=== PATIENT | male | born 1960 | race Caucasian/White ===

== ENCOUNTER 2017-03-26 13:43 | Inpatient (IN) ==
[2017-03-26] MEDS ORDERED: DILTIAZEM 50 MG/10 ML VIAL IV STA (14:12)
[2017-03-26] MEDS ORDERED: ENOXAPARIN 100 MG/ML SYRINGE SUBCUT STA (14:12)
[2017-03-26] MEDS ORDERED: ASPIRIN 325 MG TABLET PO STA (14:12)
--- NOTE | 2017-03-26 14:16 | EKG Report ---
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
--- NOTE | 2017-03-26 14:30 | XRay Report ---
Referring Physician: Ramin Bowen Exam: XR chest 1V portable Date: March 26, 2017 at 2:15 PM Reason: Chest pain Comparison: Chest one view portable February 03, 2017 Findings: The cardiac silhouette is again enlarged. The interstitial markings are slightly prominent bilaterally, which could reflect minimal pulmonary edema. No pneumothorax or definite pleural fluid is identified. No acute osseous process is seen. Impression: 1. Cardiomegaly. 2. Possible minimal pulmonary edema. PROCEDURE INTERPRETED AT [facility] DEPARTMENT OF RADIOLOGY Final Report Signed by: Dr. Alie Pearson
[2017-03-26] MEDS ORDERED: ENOXAPARIN 120 MG/0.8 ML SYRINGE SUBCUT ONE (14:51)
[2017-03-26] MEDS ORDERED: ASPIRIN 325 MG TABLET ONE (14:51)
[2017-03-26] MEDS ORDERED: DILTIAZEM 50 MG/10 ML VIAL IV ONE (14:51)
[2017-03-26 15:00] LABS: INR 1.1; PT Patient Result 11.9 SECS
[2017-03-26 15:17] LABS: Albumin 3.6 G/DL (3.4-5.0); Bilirubin,Total 1.5 MG/DL (0.2-1.0); Calcium 8.8 MG/DL (8.5-10.1); Osmolality,Calculated 279.4 MOS/KG (273-304); Total Protein 6.4 G/DL (6.4-8.3)
--- NOTE | 2017-03-26 16:20 | Emergency Department Note ---
Timothy Amado Gwan, am scribing for, and in the presence of, Ramin Bowen MD 14:21. Jessi Amado Phillip K, MD, personally performed the services described in this documentation, ascribed by Edgardo Aguirre in my presence, and it is both accurate and complete . Arrival - Arrival Chief Complaint: Chest Pain Stated Complaint: chest pain Mode of Arrival: Stretcher Limitations: No Limitations Source: Patient, Old Records Reviewed, RN Notes Reviewed Time Seen by Provider: 03/26/17 14:12 - History of Present Illness HPI Narrative: Patient is a 56 y/o obese white male who presents to the ED with a c/o sharp chest pain and SOB with an onset this morning. Patient has poor hygiene. He stated that he was laying in bed when onset occurred and that his pain stayed in his chest. He denies any cough, fever, diaphoresis or any N/V. He continued to note that he was last hospitalized 6 months ago due to CHF. He is followed by Dr. Josue and Dr. Car. During exam, pt stated that he fell yesterday and he is unsure how it happened. Onset (ago): hour(s) Consistency: constant Severity: moderate Allergies/Adverse Reactions: Allergies Allergy/AdvReac Type Severity Reaction Status Date / Time No Known Allergies Allergy Verified 03/04/17 03:46 Home Medications: Home Medications Medication Instructions Recorded Confirmed Type Carvedilol 6.25 mg PO BID 12/10/15 11/25/16 History Furosemide 20 mg PO BID 12/10/15 11/25/16 History Lisinopril 5 mg PO BEDTIME 12/10/15 11/25/16 History Potassium Chloride 10 meq PO BID 12/10/15 11/25/16 History Apixaban [Eliquis] 5 mg PO BID #60 tablet 06/20/16 11/25/16 Rx Spironolactone [Aldactone] 25 mg PO DAILY #30 tablet 06/20/16 11/25/16 Rx Folic Acid Tab 1 mg PO DAILY 10/24/16 11/25/16 History Magnesium Chloride [Slow Mag] 64 mg PO BID 10/24/16 11/25/16 History Metoprolol Tartrate 25 mg PO Q12HR #60 tablet 10/24/16 11/25/16 Rx Zolpidem Tartrate 10 mg PO BEDTIME 10/24/16 11/25/16 History dilTIAZem HCl [Diltiazem ER] 240 mg PO BID 10/24/16 11/25/16 History metFORMIN [Glucophage] 500 mg PO BID W/MEALS 10/24/16 11/25/16 History HYDROcodone/ACETAMIN 7.5-325 1 tablet PO Q6H #14 tablet 11/19/16 11/25/16 Rx [Como 7.5-325] Indomethacin Cap [Indocin Cap] 25 mg PO Q6H PRN #30 capsule 11/25/16 Rx Furosemide Tab [Lasix Tab] 40 mg PO DAILY #14 tablet 02/03/17 Rx Furosemide Tab [Lasix Tab] 20 mg PO BID DIURETIC #20 tablet 03/04/17 Rx HYDROcodone/ACETAMIN 7.5-325 1 tablet PO Q6H #14 tablet 03/04/17 Rx [Como 7.5-325] Review of System - Review of System 12 point system: reviewed and no additional remarkable complaints except as stated - Review of System Constitutional: Absent: chills, fever Eyes: Absent: discharge Head/Ears/Nose/Throat: Absent: earache Respiratory: Absent: cough Cardiovascular: Present: as per HPI, chest pain Gastrointestinal: Absent: abdominal pain, nausea, vomiting, diarrhea Genitourinary male: Absent: urgency, frequency Musculoskeletal: Absent: arm pain, back pain, leg pain, neck pain Skin: Absent: rash, lesions Neurological: Absent: headache, weakness Medical,Surgical,& Family Hx - Medical History Cardio: History of: Cardiac Dysrhythmia (A-FIB), CHF, Hypertension, [place] Neurology: No history of: Seizures Endocrine: History of: Diabetes Mellitus (NIDDM) - Surgical History Cardiac Surgeries: Patient Denies: Cardiac Catheterization Abdominal Surgeries: Surgical HX of: Appendectomy - Social History Smoking Status: Never smoker Exam Vital Signs: Vital Signs Temperature 98.2 F 03/26/17 13:45 Pulse Rate 142 H 03/26/17 13:58 Respiratory Rate 20 03/26/17 13:58 Blood Pressure 115/88 03/26/17 13:45 O2 Sat by Pulse Oximetry 98 03/26/17 13:45 - General General appearance: alert, in no apparent distress, obese - Head Head exam: Present: atraumatic, normocephalic - Eye Eye exam: Present: normal appearance, PERRL, EOMI - ENT ENT exam: Present: normal oropharynx, mucous membranes moist, TM's normal bilaterally, normal external ear exam - Neck Neck exam: Present: full ROM, trachea midline. Absent: tenderness - Chest Chest inspection: Present: symmetric chest wall rise. Absent: tenderness - Respiratory Respiratory exam: Present: normal lung sounds bilaterally. Absent: respiratory distress - Cardiovascular Cardiovascular exam: Present: tachycardia, irregular rhythm - Abdominal Exam Abdominal exam: Present: soft, normal bowel sounds. Absent: tenderness - Extremities Exam Extremities exam: Present: other (+1 pitting edema bilaterally) - Back Exam Back exam: Present: full ROM. Absent: tenderness - Neurological Exam Neurological exam: Present: alert, oriented X3, CN II-XII intact. Absent: motor sensory deficit - Psychiatric Psychiatric exam: Present: normal affect, normal mood - Skin Skin exam: Present: warm, dry, intact, normal color Course Course Narrative: Patient discussed with the hospitalist will admit for monitoring and control of his atrial fib. Results - Labs CBC & BMP: 03/26/17 14:45 Lab Results: I have reviewed the patients labs (Troponin is negative) Labs: Laboratory Tests 03/26/17 14:45 INR 1.1 PT Patient/Control Mix 11.9 D Laboratory Tests 03/26/17 03/26/17 03/26/17 14:45 14:45 14:45 INR 1.1 PT Patient/Control Mix 11.9 D Sodium 140 Potassium 4.0 Chloride 107 Carbon Dioxide 23 BUN 10 Creatinine 0.90 Glucose 129 H Total Bilirubin 1.50 H B-Natriuretic Peptide 310 H - EKG EKG results: interpreted by MAGDA (Atrial fibrillation with RVR) - Diagnostic Findings Procedure: Chest x-ray: report reviewed by me (1. Cardiomegaly. 2. Possible minimal pulmonary edema. ) Disposition Clinical Impression: Atrial fibrillation with rapid ventricular response, Chest pain, Possible angina Case discussed with: patient Disposition: Still a Patient Condition: Guarded Additional Instructions: Admit to the hospitalist
[2017-03-26] MEDS ORDERED: FUROSEMIDE 40 MG/4 ML VIAL IV STA (16:21)
[2017-03-26] MEDS ORDERED: FUROSEMIDE 40 MG/4 ML VIAL ONE (16:23)
[2017-03-26 16:35] LABS: Basophils # 0.1 10*3/uL (0.0-0.2); Basophils % 1.2 % (0.0-0.8); Eosinophils # 0.2 10*3/uL (0.0-0.87); Eosinophils % 2.6 % (0.00-10.9); Hematocrit 47.6 VOL% (42.0-52.0); Hemoglobin 16.2 GM/DL (14.0-18.0); Immature Granulocytes % 0.5 %; Immature Granulocytes Absolute 0.03 #; Lymphocytes # 1.2 10*3/uL (1.4-4.0); Lymphocytes % 21.2 % (21.2-54.2); Mean Corpuscular Hemoglobin 33 PG (27-34); Mean Corpuscular Volume 97.5 FL (87-102); Mean Platelet Volume 11.5 FL (9.6-12.0); Monocytes # 0.5 10*3/uL (0.11-0.8); Monocytes % 8.3 % (1.7-12.7); Neutrophils # 3.8 10*3/uL (1.4-7.4); Neutrophils % 66.2 % (38.7-73.9); Platelet Count 125 T/CUMM (130-400); Red Blood Count 4.88 MC/CUMM (3.8-5.5); Red Cell Distribution Width 14.6 % (9.3-17.3); White Blood Count 5.8 T/CUMM (4-12)
--- NOTE | 2017-03-26 16:41 | Hospitalist History & Physical ---
Assessment and Plan - Time spent with patient Time spent with patient: Greater than 30 minutes (1) Atrial fibrillation with rapid ventricular response Status: Acute Assessment and plan: Patient is currently in atrial fibrillation with rapid ventricular response. He is received IV Cardizem in the emergency room which we will continue in an attempt to obtain rate control. He states he has been compliant with his medications however he has multiple bottles in his back which he does admit to not taking which are primarily antibiotics and he also has multiple bottles of duplicate medications including Coreg and metoprolol. We will begin Lovenox at this time. He may benefit from outpatient sleep study in the future as well. Will reinitiate his home medications, obtain serial cardiac isoenzymes and EKG, d-dimer plus or minus evaluation for possible pulmonary emboli/lower extremity DVT, and consult cardiology for their assistance. Current Visit: Yes (2) Congestive heart failure Status: Acute Assessment and plan: The patient is decompensated which may be rate related. We will attempt to obtain rate control and diuresed gently and will also initiate meds for his acute on chronic systolic heart failure to include denise inhibitors if he can tolerate. Current Visit: Yes Qualifiers: Congestive heart failure type: systolic (3) Diabetes mellitus Status: Acute Assessment and plan: We will continue his metformin unless he receives contrast at which time we will withhold. Will place him on Accu-Cheks with sliding scale insulin. Current Visit: Yes Qualifiers: Diabetes mellitus type: type 2 History of Present Illness Chief complaint: Chest pain, shortness of breath History of present illness: Mr. Pearson is a 56 year old white male patient states he fell twice last evening because he has neuropathy in his legs. This morning approximately 8 AM he states he woke up with sharp mid chest pain with associated shortness of breath but no nausea, vomiting, diaphoresis. He denies any headache, visual or auditory disturbances, fever, chills, diarrhea, constipation, melena, hematochezia, hematemesis, dysuria, hematuria, frequency urgency or incontinence , focal motor weakness or paresthesias. He was seen in our emergency department and found to be in atrial fibrillation with rapid ventricular response. He states that he has dyspnea on exertion and ambulates at home with the use of a walker. He states he only sleeps with one pillow at night. He states that he has had a "light heart attack" in the past. He states he had been on blood thinners in the past but they took him off of everything including his aspirin. His primary care provider is Dr. Darryl Car and his contracting manager Dr. Dixon Josue. He was hospitalized last year for similar symptoms at which time he had echocardiogram which noted the following: Echo from Jun 2016: Severely limited study Mild increased left ventricular cavity size with moderately decreased left ventricular systolic function, left ventricular ejection fraction is estimated at 30-35%. Mild concentric left ventricular hypertrophy with diastolic dysfunction. Bilateral atrial enlargement. Mildly thickened mitral valve with mild mitral regurgitation. Home Medications Medication Instructions Recorded Confirmed Type Carvedilol 6.25 mg PO BID 12/10/15 03/26/17 History Potassium Chloride 10 meq PO BID 12/10/15 03/26/17 History Folic Acid Tab 1 mg PO DAILY 10/24/16 03/26/17 History Magnesium Chloride [Slow Mag] 64 mg PO BID 10/24/16 03/26/17 History Metoprolol Tartrate 25 mg PO Q12HR #60 tablet 10/24/16 03/26/17 Rx Zolpidem Tartrate 10 mg PO BEDTIME 10/24/16 03/26/17 History dilTIAZem HCl [Diltiazem ER] 240 mg PO BID 10/24/16 03/26/17 History metFORMIN [Glucophage] 500 mg PO BID 10/24/16 03/26/17 History Furosemide Tab [Lasix Tab] 40 mg PO DAILY #14 tablet 02/03/17 03/26/17 Rx Ciprofloxacin HCl [Ciprofloxacin 500 mg PO Q12H 03/26/17 03/26/17 History Tab] Furosemide Tab [Lasix Tab] 20 mg PO BID 03/26/17 03/26/17 History HYDROcodone/ACETAMIN 10-325 [[place] 1 tablet PO QID 03/26/17 03/26/17 History 10-325] Sulfameth/Trimeth 800-160 Tab 1 tablet PO BID 03/26/17 03/26/17 History [Bactrim DS Tab] Allergies Allergy/AdvReac Type Severity Reaction Status Date / Time No Known Allergies Allergy Verified 03/04/17 03:46 Medical,Surgical,& Family Hx - Medical History Cardio: History of: Cardiac Dysrhythmia (A-FIB), CHF, Hypertension, [place] Neurology: No history of: Seizures Endocrine: History of: Diabetes Mellitus (NIDDM) - Surgical History Cardiac Surgeries: Patient Denies: Cardiac Catheterization Abdominal Surgeries: Surgical HX of: Appendectomy - Family History Family History: Reports;: Family Cancer (Father had colon cancer) - Social History Smoking Status: Never smoker Frequency of Alcohol Use: None Type of Drug Use: None Marital Status: Lives With:: Spouse Functional capacity: uses cane/walker 12 point system: reviewed and no additional remarkable complaints except as stated Exam - Constitutional Vitals: Period Temp Pulse Resp BP Sys/Lopez Pulse Ox Last 24 Hr 98.2 F-98.2 F 140-142 18-20 115-115/88-88 98 General appearance: no acute distress, disheveled - Head Head exam: Present: normocephalic, atraumatic - Eye Eye exam: Present: EOMI Pupils: Present: WALTER - ENT ENT exam: Present: normal oropharynx - Neck Neck exam: Present: normal inspection. Absent: lymphadenopathy, meningismus, tenderness, thyromegaly - Respiratory Respiratory exam: Present: clear to auscultation bilaterally. Absent: rales, rhonchi, wheezes - Cardiovascular Cardiovascular exam: Present: irregular rhythm, tachycardia. Absent: systolic murmur - GI/Abdominal GI/Abdominal exam: Present: normal bowel sounds, soft. Absent: distended, mass , tenderness, rebound - Extremities Exam Extremities exam: Present: edema (1+ bilateral lower extreme). Absent: calf tenderness - Back Exam Back exam: Present: normal inspection - Neurological Exam Neurological exam: Present: alert, oriented X3, CN II-XII intact, other ( Decreased sensation of lower extremities to touch) - Psychiatric Psychiatric exam: Present: normal affect, normal mood. Absent: agitated, anxious - Skin Skin exam: Present: warm, dry. Absent: rash Results - Labs CBC & BMP: 03/26/17 16:32 03/26/17 14:45 Lab Results: I have reviewed the past 24 hour labs - EKG EKG shows: tachycardia, atrial fibrillation - Diagnostic Findings Procedure: Chest x-ray: report reviewed by me
[2017-03-26] MEDS ORDERED: DILTIAZEM INJ 100 MG in SODIUM CHLORIDE 0.9% 100 ML IV SCH (17:30)
[2017-03-26] MEDS ORDERED: DEXTROSE 50% 25 GM/50 ML VIAL IV PRN (18:12)
[2017-03-26] MEDS ORDERED: GLUCAGON 1 MG VIAL IM PRN (18:12)
[2017-03-26] MEDS ORDERED: ACETAMINOPHEN 325 MG TABLET PO PRN (18:12)
[2017-03-26] MEDS ORDERED: ONDANSETRON 4 MG/2 ML VIAL IV PRN (18:12)
[2017-03-26] MEDS: NITROGLYCERIN 2% OINT 1 INCH/GM PACK TOP SCH ×2 (19:19→23:35)
[2017-03-26] MEDS: metFORMIN 500 MG TABLET PO SCH (22:15)
[2017-03-26] MEDS: MAGNESIUM CHLORIDE 64 MG TABLET PO SCH (22:15)
[2017-03-26] MEDS: CARVEDILOL 6.25 MG TABLET PO SCH (22:15)
[2017-03-26] MEDS: POTASSIUM CHLORIDE 10 MEQ TABLET PO SCH (22:16)
[2017-03-26] MEDS: INSULIN REGULAR 100 UNIT/ML SUBCUT SCH (22:18)
[2017-03-26] MEDS: ZALEPLON 5 MG CAPSULE PO SCH (23:36)
[2017-03-27] MEDS: ENOXAPARIN 120 MG/0.8 ML SYRINGE SUBCUT SCH ×2 (05:00→17:24)
[2017-03-27] MEDS: FUROSEMIDE 40 MG/4 ML VIAL IV SCH ×3 (05:01→17:20)
[2017-03-27 05:25] LABS: Calcium 8.3 MG/DL (8.5-10.1); Osmolality,Calculated 282.1 MOS/KG (273-304); Potassium 4.4 MMOL/L (3.5-5.1); Risk Ratio 4.04; VLDL CHOLESTEROL 19.2 MG/DL
[2017-03-27] MEDS: NITROGLYCERIN 2% OINT 1 INCH/GM PACK TOP SCH ×4 (06:06→23:28)
[2017-03-27 07:18] LABS: Basophils % 0.9 % (0.0-0.8); Eosinophils # 0.2 10*3/uL (0.0-0.87); Eosinophils % 3.9 % (0.00-10.9); Hematocrit 42.8 VOL% (42.0-52.0); Hemoglobin 14.5 GM/DL (14.0-18.0); Immature Granulocytes % 0.4 %; Immature Granulocytes Absolute 0.02 #; Lymphocytes # 1.4 10*3/uL (1.4-4.0); Lymphocytes % 30.1 % (21.2-54.2); Mean Corpuscular HGB Conc 33.9 GM/DL (32-36); Mean Corpuscular Hemoglobin 34 PG (27-34); Mean Corpuscular Volume 101.4 FL (87-102); Mean Platelet Volume 11.2 FL (9.6-12.0); Monocytes # 0.5 10*3/uL (0.11-0.8); Monocytes % 10.1 % (1.7-12.7); Neutrophils # 2.5 10*3/uL (1.4-7.4); Neutrophils % 54.6 % (38.7-73.9); Platelet Count 109 T/CUMM (130-400); Red Blood Count 4.22 MC/CUMM (3.8-5.5); Red Cell Distribution Width 14.8 % (9.3-17.3); White Blood Count 4.7 T/CUMM (4-12)
[2017-03-27] MEDS: INSULIN REGULAR 100 UNIT/ML SUBCUT SCH ×4 (08:05→21:08)
[2017-03-27] MEDS: metFORMIN 500 MG TABLET PO SCH ×2 (08:40→21:07)
[2017-03-27] MEDS: FOLIC ACID 1 MG TABLET PO SCH (08:40)
[2017-03-27] MEDS: LISINOPRIL 5 MG TABLET PO SCH (08:40)
[2017-03-27] MEDS: MAGNESIUM CHLORIDE 64 MG TABLET PO SCH ×2 (08:40→21:07)
[2017-03-27] MEDS: CARVEDILOL 6.25 MG TABLET PO SCH (08:40)
[2017-03-27] MEDS: ASPIRIN 325 MG TABLET PO SCH (08:40)
[2017-03-27] MEDS: POTASSIUM CHLORIDE 10 MEQ TABLET PO SCH ×2 (08:40→21:07)
--- NOTE | 2017-03-27 09:59 | Cardiology Consult Note ---
<Erika Magaña - Last Filed: 03/27/17 09:03> Assessment and Plan - Time spent with patient Time spent with patient: Greater than 30 minutes (1) Atypical chest pain Status: Acute Assessment and plan: SEE PLAN OF CARE LISTED BELOW. Current Visit: Yes (2) Hypertension Status: Chronic Assessment and plan: SEE PLAN OF CARE LISTED BELOW. Current Visit: Yes (3) Obesity Status: Chronic Assessment and plan: SEE PLAN OF CARE LISTED BELOW. Current Visit: Yes (4) Congestive heart failure Status: Acute Assessment and plan: SEE PLAN OF CARE LISTED BELOW. Current Visit: Yes Qualifiers: Congestive heart failure type: systolic Congestive heart failure chronicity : acute on chronic Qualified Code(s): I50.23 - Acute on chronic systolic ( congestive) heart failure (5) Atrial fibrillation with rapid ventricular response Status: Acute Assessment and plan: SEE PLAN OF CARE LISTED BELOW. Current Visit: Yes (6) Diabetes mellitus Status: Chronic Assessment and plan: SEE PLAN OF CARE LISTED BELOW. Current Visit: Yes Qualifiers: Diabetes mellitus type: type 2 (7) Alcoholic cardiomyopathy Status: Chronic Assessment and plan: SEE PLAN OF CARE LISTED BELOW. Current Visit: Yes (8) Noncompliance with medication regimen Status: Chronic Assessment and plan: SEE PLAN OF CARE LISTED BELOW. Current Visit: Yes (9) Tobacco abuse Status: Chronic Assessment and plan: SEE PLAN OF CARE LISTED BELOW. Current Visit: Yes History of Present Illness - Data of Consult Patient: known to practice within the last 3 years Consult date: 03/27/17 Requesting Physician: Eh Mclaughlin Primary care physician: Darryl Car - Consult Narrative Reason for consult: afib RVR, CHF History of present illness: [employer] Designer: Dr. Josue PCP: Dr. Car Mr. Pearson is a 56 year old male who is not a very good historian, routinely followed by Dr. Josue. Patient presented to the emergency room yesterday evening with complaints of chest pain and shortness of breath. Patient has cardiac risk factors significant for tobacco abuse (chewing tobacco), obesity, hypertension, diabetes and sedentary lifestyle. Patient has past medical history of alcoholic cardiomyopathy, congestive heart failure (systolic dysfunction), chronic atrial fibrillation, alcoholism and noncompliance with medications. Patient reports that he has never undergone heart catheterization or cardiac stress testing. He was last seen in the cardiology clinic November 2016. At that time, Dr. Josue felt that he was noncompliant with medications. Per Dr. Josue his clinic note Eliquis was added previously. However, patient reports that he has not taken Eliquis in approximately 3-4 months as he ran out of his prescription. He reports that he had been given samples and when these ran out he could not afford this medication. Reports that he did not attempt to call the [facility] in order to try to get more samples. He just simply quit taking the medication. Patient was in his usual state of health until yesterday when he began experiencing shortness of breath and sharp left-sided chest pain while lying down in bed. Reports that this lasted approximately 3-4 hours. Patient is unable to identify any specific alleviating or aggravating factors. He reports that this does not have any type of exertional component. Patient is unable to rate his pain on a scale from 1-10. This was nonradiating. Not associated with nausea, vomiting, diaphoresis or heart palpitations/racing. He confirms orthopnea and worsening lower extremity swelling. Patient reports that his chest pain was continuous for 3-4 hours. At that point, he felt that he needed to be further evaluated in the emergency department. Upon arrival to the ER, he was noted to be in atrial fibrillation with rapid ventricular response, heart rates as high as 130. He was also given nitroglycerin which he reports did not have any effect on his chest pain. Later that day, he tells me that his chest pain went away continuously. He is not sure exactly what relieved his pain. Patient was started on IV Cardizem and admitted under hospitalist's service. He has been housed on the telemetry unit. Cardiology has been consulted to further assist in patient's atrial fibrillation and congestive heart failure treatment. Patient was seen and examined on the telemetry unit. He remains in atrial fibrillation with a controlled ventricular response, heart rates in the 80s. Patient's chest x-ray was suggestive for cardiomegaly and mild pulmonary edema. BNP only mildly elevated at 310. TSH and T4 within normal limits. Cardiac biomarkers have been negative 3. EKG reveals atrial fibrillation with rapid ventricular response with nonspecific T-wave abnormality. Patient's acute on chronic congestive heart failure most likely related to medication noncompliance and atrial fibrillation with rapid ventricular response. At this point, I will order echocardiogram in order to reevaluate patient's systolic function and continue to diurese gently. Monitor I's and O's and daily weights. Continue SAGRARIO inhibitor and beta-henny. I will transition patient to p.o. Cardizem today and continue to anticoagulate with therapeutic dose of Lovenox. Monitor patient overnight on telemetry. I will further discuss with Dr. Irby and await his further recommendations. ASSESSMENT/PLAN : 1. ATYPICAL CHEST PAIN - Patient's chest pain is atypical in nature. Most likely related to patient's atrial fibrillation with RVR. Troponin has been negative 3. EKG reveals atrial fibrillation with rapid ventricular response with nonspecific T-wave abnormality. I do not feel that this is ACS. Patient is not demonstrating compliance and for that reason I do not feel that patient is a candidate for further workup. He is not having any anginal type symptoms and cardiac biomarkers have been negative thus far. At this point I would recommend patient to continue daily aspirin, beta-henny and follow-up with Dr. Josue post discharge. Lipid panel has been reviewed. Cholesterol is stable. 2. ACUTE ON CHRONIC CONGESTIVE HEART FAILURE SECONDARY TO SYSTOLIC DYSFUNCTION - Suspect that this is secondary to atrial fibrillation with RVR as well as medication noncompliance. Patient's chest x-ray was suggestive for mild pulmonary edema and cardiomegaly. BNP only mildly elevated at 310. Most recent ejection fraction was noted to be 30-35% from June and . We will repeat echocardiogram in order to reevaluate patient's systolic function. Continue to diurese with IV Lasix. Continue beta-henny and SAGRARIO inhibitor. Will increase these medications as patient's blood pressure will allow. Daily weights and strict I's and O's. Will consider adding Aldactone. 4. ALCOHOLIC CARDIOMYOPATHY - Most recent ejection fraction 30-35%, June 2016. We will repeat echocardiogram in order to reevaluate patient's systolic function. Continue to diurese with IV Lasix. Continue beta-henny and SAGRARIO inhibitor. Will increase these medications as patient's blood pressure will allow. 5. ATRIAL FIBRILLATION WITH RVR - Suspect that patient is noncompliant with his medication regimen. Patient is now rate controlled. This appears to be chronic. Will transition patient to p.o. Cardizem today. Continue beta- blockade. In the past, patient was anticoagulated with Eliquis. However, he reports that he has not been on this medication for 3-4 months as he ran out of his prescription. He reports that he has been given samples and when these ran out he could not afford this particular medication. At this point, he is being anticoagulated with therapeutic dose of Lovenox. For now, this will be continued. I will further discuss with Dr. Irby about other anticoagulation options. It is questionable whether patient is a candidate for Coumadin as he will most likely not follow up appropriately for INR checks. NOAC will most likely be the best choice. Will attempt to choose one that will be covered by patient's insurance at discharge. Also, patient may benefit from sleep study. 6. DIABETES - Recently diagnosed. Defer management to attending. 7. HYPERTENSION - Well controlled. Continue current plan of care. Will adjust medications as needed throughout his hospitalization. 8. MEDICATION NONCOMPLIANCE DUE TO INADEQUATE FUNDS -counseled patient on the importance of medication compliance. Will also attempt to prescribe medications that are affordable and covered by patient's insurance company. 9. TOBACCO ABUSE (CHEWING TOBACCO) - Educated patient on the importance of cessation of tobacco abuse. 10. OBESITY - Counseled patient on the importance of weight loss. Further plan and addendum to follow per Dr. Irby. CC: Darrian De La Rosa MD - Home Medications and Allergies Home Medications: Home Medications Medication Instructions Recorded Confirmed Type Carvedilol 6.25 mg PO BID 12/10/15 03/26/17 History Potassium Chloride 10 meq PO BID 12/10/15 03/26/17 History Folic Acid Tab 1 mg PO DAILY 10/24/16 03/26/17 History Magnesium Chloride [Slow Mag] 64 mg PO BID 10/24/16 03/26/17 History Metoprolol Tartrate 25 mg PO Q12HR #60 tablet 10/24/16 03/26/17 Rx Zolpidem Tartrate 10 mg PO BEDTIME 10/24/16 03/26/17 History dilTIAZem HCl [Diltiazem ER] 240 mg PO BID 10/24/16 03/26/17 History metFORMIN [Glucophage] 500 mg PO BID 10/24/16 03/26/17 History Furosemide Tab [Lasix Tab] 40 mg PO DAILY #14 tablet 02/03/17 03/26/17 Rx Ciprofloxacin HCl [Ciprofloxacin 500 mg PO Q12H 03/26/17 03/26/17 History Tab] HYDROcodone/ACETAMIN 10-325 [[place] 1 tablet PO QID 03/26/17 03/26/17 History 10-325] Sulfameth/Trimeth 800-160 Tab 1 tablet PO BID 03/26/17 03/26/17 History [Bactrim DS Tab] Allergies/Adverse Reactions: Allergies Allergy/AdvReac Type Severity Reaction Status Date / Time No Known Allergies Allergy Verified 03/04/17 03:46 - Constitutional Constitutional: Present: fatigue, weight gain. Absent: chills, fever(s), frequent falls, weakness - Cardiovascular Cardiovascular: Present: chest pain at rest, dyspnea, edema, orthopnea, PND. Absent: chest pain with activity, claudication, diaphoresis, dyspnea on exertion , radiating jaw, neck or arm pain, lightheadedness, palpitations - Respiratory Respiratory: Present: cough, dyspnea, snoring. Absent: hemoptysis, dyspnea on exertion, wheezing, pain on inspiration, change in phlegm color - Gastrointestinal Gastrointestinal: Absent: abdominal pain, change in bowel habits, coffee ground emesis, hematemesis, hematochezia, loose stools, melena, nausea, vomiting - Neurological Neurological: Absent: abnormal gait, abnormal speech, behavioral changes, dizziness, frequent falls, syncope - Hematologic/Lymphatic Hematologic/Lymphatic: Absent: easy bleeding, easy bruising, lymphadenopathy Medical,Surgical,& Family Hx - Medical History Cardio: History of: Cardiac Dysrhythmia (A-FIB), CHF, Hypertension, Cardiovascular Problems (Alcoholic cardiomyopathy) Neurology: No history of: Seizures Endocrine: History of: Diabetes Mellitus (NIDDM) Musculoskeletal: History of: Back/Neck Problems, Herniated Disk - Surgical History Abdominal Surgeries: Surgical HX of: Appendectomy, EGD - Family History Family History: Reports;: Family Cancer (Father had colon cancer), Family Hypertension - Social History Smoking Status: Never smoker Frequency of Alcohol Use: Frequently Type of Drug Use: None Marital Status: Single Lives With:: Alone Functional capacity: independent ambulation Physical Examination Vital Signs Temp Pulse Resp BP Pulse Ox 98.2 F 140 H 18 115/88 98 03/26/17 13:45 03/26/17 13:45 03/26/17 13:45 03/26/17 13:45 03/26/17 13:45 Other: General: Appears well with no apparent distress. Obese. Appears comfortable. HEENT: PERRL, normocephalic, atraumatic. Mucous membranes moist. No jaundice noted. Conjunctiva moist and clear, sclerae anicteric Neck: No JVD/HJR, no thyromegaly or lymphadenopathy noted. No carotid bruit appreciated Cardiac: Irregular rhythm. Grade 1 systolic murmur. Lungs: Clear to auscultation with decreased breath sounds and bases. Requiring oxygen via nasal cannula Abdomen: Soft, bowel sounds normoactive. Nontender and nondistended. No abdominal bruit or thrill noted. No masses noted. Extremities: No clubbing, cyanosis noted. 2+ bilateral lower extremity edema. Capillary refill less than 3 seconds. Skin: No unusual lesions or rashes. No skin breakdown appreciated. Neuro: Awake, alert and oriented 3. Moves all extremities well without hemiparesis or paralysis. No essential tremor is appreciated. Result/EKG - Labs CBC & BMP: 03/27/17 04:31 03/27/17 04:26 Lab Results: I have reviewed the past 24 hour labs Labs: Laboratory Results - last 24 hr 03/26/17 03/26/17 03/26/17 14:45 14:45 14:45 WBC RBC Hgb Hct MCV MCH MCHC RDW Plt Count MPV Neut % (Auto) Lymph % (Auto) [place] % (Auto) Eos % (Auto) Baso % (Auto) Neut # (Auto) Lymph # (Auto) [place] # (Auto) Eos # (Auto) Baso # (Auto) Immature Gran % Nucleated RBC % Immature Gran # Nucleated RBCs # INR 1.1 PT Patient/Control Mix 11.9 D D-Dimer, Quantitative Sodium 140 Potassium 4.0 Chloride 107 Carbon Dioxide 23 Anion Gap 14.0 BUN 10 Creatinine 0.90 GFR Calculation 130 BUN/Creatinine Ratio 11.00 Glucose 129 H POC Glucose Hemoglobin A1c Calculated Osmolality 279.4 Calcium 8.8 Total Bilirubin 1.50 H AST 26 ALT 25 Alkaline Phosphatase 74 Troponin I < 0.015 B-Natriuretic Peptide Total Protein 6.4 Albumin 3.6 Globulin 2.8 Albumin/Globulin Ratio 1.2 Triglycerides Cholesterol LDL Cholesterol VLDL Cholesterol HDL Cholesterol Heart Disease Risk Ratio Free T4 TSH 3rd Generation 03/26/17 03/26/17 03/26/17 14:45 14:45 14:45 WBC RBC Hgb Hct MCV MCH MCHC RDW Plt Count MPV Neut % (Auto) Lymph % (Auto) [place] % (Auto) Eos % (Auto) Baso % (Auto) Neut # (Auto) Lymph # (Auto) [place] # (Auto) Eos # (Auto) Baso # (Auto) Immature Gran % Nucleated RBC % Immature Gran # Nucleated RBCs # INR PT Patient/Control Mix D-Dimer, Quantitative <= 0.5 Sodium Potassium Chloride Carbon Dioxide Anion Gap BUN Creatinine GFR Calculation BUN/Creatinine Ratio Glucose POC Glucose Hemoglobin A1c Calculated Osmolality Calcium Total Bilirubin AST ALT Alkaline Phosphatase Troponin I B-Natriuretic Peptide 310 H Total Protein Albumin Globulin Albumin/Globulin Ratio Triglycerides Cholesterol LDL Cholesterol VLDL Cholesterol HDL Cholesterol Heart Disease Risk Ratio Free T4 TSH 3rd Generation 2.030 03/26/17 03/26/17 03/26/17 14:45 14:45 16:32 WBC 5.8 RBC 4.88 Hgb 16.2 Hct 47.6 MCV 97.5 MCH 33 MCHC 34.0 RDW 14.6 Plt Count 125 L MPV 11.5 Neut % (Auto) 66.2 Lymph % (Auto) 21.2 [place] % (Auto) 8.3 Eos % (Auto) 2.6 Baso % (Auto) 1.2 H Neut # (Auto) 3.8 Lymph # (Auto) 1.2 L [place] # (Auto) 0.5 Eos # (Auto) 0.2 Baso # (Auto) 0.1 Immature Gran % 0.5 Nucleated RBC % 0.0 Immature Gran # 0.03 Nucleated RBCs # 0.00 INR PT Patient/Control Mix D-Dimer, Quantitative Sodium Potassium Chloride Carbon Dioxide Anion Gap BUN Creatinine GFR Calculation BUN/Creatinine Ratio Glucose POC Glucose Hemoglobin A1c 5.4 Calculated Osmolality Calcium Total Bilirubin AST ALT Alkaline Phosphatase Troponin I B-Natriuretic Peptide Total Protein Albumin Globulin Albumin/Globulin Ratio Triglycerides Cholesterol LDL Cholesterol VLDL Cholesterol HDL Cholesterol Heart Disease Risk Ratio Free T4 1.11 TSH 3rd Generation 03/26/17 03/26/17 03/26/17 18:58 20:08 21:29 WBC RBC Hgb Hct MCV MCH MCHC RDW Plt Count MPV Neut % (Auto) Lymph % (Auto) [place] % (Auto) Eos % (Auto) Baso % (Auto) Neut # (Auto) Lymph # (Auto) [place] # (Auto) Eos # (Auto) Baso # (Auto) Immature Gran % Nucleated RBC % Immature Gran # Nucleated RBCs # INR PT Patient/Control Mix D-Dimer, Quantitative Sodium Potassium Chloride Carbon Dioxide Anion Gap BUN Creatinine GFR Calculation BUN/Creatinine Ratio Glucose POC Glucose 145 H Hemoglobin A1c Calculated Osmolality Calcium Total Bilirubin AST ALT Alkaline Phosphatase Troponin I < 0.015 < 0.015 B-Natriuretic Peptide Total Protein Albumin Globulin Albumin/Globulin Ratio Triglycerides Cholesterol LDL Cholesterol VLDL Cholesterol HDL Cholesterol Heart Disease Risk Ratio Free T4 TSH 3rd Generation 03/27/17 03/27/17 03/27/17 04:26 04:31 07:21 WBC 4.7 RBC 4.22 Hgb 14.5 Hct 42.8 MCV 101.4 MCH 34 MCHC 33.9 RDW 14.8 Plt Count 109 L MPV 11.2 Neut % (Auto) 54.6 Lymph % (Auto) 30.1 [place] % (Auto) 10.1 Eos % (Auto) 3.9 Baso % (Auto) 0.9 H Neut # (Auto) 2.5 Lymph # (Auto) 1.4 [place] # (Auto) 0.5 Eos # (Auto) 0.2 Baso # (Auto) 0.0 Immature Gran % 0.4 Nucleated RBC % 0.0 Immature Gran # 0.02 Nucleated RBCs # 0.00 INR PT Patient/Control Mix D-Dimer, Quantitative Sodium 142 Potassium 4.4 Chloride 109 H Carbon Dioxide 23 Anion Gap 14.4 BUN 13 Creatinine 1.00 GFR Calculation 116 BUN/Creatinine Ratio 13.00 Glucose 99 POC Glucose 100 Hemoglobin A1c Calculated Osmolality 282.1 Calcium 8.3 L Total Bilirubin AST ALT Alkaline Phosphatase Troponin I B-Natriuretic Peptide Total Protein Albumin Globulin Albumin/Globulin Ratio Triglycerides 96 Cholesterol 101 LDL Cholesterol 81.0 VLDL Cholesterol 19.2 HDL Cholesterol 25 L Heart Disease Risk Ratio 4.04 Free T4 TSH 3rd Generation - EKG EKG results: interpreted by me EKG shows: atrial fibrillation <James Irby - Last Filed: 03/27/17 16:37> History of Present Illness - Consult Narrative History of present illness: Mr. Pearson is a 56 year old male CC: Darrian De La Rosa MD Physical Examination Vital Signs Temp Pulse Resp BP Pulse Ox 98.2 F 140 H 18 115/88 98 03/26/17 13:45 03/26/17 13:45 03/26/17 13:45 03/26/17 13:45 03/26/17 13:45 Result/EKG - Labs CBC & BMP: 03/27/17 04:31 03/27/17 04:26 Labs: Laboratory Results - last 24 hr 03/26/17 03/26/17 03/26/17 14:45 14:45 14:45 WBC RBC Hgb Hct MCV MCH MCHC RDW Plt Count MPV Neut % (Auto) Lymph % (Auto) [place] % (Auto) Eos % (Auto) Baso % (Auto) Neut # (Auto) Lymph # (Auto) [place] # (Auto) Eos # (Auto) Baso # (Auto) Immature Gran % Nucleated RBC % Immature Gran # Nucleated RBCs # D-Dimer, Quantitative <= 0.5 Sodium Potassium Chloride Carbon Dioxide Anion Gap BUN Creatinine GFR Calculation BUN/Creatinine Ratio Glucose POC Glucose Hemoglobin A1c Calculated Osmolality Calcium Troponin I Triglycerides Cholesterol LDL Cholesterol VLDL Cholesterol HDL Cholesterol Heart Disease Risk Ratio Free T4 1.11 TSH 3rd Generation 2.030 03/26/17 03/26/17 03/26/17 14:45 18:58 20:08 WBC RBC Hgb Hct MCV MCH MCHC RDW Plt Count MPV Neut % (Auto) Lymph % (Auto) [place] % (Auto) Eos % (Auto) Baso % (Auto) Neut # (Auto) Lymph # (Auto) [place] # (Auto) Eos # (Auto) Baso # (Auto) Immature Gran % Nucleated RBC % Immature Gran # Nucleated RBCs # D-Dimer, Quantitative Sodium Potassium Chloride Carbon Dioxide Anion Gap BUN Creatinine GFR Calculation BUN/Creatinine Ratio Glucose POC Glucose 145 H Hemoglobin A1c 5.4 Calculated Osmolality Calcium Troponin I < 0.015 Triglycerides Cholesterol LDL Cholesterol VLDL Cholesterol HDL Cholesterol Heart Disease Risk Ratio Free T4 TSH 3rd Generation 03/26/17 03/27/17 03/27/17 21:29 04:26 04:31 WBC 4.7 RBC 4.22 Hgb 14.5 Hct 42.8 MCV 101.4 MCH 34 MCHC 33.9 RDW 14.8 Plt Count 109 L MPV 11.2 Neut % (Auto) 54.6 Lymph % (Auto) 30.1 [place] % (Auto) 10.1 Eos % (Auto) 3.9 Baso % (Auto) 0.9 H Neut # (Auto) 2.5 Lymph # (Auto) 1.4 [place] # (Auto) 0.5 Eos # (Auto) 0.2 Baso # (Auto) 0.0 Immature Gran % 0.4 Nucleated RBC % 0.0 Immature Gran # 0.02 Nucleated RBCs # 0.00 D-Dimer, Quantitative Sodium 142 Potassium 4.4 Chloride 109 H Carbon Dioxide 23 Anion Gap 14.4 BUN 13 Creatinine 1.00 GFR Calculation 116 BUN/Creatinine Ratio 13.00 Glucose 99 POC Glucose Hemoglobin A1c Calculated Osmolality 282.1 Calcium 8.3 L Troponin I < 0.015 Triglycerides 96 Cholesterol 101 LDL Cholesterol 81.0 VLDL Cholesterol 19.2 HDL Cholesterol 25 L Heart Disease Risk Ratio 4.04 Free T4 TSH 3rd Generation 03/27/17 03/27/17 03/27/17 07:21 11:51 15:25 WBC RBC Hgb Hct MCV MCH MCHC RDW Plt Count MPV Neut % (Auto) Lymph % (Auto) [place] % (Auto) Eos % (Auto) Baso % (Auto) Neut # (Auto) Lymph # (Auto) [place] # (Auto) Eos # (Auto) Baso # (Auto) Immature Gran % Nucleated RBC % Immature Gran # Nucleated RBCs # D-Dimer, Quantitative Sodium Potassium Chloride Carbon Dioxide Anion Gap BUN Creatinine GFR Calculation BUN/Creatinine Ratio Glucose POC Glucose 100 130 H 112 H Hemoglobin A1c Calculated Osmolality Calcium Troponin I Triglycerides Cholesterol LDL Cholesterol VLDL Cholesterol HDL Cholesterol Heart Disease Risk Ratio Free T4 TSH 3rd Generation
--- NOTE | 2017-03-27 11:18 | Hospitalist Progress Note ---
Assessment and Plan - Time spent with patient Time spent with patient: Less than 30 minutes (1) Atrial fibrillation with rapid ventricular response Status: Acute Current Visit: Yes (2) Diabetes mellitus Status: Chronic Assessment and plan: 56-year-old white male with history of CHF, alcoholic cardiomyopathy, A. fib, diabetes, hypertension, tobacco abuse, morbid obesity, and medical noncompliance admitted by the hospitalist service on 03/26/2017 with atypical chest pain and acute on chronic CHF. Patient was also been found to be in A. fib with RVR with rates in the 130s. Dr. De La Rosa will see and examined patient and further recommendations to follow. A. fib with RVR/chest pain--patient was started on Cardizem drip and put on the telemetry unit. Cardiology has seen the patient already this morning. His chest pain is resolved along with his shortness of breath. Cardiology felt this did not require any further workup. Pain was most likely from his A. fib with RVR due to noncompliance with medications. He is being transitioned to p.o. Cardizem and echo has been ordered. Patient was supposed to be on Eliquis but he has not taken this in 3-[address] Josue is his vocational rehabilitation teacher. Medical noncompliance has been an issue. Diabetes--patient's blood sugars are under good control. Most recent blood glucose was 100. Patient is on metformin and sliding scale insulin. Hypertension--patient takes aspirin, and Coreg. His blood pressures are running 105/72. Chronic pain--patient takes [place] 10 p.o. 4 times daily along with a sleeping pill at night. Patient has had some issues with some falls in the middle the night. I did discuss with him the problem with taking his sleeping pills along with narcotics and encouraged him to decrease his narcotics and stop taking the sleeping pills. Recommended melatonin or Benadryl to help with sleep. Acute on chronic CHF--cardiology is following. Patient's x-ray did show some mild pulmonary edema and cardiomegaly without only a mildly elevated BNP of 310. His most recent EF was noted to be 30-35% from June. New echo has been ordered. He is being diuresed gently with IV Lasix. Beta-henny and SAGRARIO inhibitor were continued. Current Visit: Yes Qualifiers: Diabetes mellitus type: type 2 (3) Atypical chest pain Status: Acute Current Visit: Yes (4) Hypertension Status: Chronic Current Visit: Yes (5) Obesity Status: Chronic Current Visit: Yes (6) Alcoholic cardiomyopathy Status: Chronic Current Visit: Yes (7) Tobacco abuse Status: Chronic Current Visit: Yes Hospitalist: Subjective Interval history: Patient is very sleepy in the room. He states his chest pain and shortness of breath resolved. He is asking if he can go home. Exam - Constitutional Vitals: Period Temp Pulse Resp BP Sys/Lopez Pulse Ox Last 24 Hr 97.0 F-98.3 F 64-142 16-20 94-134/50-99 97-100 Exam: 56-year-old morbidly obese white male, no acute distress, sleepy but arousable Chest clear CV irregularly irregular Abdomen obese nontender Extremities with mild edema bilaterally Results - Labs CBC & BMP: 03/27/17 04:31 03/27/17 04:26 Lab Results: I have reviewed the past 24 hour labs - EKG EKG shows: atrial fibrillation
--- NOTE | 2017-03-27 15:53 | ECHO Report ---
Andry Pearson Exam Date: 03/27/2017 11:20 Referring Physician: Technologist: sharon Barrett ARDMS, RVT Age: 56 Ht (in): 71 Wt (lb): 274 Gender: M Exam Location: [facility] Echo Indications: Chest pain, unspecified, Atrial fibrillation, Essential (primary) hypertension, Heart failure, unspecified, Alcoholic cardiomyopathy, Nicotine dependence, cigarettes, uncomplicated, Morbid (severe) obesity due to excess calories, Diabetes BP: 105 / 72 HR: 78 Rhythm: Atrial fibrillation Technical Quality: IMPRESSIONS Technically difficult study 3+ left atrial, and 1+ left ventricular enlargement; probably 2+ right ventricular enlargement. Severely reduced LV systolic function with ejection fraction estimated be 25% with global hypokinesis 1-2+ mitral and tricuspid regurgitation with RVSP 29 mmHg plus RAP Irregular rhythm noted MEASUREMENTS (Male / Female) Normal Values 2D ECHO LV Diastolic Diameter PLAX 5.4 cm 4.2 - 5.9 / 3.9 - 5.3 cm LV Systolic Diameter PLAX 4.9 cm LV Fractional Shortening PLAX 8.2 % IVS Diastolic Thickness 1.0 cm 0.6 - 1.0 / 0.6 - 0.9 cm LVPW Diastolic Thickness 1.0 cm 0.6 - 1.0 / 0.6 - 0.9 cm RV Internal Dim ED PLAX 4.6 cm Aortic Root Diameter 3.5 cm LA Systolic Diameter LX 5.6 cm 3.0 - 4.0 / 2.7 - 3.8 cm DOPPLER TR Peak Velocity 269.0 cm/s TR Peak Gradient 28.9 mmHg FINDINGS Left Ventricle Mildly increased left ventricular cavity size. Normal left ventricular wall thickness. Left ventricular ejection fraction is estimated at Right Ventricle Mildly increased right ventricular size. Right Atrium The right atrium is mildly enlarged. Left Atrium Moderately increased left atrial size. Mitral Valve Morphologically normal mitral valve. Trace mitral valve regurgitation. Aortic Valve Morphologically normal aortic valve without significant sclerosis or stenosis. There is no aortic regurgitation. Tricuspid Valve Morphologically normal tricuspid valve. Trace tricuspid valve regurgitation. Pulmonic Valve Morphologically normal pulmonic valve without significant stenosis. There is no pulmonic regurgitation. Pericardium Normal pericardium without effusion. Aorta Normal ascending aorta dimension. James Irby (Electronically Signed) Final Date: 27 March 2017 15:52
[2017-03-27] MEDS ORDERED: DILTIAZEM CD 240 MG CAPSULE PO SCH (21:00)
[2017-03-27] MEDS ORDERED: DILTIAZEM CD 180 MG CAPSULE PO SCH (21:00)
[2017-03-27] MEDS: METOPROLOL SUCCINATE XL 50 MG TABLET PO SCH (21:07)
[2017-03-27] MEDS: ZALEPLON 5 MG CAPSULE PO SCH (21:08)
[2017-03-28 04:34] LABS: Basophils # 0.1 10*3/uL (0.0-0.2); Basophils % 0.8 % (0.0-0.8); Eosinophils # 0.2 10*3/uL (0.0-0.87); Eosinophils % 2.7 % (0.00-10.9); Hematocrit 46.3 VOL% (42.0-52.0); Hemoglobin 15.3 GM/DL (14.0-18.0); Immature Granulocytes % 0.5 %; Immature Granulocytes Absolute 0.03 #; Lymphocytes # 1.5 10*3/uL (1.4-4.0); Lymphocytes % 22.7 % (21.2-54.2); Mean Corpuscular Hemoglobin 34 PG (27-34); Mean Platelet Volume 11.2 FL (9.6-12.0); Monocytes # 0.5 10*3/uL (0.11-0.8); Monocytes % 7.4 % (1.7-12.7); Neutrophils # 4.2 10*3/uL (1.4-7.4); Neutrophils % 65.9 % (38.7-73.9); Platelet Count 123 T/CUMM (130-400); Red Blood Count 4.54 MC/CUMM (3.8-5.5); Red Cell Distribution Width 14.6 % (9.3-17.3); White Blood Count 6.4 T/CUMM (4-12)
[2017-03-28 05:01] LABS: Calcium 8.6 MG/DL (8.5-10.1); Osmolality,Calculated 280.4 MOS/KG (273-304)
[2017-03-28] MEDS: NITROGLYCERIN 2% OINT 1 INCH/GM PACK TOP SCH ×2 (05:59→12:42)
[2017-03-28] MEDS: ENOXAPARIN 120 MG/0.8 ML SYRINGE SUBCUT SCH (05:59)
[2017-03-28] MEDS: INSULIN REGULAR 100 UNIT/ML SUBCUT SCH ×2 (08:08→12:42)
[2017-03-28] MEDS: LISINOPRIL 5 MG TABLET PO SCH (08:33)
[2017-03-28] MEDS: FOLIC ACID 1 MG TABLET PO SCH (08:33)
[2017-03-28] MEDS: METOPROLOL SUCCINATE XL 50 MG TABLET PO SCH (08:33)
[2017-03-28] MEDS: ASPIRIN 325 MG TABLET PO SCH (08:33)
[2017-03-28] MEDS: POTASSIUM CHLORIDE 10 MEQ TABLET PO SCH (08:33)
[2017-03-28] MEDS: metFORMIN 500 MG TABLET PO SCH (08:33)
[2017-03-28] MEDS: MAGNESIUM CHLORIDE 64 MG TABLET PO SCH (08:33)
[2017-03-28] MEDS: FUROSEMIDE 40 MG/4 ML VIAL IV SCH (08:33)
--- NOTE | 2017-03-28 08:39 | Discharge Summary ---
Hospital Course - Hospital Course Hospital Course: Mr. Pearson is a 56-year-old white male admitted by the hospitalist service on with A. fib with RVR and acute congestive heart failure. Patient was started on IV Cardizem and he was converted to p.o. the next day. His serial enzymes and EKGs were all normal. Cardiology was consulted and they changed his diltiazem to Toprol for rate control as well as his cardiomyopathy and stopped his Coreg.. He did have an echo that showed his EF was worse at 25% down from 30-35% 9 months ago. patient was gently diuresed and he is feeling much better. His labs are good and he is breathing good and he is ready for discharge. Patient has a history of noncompliance is recommended he stay on his prescribed anticoagulation of Eliquis because they do not believe he will be reliable with Coumadin. Patient will need to follow-up with Dr. Josue in his office in 1-2 weeks. Patient's case was coordinated with Dr. Bauer the hospitalist, cardiology, case management, nursing and patient. Case coordination, chart review, and discharge paperwork all took approximately 35 minutes. - Time spent with patient Time with patient DS: Greater than 30 minutes Diagnosis - Discharge Diagnosis (1) Atrial fibrillation with rapid ventricular response Status: Resolved (2) Diabetes mellitus Status: Chronic (3) Atypical chest pain Status: Resolved (4) Hypertension Status: Chronic (5) Obesity Status: Chronic (6) Alcoholic cardiomyopathy Status: Chronic (7) Tobacco abuse Status: Chronic Specialty Discharge - Follow Up or Referrals Follow up with: Oscar Josue MD [Physician] - 1 Week Discharge Plan - Discharge Data Disposition: Disch To Home/Self Care Condition at Discharge: Stable Discharge Diet: heart healthy Activity: resume usual activities as tolerated Contact your physician if you experience:: Shortness of breath - Discharge Medications New Metoprolol Succinate Xl [Toprol Xl] 50 mg PO BID #60 tablet Lisinopril [Prinivil] 5 mg PO DAILY tablet Apixaban [Eliquis] 5 mg PO BID #60 tablet Continue Potassium Chloride 10 meq PO BID Magnesium Chloride [Slow Mag] 64 mg PO BID Zolpidem Tartrate 10 mg PO BEDTIME metFORMIN [Glucophage] 500 mg PO BID Furosemide Tab [Lasix Tab] 40 mg PO DAILY #14 tablet HYDROcodone/ACETAMIN 10-325 [[place] 10-325] 1 tablet PO QID Sulfameth/Trimeth 800-160 Tab [Bactrim DS Tab] 1 tablet PO BID Folic Acid Tab 1 mg PO DAILY Ciprofloxacin HCl [Ciprofloxacin Tab] 500 mg PO Q12H Discontinued Carvedilol 6.25 mg PO BID dilTIAZem HCl [Diltiazem ER] 240 mg PO BID Metoprolol Tartrate 25 mg PO Q12HR #60 tablet - Follow Up or Referral Follow Up: Oscar Josue MD [Physician] - 1 Week your, PCP [Other] - 1 Week - Forms/Instructions Exam - Constitutional Vitals: Period Temp Pulse Resp BP Sys/Lopez Pulse Ox Last 24 Hr 97 F-97.4 F 66-97 15-20 84-127/52-73 96-100 Exam: 56-year-old white male, no acute distress, alert and oriented Chest clear CV regular rate and rhythm Abdomen obese, nontender Extremities with trace edema Discharge Results Procedures and tests throughout hospitalization: Pending Orders 03/29/17 04:00 BMP w/ Mg [Basic Metabolic Panel w/Mg] IN AM CBC [Comp Blood Count Auto Diff] IN AM Labs on day of discharge: Labs from last 24 hours 03/28/17 03/28/17 03/28/17 07:34 03:40 03:40 WBC 6.4 D RBC 4.54 Hgb 15.3 Hct 46.3 MCV 102.0 MCH 34 MCHC 33.0 RDW 14.6 Plt Count 123 L MPV 11.2 Neut % (Auto) 65.9 Lymph % (Auto) 22.7 [place] % (Auto) 7.4 Eos % (Auto) 2.7 Baso % (Auto) 0.8 Neut # (Auto) 4.2 Lymph # (Auto) 1.5 [place] # (Auto) 0.5 Eos # (Auto) 0.2 Baso # (Auto) 0.1 Immature Gran % 0.5 Nucleated RBC % 0.0 Immature Gran # 0.03 Nucleated RBCs # 0.00 Sodium 140 Potassium 4.0 Chloride 103 Carbon Dioxide 26 Anion Gap 15.0 BUN 17 Creatinine 1.00 GFR Calculation 115 BUN/Creatinine Ratio 17.00 Glucose 91 POC Glucose 93 Calculated Osmolality 280.4 Calcium 8.6 Magnesium 2.0 03/27/17 03/27/17 03/27/17 21:08 15:25 11:51 WBC RBC Hgb Hct MCV MCH MCHC RDW Plt Count MPV Neut % (Auto) Lymph % (Auto) [place] % (Auto) Eos % (Auto) Baso % (Auto) Neut # (Auto) Lymph # (Auto) [place] # (Auto) Eos # (Auto) Baso # (Auto) Immature Gran % Nucleated RBC % Immature Gran # Nucleated RBCs # Sodium Potassium Chloride Carbon Dioxide Anion Gap BUN Creatinine GFR Calculation BUN/Creatinine Ratio Glucose POC Glucose 120 H 112 H 130 H Calculated Osmolality Calcium Magnesium DS: Provider Date of admission: 03/26/17 16:37 Primary care physician: Darryl Car MD Attending physician on admission: Ariel Burrows MD Consults: 03/26/17 18:12 Consult to Physician [CONS] Routine Comment: afib rvr, chf Consulting Provider: Cardiology - [facility] Person Notified: Grazyna Date Notified: 03/27/17 Time Notified: 07:50 03/26/17 18:34 Consult to Dietitian [CONS] Routine Reason for Dietitian: Other 03/27/17 10:41 Consult to Case Mgmt/Social Srvs [CONS] Routine Reason for Case Mgmt/Social Srvs: Discharge Planning Consult Comment: MED NON COMPLIANCE. PT STATES IT IS BECAUSE OF COST??? Discharging clinician: BAMBI Devlin Expected date of discharge: 03/28/17
--- NOTE | 2017-03-28 11:30 | Cardiology Progress Note ---
Assessment and Plan (1) Atrial fibrillation with rapid ventricular response Status: Resolved Assessment and plan: March 27, 2017: 1. Probably permanent atrial fibrillation with RVR now with controlled rate 2. Ejection fraction is slightly worse today at 25% down from 30-35% 9 months ago; I suspect this is rate related (tachycardia induced) 3. Agree with diuresis, given he has some orthostasis and dyspnea on exertion from this 4. History of noncompliance; previously prescribed anticoagulation with Eliquis but did not continue it. I do not believe he could take Coumadin reliably. I would defer decision regarding long-term anticoagulation to Dr. Josue who is his primary project account manager. 5. Would change diltiazem to Toprol for rate control as well as treating his cardiomyopathy. 6. Correct electrolytes as needed. March 28, 2017: 1. Mr. Pearson is hemodynamically stable and is atrial fibrillation rate is controlled 2. He is on appropriate cardiac medications; no new recommendations. 3. Follow-up with Dr. Dixon Josue in the next 2 weeks for follow-up. 4. Be discharged from cardiac standpoint Current Visit: Yes (2) Alcoholic cardiomyopathy Status: Chronic Current Visit: Yes (3) Noncompliance with medication regimen Status: Chronic Current Visit: Yes Cardiology - PN: Subj Interval history: Mr. Pearson was sleeping soundly on my entry. He really has no complaints at this point. He appears comfortable. He does not appear to have bathed in some time. He is not having chest discomfort. He is still a bit sleepy. Exam (Progress Note) - Constitutional Vitals: Period Temp Pulse Resp BP Sys/Lopez Pulse Ox Last 24 Hr 97 F-97.4 F 66-97 15-20 84-127/52-73 96-100 General appearance: no acute distress, over weight - Head Head exam: Present: normal inspection, normocephalic, atraumatic - Neck Neck exam: Present: normal inspection - Respiratory Respiratory exam: Present: rhonchi. Absent: stridor, wheezes - Cardiovascular Cardiovascular exam: Absent: diastolic murmur, rubs - GI/Abdominal GI/Abdominal exam: Present: soft. Absent: tenderness - Extremities Exam Extremities exam: Present: edema Result/EKG - Labs CBC & BMP: 03/28/17 03:40 03/28/17 03:40 Labs: Laboratory Results - last 24 hr 03/27/17 03/27/17 03/27/17 11:51 15:25 21:08 WBC RBC Hgb Hct MCV MCH MCHC RDW Plt Count MPV Neut % (Auto) Lymph % (Auto) [place] % (Auto) Eos % (Auto) Baso % (Auto) Neut # (Auto) Lymph # (Auto) [place] # (Auto) Eos # (Auto) Baso # (Auto) Immature Gran % Nucleated RBC % Immature Gran # Nucleated RBCs # Sodium Potassium Chloride Carbon Dioxide Anion Gap BUN Creatinine GFR Calculation BUN/Creatinine Ratio Glucose POC Glucose 130 H 112 H 120 H Calculated Osmolality Calcium Magnesium 03/28/17 03/28/17 03/28/17 03:40 03:40 07:34 WBC 6.4 D RBC 4.54 Hgb 15.3 Hct 46.3 MCV 102.0 MCH 34 MCHC 33.0 RDW 14.6 Plt Count 123 L MPV 11.2 Neut % (Auto) 65.9 Lymph % (Auto) 22.7 [place] % (Auto) 7.4 Eos % (Auto) 2.7 Baso % (Auto) 0.8 Neut # (Auto) 4.2 Lymph # (Auto) 1.5 [place] # (Auto) 0.5 Eos # (Auto) 0.2 Baso # (Auto) 0.1 Immature Gran % 0.5 Nucleated RBC % 0.0 Immature Gran # 0.03 Nucleated RBCs # 0.00 Sodium 140 Potassium 4.0 Chloride 103 Carbon Dioxide 26 Anion Gap 15.0 BUN 17 Creatinine 1.00 GFR Calculation 115 BUN/Creatinine Ratio 17.00 Glucose 91 POC Glucose 93 Calculated Osmolality 280.4 Calcium 8.6 Magnesium 2.0 Specialty Discharge - Follow Up or Referrals Follow up with: your, PCP [Other] - 1 Week Oscar Josue MD [Physician] - 04/11/17 3:00 pm
[2017-03-28 12:36] VITALS: BP 132/58
== END 2017-03-28 13:55 | disposition home or self-care (01) | DRG 308 ==
LOC: EDBD → EDUNIT# → N.ED 13:43 → N.EDINP 16:37 → SUATTDRO 16:37 → N.EDINP 18:05 → N.TELES 18:22
PROVIDERS: ADMIT Internal Medicine Infectious Disease; ATTEND Internal Medicine Nephrology

== ENCOUNTER 2017-08-21 12:17 | Inpatient (IN) ==
[2017-08-21] MEDS ORDERED: FUROSEMIDE 40 MG/4 ML VIAL ONE (12:35)
[2017-08-21] MEDS ORDERED: FUROSEMIDE 20 MG/2 ML VIAL ONE (12:35)
[2017-08-21] MEDS ORDERED: DILTIAZEM 50 MG/10 ML VIAL IV ONE (12:35)
[2017-08-21] MEDS ORDERED: DILTIAZEM 100 MG VIAL.ADD IV ONE (12:36)
[2017-08-21] MEDS ORDERED: SODIUM CHLORIDE 0.9% 100 ML IV ONE (12:36)
[2017-08-21] MEDS ORDERED: FUROSEMIDE 100 MG/10 ML VIAL IV STA (12:40)
[2017-08-21] MEDS ORDERED: MORPHINE 2 MG/1 ML SYRINGE IV STA (12:40)
[2017-08-21] MEDS ORDERED: DILTIAZEM 50 MG/10 ML VIAL IV STA (12:40)
[2017-08-21] MEDS ORDERED: NITROGLYCERIN 2% OINT 1 INCH/GM PACK TOP STA (12:40)
[2017-08-21] MEDS ORDERED: ONDANSETRON 4 MG/2 ML VIAL IV STA (12:40)
[2017-08-21] MEDS ORDERED: ALBUTEROL/IPRATROPIUM 3 ML NEB RESP TX STA (12:40)
[2017-08-21] MEDS ORDERED: MORPHINE 2 MG/1 ML SYRINGE ONE (12:53)
[2017-08-21] MEDS ORDERED: NITROGLYCERIN 2% OINT 1 INCH/GM PACK TOP ONE (12:53)
[2017-08-21] MEDS ORDERED: ONDANSETRON 4 MG/2 ML VIAL ONE (12:53)
[2017-08-21] MEDS ORDERED: DILTIAZEM INJ 100 MG in SODIUM CHLORIDE 0.9% 100 ML IV SCH (13:00)
[2017-08-21 13:59] LABS: Basophils # 0.1 10*3/uL (0.0-0.2); Eosinophils # 0.1 10*3/uL (0.0-0.87); Eosinophils % 1.1 % (0.00-10.9); Hematocrit 47.7 VOL% (42.0-52.0); Hemoglobin 16.7 GM/DL (14.0-18.0); Immature Granulocytes % 0.4 %; Immature Granulocytes Absolute 0.03 #; Lymphocytes # 1.6 10*3/uL (1.4-4.0); Lymphocytes % 21.5 % (21.2-54.2); Mean Corpuscular Hemoglobin 35 PG (27-34); Mean Corpuscular Volume 98.8 FL (87-102); Mean Platelet Volume 10.8 FL (9.6-12.0); Monocytes # 0.6 10*3/uL (0.11-0.8); Monocytes % 8.3 % (1.7-12.7); Neutrophils # 4.9 10*3/uL (1.4-7.4); Neutrophils % 67.7 % (38.7-73.9); Platelet Count 123 T/CUMM (130-400); Red Blood Count 4.83 MC/CUMM (3.8-5.5); Red Cell Distribution Width 14.7 % (9.3-17.3); White Blood Count 7.2 T/CUMM (4-12)
[2017-08-21 14:03] LABS: INR 1.2; PT Patient Result 12.3 SECS
[2017-08-21] MEDS ORDERED: METOPROLOL TARTRATE 5 MG/5 ML VIAL IV ONE (14:04)
[2017-08-21 14:05] LABS: Apearance,Urine CLEAR (Clear); Bilirubin,Urine Negative (Negative); Blood, Urine Negative (Negative); Glucose,Urine (UA) Negative (Negative); Hyaline Casts,Urine 2 /LPF (0-3); Ketones,Urine Negative (Negative); Mucus,Urine Occasional /LPF (Occasional); Nitrite,Urine Negative (Negative); Protein,Urine Negative; Urine Color Straw (Yellow); Urine Specific Gravity 1.004 (1.001-1.035); Urine Urobilinogen < 2.0 EU/DL (0.2-1.0); WBC,Urine 2 /HPF (0-6)
[2017-08-21 14:11] LABS: Albumin 3.7 G/DL (3.4-5.0); Calcium 8.6 MG/DL (8.5-10.1); Osmolality,Calculated 275.8 MOS/KG (273-304); Potassium 4.3 MMOL/L (3.5-5.1); Total Protein 7.3 G/DL (6.4-8.3)
[2017-08-21] MEDS ORDERED: METOPROLOL TARTRATE 5 MG/5 ML VIAL IV STA (14:13)
[2017-08-21 15:00] LABS: Magnesium 1.8 MG/DL (1.8-2.4); Troponin I Only < 0.015 NG/ML (0.00-0.045)
[2017-08-21] MEDS ORDERED: ENOXAPARIN 100 MG/ML SYRINGE SUBCUT STA (15:03)
[2017-08-21] MEDS ORDERED: ENOXAPARIN 120 MG/0.8 ML SYRINGE SUBCUT ONE (15:22)
[2017-08-21] MEDS ORDERED: ACETAMINOPHEN 325 MG TABLET PO PRN (17:45)
[2017-08-21] MEDS ORDERED: DEXTROSE 50% 25 GM/50 ML VIAL IV PRN (17:45)
[2017-08-21] MEDS ORDERED: ONDANSETRON 4 MG/2 ML VIAL IV PRN (17:45)
[2017-08-21] MEDS ORDERED: GLUCAGON 1 MG VIAL IM PRN (17:45)
[2017-08-21] MEDS: METOPROLOL TARTRATE 50 MG TABLET PO SCH ×2 (18:16→22:29)
[2017-08-21] MEDS: PANTOPRAZOLE 40 MG TABLET PO SCH (18:16)
[2017-08-21 19:22] LABS: Magnesium 1.9 MG/DL (1.8-2.4)
[2017-08-21] MEDS: INSULIN LISPRO 100 UNIT/ML SUBCUT SCH (22:28)
[2017-08-22] MEDS: APIXABAN 5 MG TABLET PO SCH ×3 (03:53→21:56)
[2017-08-22] MEDS: FUROSEMIDE 40 MG/4 ML VIAL IV SCH ×2 (03:53→10:14)
[2017-08-22 04:40] LABS: Basophils # 0.1 10*3/uL (0.0-0.2); Eosinophils # 0.1 10*3/uL (0.0-0.87); Eosinophils % 1.5 % (0.00-10.9); Hematocrit 43.6 VOL% (42.0-52.0); Hemoglobin 14.8 GM/DL (14.0-18.0); Immature Granulocytes % 0.3 %; Immature Granulocytes Absolute 0.02 #; Lymphocytes # 1.6 10*3/uL (1.4-4.0); Lymphocytes % 26.4 % (21.2-54.2); Mean Corpuscular HGB Conc 33.9 GM/DL (32-36); Mean Corpuscular Hemoglobin 34 PG (27-34); Mean Corpuscular Volume 101.4 FL (87-102); Mean Platelet Volume 10.3 FL (9.6-12.0); Monocytes # 0.5 10*3/uL (0.11-0.8); Monocytes % 9.1 % (1.7-12.7); Neutrophils # 3.6 10*3/uL (1.4-7.4); Neutrophils % 61.7 % (38.7-73.9); Platelet Count 107 T/CUMM (130-400); Red Cell Distribution Width 14.8 % (9.3-17.3); White Blood Count 5.9 T/CUMM (4-12)
[2017-08-22 05:14] LABS: Calcium 8.5 MG/DL (8.5-10.1)
[2017-08-22 05:15] LABS: Osmolality,Calculated 280.4 MOS/KG (273-304); Potassium 4.2 MMOL/L (3.5-5.1); Risk Ratio 5.95; VLDL CHOLESTEROL 19.2 MG/DL
[2017-08-22] MEDS: PANTOPRAZOLE 40 MG TABLET PO SCH (10:12)
[2017-08-22] MEDS: FOLIC ACID 1 MG TABLET PO SCH (10:12)
[2017-08-22] MEDS: METOPROLOL TARTRATE 50 MG TABLET PO SCH (10:12)
[2017-08-22] MEDS: INSULIN LISPRO 100 UNIT/ML SUBCUT SCH ×4 (10:18→21:57)
[2017-08-22] MEDS ORDERED: METOPROLOL TARTRATE 25 MG TABLET PO SCH (10:30)
[2017-08-22] MEDS ORDERED: DILTIAZEM 60 MG TABLET PO SCH (13:00)
[2017-08-22] MEDS ORDERED: GLUCAGON 1 MG VIAL IM PRN (16:42)
[2017-08-22] MEDS ORDERED: DEXTROSE 50% 25 GM/50 ML VIAL IV PRN (16:42)
[2017-08-22] MEDS ORDERED: APIXABAN 5 MG TABLET PO SCH (21:00)
[2017-08-22] MEDS: DILTIAZEM CD 240 MG CAPSULE PO SCH (21:56)
[2017-08-22] MEDS: metFORMIN 500 MG TABLET PO SCH (21:56)
[2017-08-22] MEDS: MAGNESIUM CHLORIDE 64 MG TABLET PO SCH (21:56)
[2017-08-22] MEDS: METOPROLOL SUCCINATE XL 50 MG TABLET PO SCH (21:56)
[2017-08-22] MEDS: POTASSIUM CHLORIDE 10 MEQ TABLET PO SCH (21:57)
[2017-08-23 05:38] LABS: Basophils # 0.1 10*3/uL (0.0-0.2); Basophils % 0.9 % (0.0-0.8); Eosinophils # 0.2 10*3/uL (0.0-0.87); Eosinophils % 2.3 % (0.00-10.9); Hemoglobin 15.8 GM/DL (14.0-18.0); Immature Granulocytes % 0.3 %; Immature Granulocytes Absolute 0.02 #; Lymphocytes # 1.8 10*3/uL (1.4-4.0); Mean Corpuscular HGB Conc 33.6 GM/DL (32-36); Mean Corpuscular Hemoglobin 34 PG (27-34); Mean Corpuscular Volume 102.4 FL (87-102); Mean Platelet Volume 10.3 FL (9.6-12.0); Monocytes # 0.5 10*3/uL (0.11-0.8); Monocytes % 7.2 % (1.7-12.7); Neutrophils # 4.9 10*3/uL (1.4-7.4); Neutrophils % 65.3 % (38.7-73.9); Platelet Count 132 T/CUMM (130-400); Red Blood Count 4.59 MC/CUMM (3.8-5.5); Red Cell Distribution Width 14.9 % (9.3-17.3); White Blood Count 7.6 T/CUMM (4-12)
[2017-08-23 06:17] LABS: Calcium 8.9 MG/DL (8.5-10.1); Magnesium 2.3 MG/DL (1.8-2.4); Osmolality,Calculated 277.8 MOS/KG (273-304); Potassium 4.1 MMOL/L (3.5-5.1)
[2017-08-23] MEDS: INSULIN LISPRO 100 UNIT/ML SUBCUT SCH ×4 (08:42→21:08)
[2017-08-23] MEDS: FUROSEMIDE 40 MG TABLET PO SCH (08:48)
[2017-08-23] MEDS: METOPROLOL SUCCINATE XL 50 MG TABLET PO SCH ×2 (08:48→21:09)
[2017-08-23] MEDS: LISINOPRIL 5 MG TABLET PO SCH (08:48)
[2017-08-23] MEDS: MAGNESIUM CHLORIDE 64 MG TABLET PO SCH ×2 (08:48→21:07)
[2017-08-23] MEDS: DILTIAZEM CD 240 MG CAPSULE PO SCH ×2 (08:48→21:08)
[2017-08-23] MEDS: metFORMIN 500 MG TABLET PO SCH ×2 (08:49→21:07)
[2017-08-23] MEDS: APIXABAN 5 MG TABLET PO SCH (08:49)
[2017-08-23] MEDS: FOLIC ACID 1 MG TABLET PO SCH (08:49)
[2017-08-23] MEDS: POTASSIUM CHLORIDE 10 MEQ TABLET PO SCH ×2 (08:49→21:08)
[2017-08-23] MEDS: PANTOPRAZOLE 40 MG TABLET PO SCH (08:49)
[2017-08-23] MEDS ORDERED: DIGOXIN 0.25 MG TABLET PO SCH (09:00)
[2017-08-24 02:57] LABS: Basophils # 0.1 10*3/uL (0.0-0.2); Basophils % 0.7 % (0.0-0.8); Eosinophils # 0.1 10*3/uL (0.0-0.87); Eosinophils % 0.9 % (0.00-10.9); Hematocrit 44.9 VOL% (42.0-52.0); Hemoglobin 15.1 GM/DL (14.0-18.0); Immature Granulocytes % 0.3 %; Immature Granulocytes Absolute 0.03 #; Lymphocytes # 1.6 10*3/uL (1.4-4.0); Lymphocytes % 17.6 % (21.2-54.2); Mean Corpuscular HGB Conc 33.6 GM/DL (32-36); Mean Corpuscular Hemoglobin 34 PG (27-34); Mean Corpuscular Volume 101.1 FL (87-102); Mean Platelet Volume 10.8 FL (9.6-12.0); Monocytes # 0.8 10*3/uL (0.11-0.8); Monocytes % 8.6 % (1.7-12.7); Neutrophils # 6.4 10*3/uL (1.4-7.4); Neutrophils % 71.9 % (38.7-73.9); Platelet Count 124 T/CUMM (130-400); Red Blood Count 4.44 MC/CUMM (3.8-5.5); Red Cell Distribution Width 15.2 % (9.3-17.3); White Blood Count 8.9 T/CUMM (4-12)
[2017-08-24 02:58] LABS: Calcium 8.7 MG/DL (8.5-10.1); Magnesium 2.1 MG/DL (1.8-2.4); Osmolality,Calculated 279.8 MOS/KG (273-304); Potassium 4.2 MMOL/L (3.5-5.1)
[2017-08-24 02:59] LABS: Calcium 8.6 MG/DL (8.5-10.1); Osmolality,Calculated 281.7 MOS/KG (273-304); Potassium 4.5 MMOL/L (3.5-5.1)
[2017-08-24] MEDS: INSULIN LISPRO 100 UNIT/ML SUBCUT SCH ×4 (08:17→20:45)
[2017-08-24] MEDS: LISINOPRIL 5 MG TABLET PO SCH (09:13)
[2017-08-24] MEDS: MAGNESIUM CHLORIDE 64 MG TABLET PO SCH ×2 (09:13→20:26)
[2017-08-24] MEDS: POTASSIUM CHLORIDE 10 MEQ TABLET PO SCH ×2 (09:13→20:26)
[2017-08-24] MEDS: FOLIC ACID 1 MG TABLET PO SCH (09:13)
[2017-08-24] MEDS: PANTOPRAZOLE 40 MG TABLET PO SCH (09:13)
[2017-08-24] MEDS: metFORMIN 500 MG TABLET PO SCH ×2 (09:21→20:45)
[2017-08-24] MEDS: FUROSEMIDE 40 MG TABLET PO SCH (09:21)
[2017-08-24] MEDS: DILTIAZEM CD 240 MG CAPSULE PO SCH (09:21)
[2017-08-25 05:41] LABS: Basophils # 0.1 10*3/uL (0.0-0.2); Basophils % 0.8 % (0.0-0.8); Eosinophils # 0.1 10*3/uL (0.0-0.87); Eosinophils % 1.9 % (0.00-10.9); Hematocrit 42.2 VOL% (42.0-52.0); Hemoglobin 14.7 GM/DL (14.0-18.0); Immature Granulocytes Absolute 0.06 #; Lymphocytes # 1.1 10*3/uL (1.4-4.0); Lymphocytes % 19.3 % (21.2-54.2); Mean Corpuscular HGB Conc 34.8 GM/DL (32-36); Mean Corpuscular Hemoglobin 35 PG (27-34); Mean Corpuscular Volume 99.3 FL (87-102); Mean Platelet Volume 10.4 FL (9.6-12.0); Monocytes # 0.6 10*3/uL (0.11-0.8); Monocytes % 9.8 % (1.7-12.7); NRBC # 0.02 10*3/uL; Neutrophils % 67.2 % (38.7-73.9); Platelet Count 108 T/CUMM (130-400); Red Blood Count 4.25 MC/CUMM (3.8-5.5); Red Cell Distribution Width 15.1 % (9.3-17.3); White Blood Count 5.9 T/CUMM (4-12)
[2017-08-25 05:53] LABS: Calcium 8.6 MG/DL (8.5-10.1); Magnesium 2.1 MG/DL (1.8-2.4); Osmolality,Calculated 278.7 MOS/KG (273-304); Potassium 4.1 MMOL/L (3.5-5.1)
[2017-08-25 07:38] VITALS: BP 130/60
[2017-08-25] MEDS: FOLIC ACID 1 MG TABLET PO SCH (09:06)
[2017-08-25] MEDS: DILTIAZEM CD 240 MG CAPSULE PO SCH (09:06)
[2017-08-25] MEDS: PANTOPRAZOLE 40 MG TABLET PO SCH (09:06)
[2017-08-25] MEDS: metFORMIN 500 MG TABLET PO SCH (09:06)
[2017-08-25] MEDS: MAGNESIUM CHLORIDE 64 MG TABLET PO SCH (09:07)
[2017-08-25] MEDS: FUROSEMIDE 40 MG TABLET PO SCH (09:07)
[2017-08-25] MEDS: LISINOPRIL 5 MG TABLET PO SCH (09:07)
[2017-08-25] MEDS: POTASSIUM CHLORIDE 10 MEQ TABLET PO SCH (09:07)
[2017-08-25] MEDS: INSULIN LISPRO 100 UNIT/ML SUBCUT SCH ×2 (09:07→11:58)
== END 2017-08-25 13:51 | disposition home or self-care (01) | DRG 308 ==
LOC: EDUNIT# → EDBD → N.ED 12:17 → SUATTDRO 15:07 → N.EDINP 15:07 → N.TELEN 17:39
PROVIDERS: ADMIT Internal Medicine; ATTEND Internal Medicine

== ENCOUNTER 2018-01-11 10:17 | Inpatient (IN) ==
[2018-01-11] MEDS ORDERED: ASPIRIN 325 MG TABLET PO STA (10:45)
[2018-01-11] MEDS ORDERED: DILTIAZEM 50 MG/10 ML VIAL IV STA (10:45)
[2018-01-11] MEDS ORDERED: SODIUM CHLORIDE 0.9% 100 ML IV ONE (10:50)
[2018-01-11] MEDS ORDERED: DILTIAZEM 100 MG VIAL.ADD IV ONE (10:50)
[2018-01-11 11:04] LABS: Basophils # 0.1 10*3/uL (0.0-0.2); Basophils % 0.9 % (0.0-0.8); Eosinophils # 0.1 10*3/uL (0.0-0.87); Eosinophils % 1.6 % (0.00-10.9); Hematocrit 48.8 VOL% (42.0-52.0); Hemoglobin 16.5 GM/DL (14.0-18.0); Immature Granulocytes % 0.4 %; Immature Granulocytes Absolute 0.03 #; Lymphocytes # 1.5 10*3/uL (1.4-4.0); Lymphocytes % 20.4 % (21.2-54.2); Mean Corpuscular HGB Conc 33.8 GM/DL (32-36); Mean Corpuscular Hemoglobin 33 PG (27-34); Mean Corpuscular Volume 98.2 FL (87-102); Mean Platelet Volume 10.6 FL (9.6-12.0); Monocytes # 0.5 10*3/uL (0.11-0.8); Monocytes % 6.9 % (1.7-12.7); Neutrophils # 5.2 10*3/uL (1.4-7.4); Neutrophils % 69.8 % (38.7-73.9); Platelet Count 152 T/CUMM (130-400); Red Blood Count 4.97 MC/CUMM (3.8-5.5); Red Cell Distribution Width 15.2 % (9.3-17.3); White Blood Count 7.4 T/CUMM (4-12)
[2018-01-11] MEDS: DILTIAZEM INJ 100 MG in SODIUM CHLORIDE 0.9% 100 ML IV SCH ×2 (11:05→19:39)
[2018-01-11] MEDS ORDERED: FUROSEMIDE 40 MG/4 ML VIAL IV STA (11:11)
[2018-01-11 11:15] LABS: INR 1.1
[2018-01-11] MEDS ORDERED: ASPIRIN 325 MG TABLET ONE (11:18)
[2018-01-11] MEDS ORDERED: FUROSEMIDE 40 MG/4 ML VIAL ONE (11:18)
[2018-01-11 11:49] LABS: Albumin 3.8 G/DL (3.4-5.0); Bilirubin,Total 1.7 MG/DL (0.2-1.0); Calcium 8.8 MG/DL (8.5-10.1); Potassium 3.8 MMOL/L (3.5-5.1); Thyroid Stimulating Hormone 2.83 uIU/ml (0.358-3.74); Total Protein 7.6 G/DL (6.4-8.3); Troponin I Only 0.367 NG/ML (0.00-0.045)
[2018-01-11 12:00] LABS: Apearance,Urine CLEAR (Clear); Bilirubin,Urine Negative (Negative); Blood, Urine Negative (Negative); Glucose,Urine (UA) Negative (Negative); Hyaline Casts,Urine 1 /LPF (0-3); Ketones,Urine Negative (Negative); Mucus,Urine Many /LPF (Occasional); Nitrite,Urine Negative (Negative); Protein,Urine 30 MG/DL; RBC,Urine <1 /HPF (0-4); Squamous Epithelial Cell,Urine Occasional /HPF (0-10); Urine Color Yellow (Yellow); Urine Specific Gravity 1.013 (1.001-1.035); WBC,Urine 6 /HPF (0-6)
[2018-01-11] MEDS ORDERED: ENOXAPARIN 100 MG/ML SYRINGE SUBCUT STA (12:32)
[2018-01-11 12:46] LABS: Barbiturates Screen,Urine Negative (Negative); Benzodiazepines Screen,Urine Negative (Negative); Cannabinoid Screen,Urine Negative (Negative); Opiate Screen,Urine Negative (Negative); Phencyclidine Screen,Urine Negative (Negative)
[2018-01-11] MEDS ORDERED: MORPHINE 4 MG/1 ML VIAL IV PRN (13:18)
[2018-01-11] MEDS ORDERED: guaiFENesin/DM ER 600-30 MG TABLET PO PRN (13:18)
[2018-01-11] MEDS ORDERED: NICOTINE 21 MG/24 HR PATCH TRANSDERM PRN (13:18)
[2018-01-11] MEDS ORDERED: diphenhydrAMINE CAP 25 MG CAPSULE PO PRN (13:18)
[2018-01-11] MEDS ORDERED: ONDANSETRON 4 MG/2 ML VIAL IV PRN (13:18)
[2018-01-11] MEDS ORDERED: ACETAMINOPHEN 325 MG TABLET PO PRN ×2 (13:18)
[2018-01-11] MEDS ORDERED: DOCUSATE SODIUM 100 MG CAPSULE PO PRN (13:18)
[2018-01-11] MEDS ORDERED: ZALEPLON 5 MG CAPSULE PO PRN (13:24)
[2018-01-11] MEDS ORDERED: GLUCAGON 1 MG VIAL IM PRN (13:26)
[2018-01-11] MEDS ORDERED: DEXTROSE 50% 25 GM/50 ML VIAL IV PRN (13:26)
[2018-01-11] MEDS ORDERED: APIXABAN 5 MG TABLET PO SCH (13:30)
[2018-01-11] MEDS ORDERED: ENOXAPARIN 120 MG/0.8 ML SYRINGE SUBCUT ONE (13:42)
[2018-01-11] MEDS: INSULIN LISPRO 100 UNIT/ML SUBCUT SCH (16:04)
[2018-01-11] MEDS: PANTOPRAZOLE 40 MG VIAL IV SCH (16:22)
[2018-01-11] MEDS: ASPIRIN EC 81 MG TABLET PO SCH (16:23)
[2018-01-11] MEDS: FUROSEMIDE 40 MG TABLET PO SCH (16:23)
[2018-01-11] MEDS: LISINOPRIL 5 MG TABLET PO SCH (16:23)
[2018-01-11] MEDS: DILTIAZEM CD 240 MG CAPSULE PO SCH ×2 (16:23→21:21)
[2018-01-11] MEDS: MAGNESIUM CHLORIDE 64 MG TABLET PO SCH ×2 (16:23→21:21)
[2018-01-11] MEDS: FOLIC ACID 1 MG TABLET PO SCH (16:23)
[2018-01-11] MEDS: APIXABAN 5 MG TABLET PO SCH ×2 (16:25→21:21)
[2018-01-11] MEDS: POTASSIUM CHLORIDE 10 MEQ TABLET PO SCH ×2 (16:26→21:20)
[2018-01-12 06:15] LABS: Basophils # 0.1 10*3/uL (0.0-0.2); Eosinophils # 0.1 10*3/uL (0.0-0.87); Eosinophils % 1.9 % (0.00-10.9); Hematocrit 48.1 VOL% (42.0-52.0); Hemoglobin 16.1 GM/DL (14.0-18.0); Immature Granulocytes % 0.6 %; Immature Granulocytes Absolute 0.04 #; Lymphocytes # 1.5 10*3/uL (1.4-4.0); Lymphocytes % 22.8 % (21.2-54.2); Mean Corpuscular HGB Conc 33.5 GM/DL (32-36); Mean Corpuscular Hemoglobin 33 PG (27-34); Mean Corpuscular Volume 99.2 FL (87-102); Mean Platelet Volume 10.4 FL (9.6-12.0); Monocytes # 0.5 10*3/uL (0.11-0.8); Monocytes % 7.8 % (1.7-12.7); Neutrophils # 4.4 10*3/uL (1.4-7.4); Neutrophils % 65.9 % (38.7-73.9); Platelet Count 151 T/CUMM (130-400); Red Blood Count 4.85 MC/CUMM (3.8-5.5); Red Cell Distribution Width 15.3 % (9.3-17.3); White Blood Count 6.7 T/CUMM (4-12)
[2018-01-12 06:46] LABS: Albumin 3.6 G/DL (3.4-5.0); Bilirubin,Total 2.3 MG/DL (0.2-1.0); Calcium 8.6 MG/DL (8.5-10.1); Osmolality,Calculated 281.3 MOS/KG (273-304); Potassium 3.7 MMOL/L (3.5-5.1); Risk Ratio 6.94; Total Protein 6.5 G/DL (6.4-8.3)
[2018-01-12] MEDS: INSULIN LISPRO 100 UNIT/ML SUBCUT SCH (09:48)
[2018-01-12] MEDS: FUROSEMIDE 40 MG TABLET PO SCH (09:49)
[2018-01-12] MEDS: DILTIAZEM CD 240 MG CAPSULE PO SCH (09:49)
[2018-01-12] MEDS: MAGNESIUM CHLORIDE 64 MG TABLET PO SCH (09:49)
[2018-01-12] MEDS: LISINOPRIL 5 MG TABLET PO SCH (09:50)
[2018-01-12] MEDS: FOLIC ACID 1 MG TABLET PO SCH (09:50)
[2018-01-12] MEDS: ASPIRIN EC 81 MG TABLET PO SCH (09:50)
[2018-01-12] MEDS: POTASSIUM CHLORIDE 10 MEQ TABLET PO SCH (09:50)
[2018-01-12] MEDS: PANTOPRAZOLE 40 MG VIAL IV SCH (09:50)
[2018-01-12] MEDS: APIXABAN 5 MG TABLET PO SCH (09:50)
[2018-01-12] MEDS: DILTIAZEM INJ 100 MG in SODIUM CHLORIDE 0.9% 100 ML IV SCH (12:34)
[2018-01-12 13:24] VITALS: BP 143/88
== END 2018-01-12 15:30 | disposition home or self-care (01) | DRG 308 ==
LOC: EDUNIT# → EDBD → N.ED 10:17 → N.EDINP 12:33 → N.TELEN 14:30

== ENCOUNTER 2018-02-27 01:43 | Inpatient (IN) ==
[2018-02-27] MEDS ORDERED: DILTIAZEM 50 MG/10 ML VIAL IV STA (02:16)
[2018-02-27 02:23] LABS: Basophils # 0.1 10*3/uL (0.0-0.2); Basophils % 1.2 % (0.0-0.8); Eosinophils # 0.1 10*3/uL (0.0-0.87); Hematocrit 45.8 VOL% (42.0-52.0); Hemoglobin 15.8 GM/DL (14.0-18.0); Immature Granulocytes % 0.5 %; Immature Granulocytes Absolute 0.03 #; Lymphocytes # 2.1 10*3/uL (1.4-4.0); Lymphocytes % 34.7 % (21.2-54.2); Mean Corpuscular HGB Conc 34.5 GM/DL (32-36); Mean Corpuscular Hemoglobin 33 PG (27-34); Mean Corpuscular Volume 94.6 FL (87-102); Mean Platelet Volume 9.8 FL (9.6-12.0); Monocytes # 0.6 10*3/uL (0.11-0.8); Monocytes % 9.8 % (1.7-12.7); Neutrophils # 3.1 10*3/uL (1.4-7.4); Neutrophils % 51.8 % (38.7-73.9); Platelet Count 128 T/CUMM (130-400); Red Blood Count 4.84 MC/CUMM (3.8-5.5); Red Cell Distribution Width 14.2 % (9.3-17.3); White Blood Count 5.9 T/CUMM (4-12)
[2018-02-27 02:28] LABS: INR 1.1; PT Patient Result 11.4 SECS
[2018-02-27] MEDS: DILTIAZEM INJ 100 MG in SODIUM CHLORIDE 0.9% 100 ML IV SCH ×2 (02:40→20:40)
[2018-02-27 02:44] LABS: Alanine Aminotransferase 25 U/L (16-61); Albumin 3.7 G/DL (3.4-5.0); Alkaline Phosphatase 90 U/L (45-117); Aspartate Amino Transferase 26 U/L (0-37); Blood Urea Nitrogen 14 MG/DL (7-18); Calcium 8.2 MG/DL (8.5-10.1); Glucose 119 MG/DL (74-106); Osmolality,Calculated 278.5 MOS/KG (273-304); Potassium 3.5 MMOL/L (3.5-5.1); Sodium 139 MMOL/L (136-145); Total Protein 7.3 G/DL (6.4-8.3); Troponin I Only < 0.015 NG/ML (0.00-0.045)
[2018-02-27 03:47] LABS: Apearance,Urine CLEAR (Clear); Barbiturates Screen,Urine Negative (Negative); Benzodiazepines Screen,Urine Negative (Negative); Bilirubin,Urine Negative (Negative); Blood, Urine Negative (Negative); Cannabinoid Screen,Urine Negative (Negative); Glucose,Urine (UA) Negative (Negative); Ketones,Urine Negative (Negative); Mucus,Urine Occasional /LPF (Occasional); Nitrite,Urine Negative (Negative); Opiate Screen,Urine Negative (Negative); Phencyclidine Screen,Urine Negative (Negative); Protein,Urine Negative; Squamous Epithelial Cell,Urine Occasional /HPF (0-10); Urine Color Yellow (Yellow); Urine Specific Gravity 1.011 (1.001-1.035); WBC,Urine 5 /HPF (0-6)
[2018-02-27] MEDS ORDERED: ACETAMINOPHEN 325 MG TABLET PO PRN (05:11)
[2018-02-27] MEDS ORDERED: GLUCAGON 1 MG VIAL IM PRN (05:11)
[2018-02-27] MEDS ORDERED: PROMETHAZINE 25 MG/1 ML VIAL IM PRN (05:11)
[2018-02-27] MEDS ORDERED: ONDANSETRON 4 MG/2 ML VIAL IV PRN (05:11)
[2018-02-27] MEDS ORDERED: DEXTROSE 50% 25 GM/50 ML VIAL IV PRN (05:11)
[2018-02-27 05:43] LABS: Risk Ratio 5.28
[2018-02-27] MEDS: THIAMINE 100 MG TABLET PO SCH ×2 (05:45→08:47)
[2018-02-27] MEDS: DILTIAZEM CD 120 MG CAPSULE PO SCH ×3 (05:45→21:22)
[2018-02-27] MEDS: SODIUM CHLORIDE 0.9% 1,000 ML IV SCH ×2 (05:45→21:25)
[2018-02-27] MEDS: INSULIN REGULAR 100 UNIT/ML SUBCUT SCH ×4 (08:02→21:48)
[2018-02-27] MEDS: DOCUSATE SODIUM 100 MG CAPSULE PO SCH ×2 (08:45→21:23)
[2018-02-27] MEDS: APIXABAN 5 MG TABLET PO SCH ×2 (08:45→21:23)
[2018-02-27] MEDS: POTASSIUM CHLORIDE 10 MEQ TABLET PO SCH ×2 (08:45→21:23)
[2018-02-27] MEDS: MAGNESIUM CHLORIDE 64 MG TABLET PO SCH ×2 (08:46→21:23)
[2018-02-27] MEDS: FUROSEMIDE 40 MG TABLET PO SCH (08:46)
[2018-02-27] MEDS: PANTOPRAZOLE 40 MG TABLET PO SCH (08:46)
[2018-02-27] MEDS ORDERED: MAGNESIUM SULF RIDER 2 GM in PREMIX 1 EACH IV PRN (08:50)
[2018-02-27] MEDS ORDERED: MAGNESIUM SULF RIDER 4 GM in PREMIX 1 EACH IV PRN (08:50)
[2018-02-27] MEDS: FOLIC ACID 1 MG TABLET PO SCH (09:16)
[2018-02-27] MEDS: MULTIVITAMIN (BEROCCA) TABLET PO SCH (09:16)
[2018-02-27] MEDS: metFORMIN 500 MG TABLET PO SCH ×2 (09:16→21:23)
[2018-02-27] MEDS: LISINOPRIL 5 MG TABLET PO SCH (09:19)
[2018-02-27] MEDS ORDERED: LORazepam 0.5 MG TABLET PO PRN (15:16)
[2018-02-27] MEDS ORDERED: FUROSEMIDE 40 MG/4 ML VIAL IV ONE (15:21)
[2018-02-28 05:01] LABS: Basophils # 0.1 10*3/uL (0.0-0.2); Basophils % 0.8 % (0.0-0.8); Eosinophils # 0.2 10*3/uL (0.0-0.87); Eosinophils % 2.4 % (0.00-10.9); Immature Granulocytes % 0.6 %; Immature Granulocytes Absolute 0.04 #; Lymphocytes # 1.4 10*3/uL (1.4-4.0); Lymphocytes % 22.7 % (21.2-54.2); Mean Corpuscular HGB Conc 34.1 GM/DL (32-36); Mean Corpuscular Hemoglobin 33 PG (27-34); Mean Corpuscular Volume 95.9 FL (87-102); Mean Platelet Volume 10.5 FL (9.6-12.0); Monocytes # 0.7 10*3/uL (0.11-0.8); Monocytes % 10.6 % (1.7-12.7); Neutrophils # 3.9 10*3/uL (1.4-7.4); Neutrophils % 62.9 % (38.7-73.9); Platelet Count 119 T/CUMM (130-400); Red Blood Count 4.59 MC/CUMM (3.8-5.5); Red Cell Distribution Width 14.3 % (9.3-17.3); White Blood Count 6.2 T/CUMM (4-12)
[2018-02-28 05:34] LABS: Calcium 8.5 MG/DL (8.5-10.1); Osmolality,Calculated 280.4 MOS/KG (273-304)
[2018-02-28] MEDS ORDERED: POTASSIUM CHLORIDE 20 MEQ TABLET PO ONE (06:08)
[2018-02-28] MEDS: DILTIAZEM INJ 100 MG in SODIUM CHLORIDE 0.9% 100 ML IV SCH (06:49)
[2018-02-28] MEDS: INSULIN REGULAR 100 UNIT/ML SUBCUT SCH ×2 (07:58→11:47)
[2018-02-28] MEDS: metFORMIN 500 MG TABLET PO SCH (09:00)
[2018-02-28] MEDS: THIAMINE 100 MG TABLET PO SCH (09:00)
[2018-02-28] MEDS: DOCUSATE SODIUM 100 MG CAPSULE PO SCH (09:00)
[2018-02-28] MEDS: MAGNESIUM CHLORIDE 64 MG TABLET PO SCH (09:00)
[2018-02-28] MEDS: MULTIVITAMIN (BEROCCA) TABLET PO SCH (09:00)
[2018-02-28] MEDS: FUROSEMIDE 40 MG TABLET PO SCH (09:01)
[2018-02-28] MEDS: POTASSIUM CHLORIDE 10 MEQ TABLET PO SCH (09:01)
[2018-02-28] MEDS: LISINOPRIL 5 MG TABLET PO SCH (09:01)
[2018-02-28] MEDS: PANTOPRAZOLE 40 MG TABLET PO SCH (09:01)
[2018-02-28] MEDS: FOLIC ACID 1 MG TABLET PO SCH (09:01)
[2018-02-28] MEDS: DILTIAZEM CD 120 MG CAPSULE PO SCH (09:01)
[2018-02-28] MEDS: APIXABAN 5 MG TABLET PO SCH (09:01)
[2018-02-28] MEDS ORDERED: MAGNESIUM SULF RIDER 2 GM in PREMIX 1 EACH IV ONE (09:22)
[2018-02-28] MEDS: POTASSIUM CHLORIDE 20 MEQ TABLET PO SCH ×3 (10:19→14:45)
[2018-02-28 12:15] VITALS: BP 96/67
[2018-02-28] MEDS: SODIUM CHLORIDE 0.9% 1,000 ML IV SCH (14:44)
[2018-03-01] MEDS ORDERED: ASPIRIN EC 325 MG TABLET PO SCH (09:00)
== END 2018-02-28 15:10 | disposition home or self-care (01) | DRG 308 ==
LOC: EDBD → EDUNIT# → N.ED 01:43 → N.EDINP 01:43 → N.TELEN 12:50
PROVIDERS: ADMIT Internal Medicine; ATTEND Internal Medicine

== ENCOUNTER 2018-04-20 06:23 | Observation (INO) ==
[2018-04-20] MEDS ORDERED: NITROGLYCERIN 2% OINT 1 INCH/GM PACK TOP STA (06:37)
[2018-04-20] MEDS ORDERED: DILTIAZEM 50 MG/10 ML VIAL IV STA (06:39)
[2018-04-20 06:53] LABS: Basophils # 0.1 10*3/uL (0.0-0.2); Basophils % 0.7 % (0.0-0.8); Eosinophils # 0.1 10*3/uL (0.0-0.87); Eosinophils % 1.6 % (0.00-10.9); Hematocrit 44.7 VOL% (42.0-52.0); Hemoglobin 14.6 GM/DL (14.0-18.0); Immature Granulocytes % 0.3 %; Immature Granulocytes Absolute 0.02 #; Lymphocytes # 1.3 10*3/uL (1.4-4.0); Lymphocytes % 17.1 % (21.2-54.2); Mean Corpuscular HGB Conc 32.7 GM/DL (32-36); Mean Corpuscular Hemoglobin 32 PG (27-34); Mean Corpuscular Volume 98.5 FL (87-102); Mean Platelet Volume 10.2 FL (9.6-12.0); Monocytes # 0.3 10*3/uL (0.11-0.8); Monocytes % 3.4 % (1.7-12.7); Neutrophils # 5.7 10*3/uL (1.4-7.4); Neutrophils % 76.9 % (38.7-73.9); Platelet Count 155 T/CUMM (130-400); Red Blood Count 4.54 MC/CUMM (3.8-5.5); Red Cell Distribution Width 14.4 % (9.3-17.3); White Blood Count 7.4 T/CUMM (4-12)
[2018-04-20] MEDS: DILTIAZEM INJ 100 MG in SODIUM CHLORIDE 0.9% 100 ML IV SCH ×2 (06:57→18:17)
[2018-04-20 07:19] LABS: Albumin 3.3 G/DL (3.4-5.0); Bilirubin,Total 1.4 MG/DL (0.2-1.0); Calcium 8.4 MG/DL (8.5-10.1); Osmolality,Calculated 282.4 MOS/KG (273-304); Potassium 3.3 MMOL/L (3.5-5.1); Total Protein 7.2 G/DL (6.4-8.3)
[2018-04-20] MEDS ORDERED: POTASSIUM CHLORIDE 20 MEQ TABLET PO ONE (08:37)
[2018-04-20] MEDS ORDERED: POTASSIUM CHLORIDE 20 MEQ TABLET PO PRN (08:38)
[2018-04-20] MEDS ORDERED: chlordiazePOXIDE 25 MG CAPSULE PO PRN (08:42)
[2018-04-20] MEDS ORDERED: DEXTROSE 50% 25 GM/50 ML VIAL IV PRN ×2 (08:44→08:47)
[2018-04-20] MEDS ORDERED: DOCUSATE SODIUM 100 MG CAPSULE PO PRN (08:47)
[2018-04-20] MEDS ORDERED: NICOTINE 21 MG/24 HR PATCH TRANSDERM PRN (08:47)
[2018-04-20] MEDS ORDERED: ACETAMINOPHEN 325 MG TABLET PO PRN (08:47)
[2018-04-20] MEDS ORDERED: ONDANSETRON 4 MG/2 ML VIAL IV PRN (08:47)
[2018-04-20] MEDS ORDERED: GLUCAGON 1 MG VIAL IM PRN (08:47)
[2018-04-20] MEDS: PANTOPRAZOLE 40 MG TABLET PO SCH (09:44)
[2018-04-20] MEDS: MAGNESIUM OXIDE 400 MG TABLET PO SCH (09:44)
[2018-04-20] MEDS: MULTIVITAMIN (BEROCCA) TABLET PO SCH (09:44)
[2018-04-20] MEDS: FOLIC ACID 1 MG TABLET PO SCH (09:44)
[2018-04-20] MEDS: LISINOPRIL 5 MG TABLET PO SCH (09:44)
[2018-04-20] MEDS: DILTIAZEM CD 120 MG CAPSULE PO SCH ×2 (09:44→20:10)
[2018-04-20] MEDS: THIAMINE 100 MG TABLET PO SCH (09:45)
[2018-04-20] MEDS: ENOXAPARIN 40 MG/0.4 ML SYRINGE SUBCUT SCH (09:45)
[2018-04-20] MEDS: POTASSIUM CHLORIDE 10 MEQ TABLET PO SCH ×2 (09:46→20:10)
[2018-04-20] MEDS: FUROSEMIDE 40 MG/4 ML VIAL IV SCH (10:00)
[2018-04-20 10:10] LABS: INR 1.1; PT Patient Result 11.7 SECS; Partial Thromboplastin Time 29.3 SECS (0-40)
[2018-04-20] MEDS: INSULIN LISPRO 100 UNIT/ML SUBCUT SCH ×3 (12:17→22:08)
[2018-04-21 06:15] LABS: Basophils # 0.1 10*3/uL (0.0-0.2); Basophils % 0.9 % (0.0-0.8); Eosinophils # 0.2 10*3/uL (0.0-0.87); Eosinophils % 2.1 % (0.00-10.9); Hematocrit 45.8 VOL% (42.0-52.0); Hemoglobin 14.6 GM/DL (14.0-18.0); Immature Granulocytes % 0.4 %; Immature Granulocytes Absolute 0.03 #; Lymphocytes # 1.7 10*3/uL (1.4-4.0); Lymphocytes % 24.2 % (21.2-54.2); Mean Corpuscular HGB Conc 31.9 GM/DL (32-36); Mean Corpuscular Hemoglobin 32 PG (27-34); Mean Corpuscular Volume 100.4 FL (87-102); Mean Platelet Volume 10.6 FL (9.6-12.0); Monocytes # 0.4 10*3/uL (0.11-0.8); Monocytes % 6.3 % (1.7-12.7); Neutrophils # 4.7 10*3/uL (1.4-7.4); Neutrophils % 66.1 % (38.7-73.9); Platelet Count 159 T/CUMM (130-400); Red Blood Count 4.56 MC/CUMM (3.8-5.5); Red Cell Distribution Width 14.6 % (9.3-17.3)
[2018-04-21 06:43] LABS: Calcium 8.3 MG/DL (8.5-10.1); Osmolality,Calculated 283.1 MOS/KG (273-304); Potassium 3.1 MMOL/L (3.5-5.1)
[2018-04-21] MEDS: INSULIN LISPRO 100 UNIT/ML SUBCUT SCH ×4 (10:17→21:32)
[2018-04-21] MEDS: PANTOPRAZOLE 40 MG TABLET PO SCH (11:11)
[2018-04-21] MEDS: FOLIC ACID 1 MG TABLET PO SCH (11:12)
[2018-04-21] MEDS: MAGNESIUM OXIDE 400 MG TABLET PO SCH (11:12)
[2018-04-21] MEDS: DILTIAZEM CD 120 MG CAPSULE PO SCH ×2 (11:12→21:31)
[2018-04-21] MEDS: LISINOPRIL 5 MG TABLET PO SCH (11:13)
[2018-04-21] MEDS: THIAMINE 100 MG TABLET PO SCH (11:13)
[2018-04-21] MEDS: POTASSIUM CHLORIDE 10 MEQ TABLET PO SCH ×2 (11:13→21:31)
[2018-04-21] MEDS: FUROSEMIDE 40 MG/4 ML VIAL IV SCH (11:14)
[2018-04-21] MEDS: ENOXAPARIN 40 MG/0.4 ML SYRINGE SUBCUT SCH (11:16)
[2018-04-21] MEDS: MULTIVITAMIN (BEROCCA) TABLET PO SCH (11:18)
[2018-04-21] MEDS ORDERED: BENZONATATE 100 MG CAPSULE PO PRN (14:27)
[2018-04-22 06:44] LABS: Calcium 8.4 MG/DL (8.5-10.1); Osmolality,Calculated 277.5 MOS/KG (273-304); Potassium 3.4 MMOL/L (3.5-5.1)
[2018-04-22 07:43] VITALS: BP 97/53
[2018-04-22] MEDS: MULTIVITAMIN (BEROCCA) TABLET PO SCH (10:39)
[2018-04-22] MEDS: MAGNESIUM OXIDE 400 MG TABLET PO SCH (10:39)
[2018-04-22] MEDS: PANTOPRAZOLE 40 MG TABLET PO SCH (10:39)
[2018-04-22] MEDS: POTASSIUM CHLORIDE 10 MEQ TABLET PO SCH (10:40)
[2018-04-22] MEDS: LISINOPRIL 5 MG TABLET PO SCH (10:40)
[2018-04-22] MEDS: THIAMINE 100 MG TABLET PO SCH (10:40)
[2018-04-22] MEDS: FOLIC ACID 1 MG TABLET PO SCH (10:40)
[2018-04-22] MEDS: DILTIAZEM CD 120 MG CAPSULE PO SCH (10:41)
[2018-04-22] MEDS: INSULIN LISPRO 100 UNIT/ML SUBCUT SCH (10:41)
[2018-04-22] MEDS: FUROSEMIDE 40 MG/4 ML VIAL IV SCH (10:42)
[2018-04-22] MEDS: ENOXAPARIN 40 MG/0.4 ML SYRINGE SUBCUT SCH (10:45)
== END 2018-04-22 12:04 | disposition home or self-care (01) ==
LOC: EDUNIT# → N.ED 06:23 → N.EDINP 06:23 → SUATTDRO 07:32 → N.EDINP 08:11 → N.TELEN 08:22
PROVIDERS: ATTEND Internal Medicine Infectious Disease

== ENCOUNTER 2018-05-06 19:01 | Inpatient (IN) ==
[2018-05-06] MEDS ORDERED: DILTIAZEM 25 MG/5 ML VIAL IV ONE (19:22)
[2018-05-06] MEDS ORDERED: DILTIAZEM 50 MG/10 ML VIAL IV STA ×2 (19:23→19:46)
[2018-05-06] MEDS ORDERED: SODIUM CHLORIDE 0.9% 500 ML IV STA (19:23)
[2018-05-06 19:34] LABS: Basophils # 0.1 10*3/uL (0.0-0.2); Basophils % 0.5 % (0.0-0.8); Eosinophils # 0.1 10*3/uL (0.0-0.87); Eosinophils % 0.8 % (0.00-10.9); Hematocrit 50.1 VOL% (42.0-52.0); Hemoglobin 16.8 GM/DL (14.0-18.0); Immature Granulocytes % 0.4 %; Immature Granulocytes Absolute 0.05 #; Lymphocytes # 1.4 10*3/uL (1.4-4.0); Lymphocytes % 12.2 % (21.2-54.2); Mean Corpuscular HGB Conc 33.5 GM/DL (32-36); Mean Corpuscular Hemoglobin 33 PG (27-34); Mean Corpuscular Volume 97.1 FL (87-102); Mean Platelet Volume 10.9 FL (9.6-12.0); Monocytes # 0.8 10*3/uL (0.11-0.8); Monocytes % 6.9 % (1.7-12.7); Neutrophils # 8.8 10*3/uL (1.4-7.4); Neutrophils % 79.2 % (38.7-73.9); Platelet Count 158 T/CUMM (130-400); Red Blood Count 5.16 MC/CUMM (3.8-5.5); Red Cell Distribution Width 14.4 % (9.3-17.3); White Blood Count 11.1 T/CUMM (4-12)
[2018-05-06 19:58] LABS: Alanine Aminotransferase 14 U/L (16-61); Albumin 4.1 G/DL (3.4-5.0); Alkaline Phosphatase 108 U/L (45-117); Aspartate Amino Transferase 26 U/L (0-37); Blood Urea Nitrogen 11 MG/DL (7-18); Calcium 8.9 MG/DL (8.5-10.1); Glucose 100 MG/DL (74-106); Osmolality,Calculated 277.4 MOS/KG (273-304); Potassium 3.1 MMOL/L (3.5-5.1); Sodium 140 MMOL/L (136-145); Total Protein 8.7 G/DL (6.4-8.3)
[2018-05-06] MEDS ORDERED: METOPROLOL TARTRATE 5 MG/5 ML VIAL IV ONE ×2 (20:26→22:10)
[2018-05-06] MEDS ORDERED: FUROSEMIDE 40 MG/4 ML VIAL IV STA (21:28)
[2018-05-06] MEDS ORDERED: ENOXAPARIN 80 MG/0.8 ML SYRINGE SUBCUT SCH (23:20)
[2018-05-06] MEDS ORDERED: GLUCAGON 1 MG VIAL IM PRN (23:20)
[2018-05-06] MEDS ORDERED: DILTIAZEM 50 MG/10 ML VIAL IV ONE (23:20)
[2018-05-06] MEDS ORDERED: ONDANSETRON 4 MG/2 ML VIAL IV PRN (23:20)
[2018-05-06] MEDS ORDERED: MORPHINE 4 MG/1 ML VIAL IV PRN (23:20)
[2018-05-06] MEDS ORDERED: DILTIAZEM INJ 100 MG in SODIUM CHLORIDE 0.9% 100 ML IV SCH (23:20)
[2018-05-06] MEDS ORDERED: PROMETHAZINE 25 MG/1 ML VIAL IM PRN (23:20)
[2018-05-06] MEDS ORDERED: DEXTROSE 50% 25 GM/50 ML VIAL IV PRN (23:20)
[2018-05-07] MEDS: POTASSIUM CHLORIDE 20 MEQ TABLET PO PRN ×4 (00:06→23:35)
[2018-05-07] MEDS: INSULIN REGULAR 100 UNIT/ML SUBCUT SCH ×4 (00:06→17:47)
[2018-05-07] MEDS ORDERED: AMIODARONE INJ 150 MG in DEXTROSE 5% 100 ML IV ONE (00:28)
[2018-05-07] MEDS ORDERED: AMIODARONE INJ 450 MG in DEXTROSE 5% 241 ML IV SCH (00:30)
[2018-05-07 00:43] LABS: Risk Ratio 4.72; Thyroid Stimulating Hormone 1.83 uIU/ml (0.358-3.74); VLDL CHOLESTEROL 16.8 MG/DL
[2018-05-07] MEDS ORDERED: guaiFENesin 200 MG/10 ML UDCUP PO PRN (02:55)
[2018-05-07] MEDS ORDERED: ENOXAPARIN 40 MG/0.4 ML SYRINGE SUBCUT ONE (03:00)
[2018-05-07] MEDS: AMIODARONE INJ 450 MG in DEXTROSE 5% 241 ML IV SCH ×2 (07:34→10:19)
[2018-05-07 08:14] LABS: Calcium 8.3 MG/DL (8.5-10.1); Osmolality,Calculated 276.5 MOS/KG (273-304); Potassium 3.4 MMOL/L (3.5-5.1)
[2018-05-07] MEDS: FUROSEMIDE 40 MG/4 ML VIAL IV SCH ×2 (08:27→15:41)
[2018-05-07] MEDS: DOCUSATE SODIUM 100 MG CAPSULE PO SCH ×2 (08:27→21:31)
[2018-05-07] MEDS: PANTOPRAZOLE 40 MG TABLET PO SCH (08:27)
[2018-05-07] MEDS: FOLIC ACID 1 MG TABLET PO SCH (08:27)
[2018-05-07] MEDS: MAGNESIUM OXIDE 400 MG TABLET PO SCH (08:27)
[2018-05-07] MEDS: ASCORBIC ACID 500 MG TABLET PO SCH ×2 (10:19→21:31)
[2018-05-07] MEDS: DILTIAZEM CD 120 MG CAPSULE PO SCH ×2 (10:19→21:31)
[2018-05-07] MEDS ORDERED: ENOXAPARIN 120 MG/0.8 ML SYRINGE SUBCUT SCH (12:00)
[2018-05-07] MEDS: METOPROLOL SUCCINATE XL 25 MG TABLET PO SCH (12:18)
[2018-05-07] MEDS: LISINOPRIL 5 MG TABLET PO SCH (21:30)
[2018-05-07] MEDS: APIXABAN 5 MG TABLET PO SCH (21:31)
[2018-05-07] MEDS: ZALEPLON 5 MG CAPSULE PO PRN ×2 (21:33→23:36)
[2018-05-08] MEDS: INSULIN REGULAR 100 UNIT/ML SUBCUT SCH ×4 (00:12→18:40)
[2018-05-08 06:46] LABS: Calcium 8.8 MG/DL (8.5-10.1); Osmolality,Calculated 273.8 MOS/KG (273-304); Potassium 3.3 MMOL/L (3.5-5.1)
[2018-05-08 06:55] LABS: Basophils # 0.1 10*3/uL (0.0-0.2); Basophils % 0.8 % (0.0-0.8); Eosinophils # 0.1 10*3/uL (0.0-0.87); Eosinophils % 1.2 % (0.00-10.9); Hematocrit 46.7 VOL% (42.0-52.0); Hemoglobin 15.6 GM/DL (14.0-18.0); Immature Granulocytes % 0.9 %; Immature Granulocytes Absolute 0.09 #; Lymphocytes # 2.4 10*3/uL (1.4-4.0); Lymphocytes % 24.2 % (21.2-54.2); Mean Corpuscular HGB Conc 33.4 GM/DL (32-36); Mean Corpuscular Hemoglobin 33 PG (27-34); Mean Corpuscular Volume 97.3 FL (87-102); Mean Platelet Volume 11.9 FL (9.6-12.0); Monocytes # 0.9 10*3/uL (0.11-0.8); Monocytes % 9.1 % (1.7-12.7); Neutrophils # 6.3 10*3/uL (1.4-7.4); Neutrophils % 63.8 % (38.7-73.9); Platelet Count 129 T/CUMM (130-400); Red Cell Distribution Width 14.6 % (9.3-17.3)
[2018-05-08] MEDS: METOPROLOL SUCCINATE XL 25 MG TABLET PO SCH (08:02)
[2018-05-08] MEDS: PANTOPRAZOLE 40 MG TABLET PO SCH (08:02)
[2018-05-08] MEDS: DILTIAZEM CD 120 MG CAPSULE PO SCH ×2 (08:02→22:21)
[2018-05-08] MEDS: ASCORBIC ACID 500 MG TABLET PO SCH ×2 (08:02→22:22)
[2018-05-08] MEDS: FOLIC ACID 1 MG TABLET PO SCH (08:02)
[2018-05-08] MEDS: APIXABAN 5 MG TABLET PO SCH ×2 (08:03→22:21)
[2018-05-08] MEDS: DOCUSATE SODIUM 100 MG CAPSULE PO SCH ×2 (08:03→22:21)
[2018-05-08] MEDS: MAGNESIUM OXIDE 400 MG TABLET PO SCH ×2 (08:03→22:21)
[2018-05-08] MEDS: FUROSEMIDE 40 MG/4 ML VIAL IV SCH ×2 (08:03→15:15)
[2018-05-08] MEDS ORDERED: POTASSIUM CHLORIDE 20 MEQ TABLET PO SCH ×2 (09:00→21:00)
[2018-05-08] MEDS ORDERED: POTASSIUM CHLORIDE RIDER 20 MEQ in PREMIX 1 EACH IV PRN (12:51)
[2018-05-08] MEDS: POTASSIUM CHLORIDE RIDER 10 MEQ in PREMIX 1 EACH IV PRN ×4 (13:40→17:33)
[2018-05-08] MEDS: LISINOPRIL 5 MG TABLET PO SCH (22:21)
[2018-05-08] MEDS: POTASSIUM CHLORIDE 10 MEQ TABLET PO SCH (22:22)
[2018-05-08] MEDS: ZALEPLON 5 MG CAPSULE PO PRN (22:27)
[2018-05-09] MEDS: INSULIN REGULAR 100 UNIT/ML SUBCUT SCH ×4 (01:34→18:45)
[2018-05-09 05:03] LABS: Basophils % 0.5 % (0.0-0.8); Eosinophils # 0.1 10*3/uL (0.0-0.87); Eosinophils % 1.3 % (0.00-10.9); Hematocrit 42.7 VOL% (42.0-52.0); Hemoglobin 14.2 GM/DL (14.0-18.0); Immature Granulocytes % 0.5 %; Immature Granulocytes Absolute 0.04 #; Lymphocytes # 1.4 10*3/uL (1.4-4.0); Lymphocytes % 17.7 % (21.2-54.2); Mean Corpuscular HGB Conc 33.3 GM/DL (32-36); Mean Corpuscular Hemoglobin 33 PG (27-34); Mean Corpuscular Volume 98.2 FL (87-102); Mean Platelet Volume 10.8 FL (9.6-12.0); Monocytes # 0.6 10*3/uL (0.11-0.8); Monocytes % 7.4 % (1.7-12.7); Neutrophils # 5.6 10*3/uL (1.4-7.4); Neutrophils % 72.6 % (38.7-73.9); Platelet Count 136 T/CUMM (130-400); Red Blood Count 4.35 MC/CUMM (3.8-5.5); Red Cell Distribution Width 14.7 % (9.3-17.3); White Blood Count 7.8 T/CUMM (4-12)
[2018-05-09 05:16] LABS: Calcium 8.3 MG/DL (8.5-10.1); Potassium 4.2 MMOL/L (3.5-5.1)
[2018-05-09] MEDS: FOLIC ACID 1 MG TABLET PO SCH (10:29)
[2018-05-09] MEDS: DILTIAZEM CD 120 MG CAPSULE PO SCH (10:29)
[2018-05-09] MEDS: POTASSIUM CHLORIDE 10 MEQ TABLET PO SCH ×2 (10:29→15:11)
[2018-05-09] MEDS: METOPROLOL SUCCINATE XL 25 MG TABLET PO SCH (10:29)
[2018-05-09] MEDS: DOCUSATE SODIUM 100 MG CAPSULE PO SCH (10:29)
[2018-05-09] MEDS: ASCORBIC ACID 500 MG TABLET PO SCH (10:29)
[2018-05-09] MEDS: APIXABAN 5 MG TABLET PO SCH (10:29)
[2018-05-09] MEDS: FUROSEMIDE 40 MG/4 ML VIAL IV SCH (10:30)
[2018-05-09] MEDS: MAGNESIUM OXIDE 400 MG TABLET PO SCH (10:30)
[2018-05-09] MEDS: PANTOPRAZOLE 40 MG TABLET PO SCH (10:30)
[2018-05-09 11:07] VITALS: BP 101/54
[2018-05-09] MEDS ORDERED: FUROSEMIDE 40 MG TABLET PO SCH (16:00)
== END 2018-05-09 17:51 | disposition home or self-care (01) | DRG 308 ==
LOC: EDBD → EDUNIT# → N.ED 19:01 → N.EDINP 21:21 → SUATTDRO 21:21 → N.TELEN 22:08
PROVIDERS: ADMIT Internal Medicine; ATTEND Internal Medicine

== ENCOUNTER 2018-05-22 00:07 | Observation (INO) ==
[2018-05-22] MEDS ORDERED: ONDANSETRON 4 MG/2 ML VIAL IV STA (00:26)
[2018-05-22] MEDS ORDERED: FUROSEMIDE 100 MG/10 ML VIAL IV STA (00:26)
[2018-05-22] MEDS ORDERED: ALBUTEROL 2.5 MG/3 ML NEB RESP TX SCH (00:30)
[2018-05-22 00:59] LABS: Basophils # 0.1 10*3/uL (0.0-0.2); Basophils % 0.6 % (0.0-0.8); Eosinophils # 0.1 10*3/uL (0.0-0.87); Eosinophils % 0.7 % (0.00-10.9); Hematocrit 42.5 VOL% (42.0-52.0); Hemoglobin 14.3 GM/DL (14.0-18.0); Immature Granulocytes % 0.6 %; Immature Granulocytes Absolute 0.05 #; Lymphocytes # 1.3 10*3/uL (1.4-4.0); Lymphocytes % 14.8 % (21.2-54.2); Mean Corpuscular HGB Conc 33.6 GM/DL (32-36); Mean Corpuscular Hemoglobin 33 PG (27-34); Mean Corpuscular Volume 96.6 FL (87-102); Mean Platelet Volume 10.5 FL (9.6-12.0); Monocytes # 0.5 10*3/uL (0.11-0.8); Neutrophils # 6.6 10*3/uL (1.4-7.4); Neutrophils % 77.3 % (38.7-73.9); Platelet Count 184 T/CUMM (130-400); Red Cell Distribution Width 14.4 % (9.3-17.3); White Blood Count 8.6 T/CUMM (4-12)
[2018-05-22 01:08] LABS: PT Patient Result 10.3 SECS; Partial Thromboplastin Time 26.5 SECS (0-40)
[2018-05-22 01:11] LABS: Apearance,Urine Slightly Hazy (Clear); Bacteria,Urine Occasional /HPF (Few); Bilirubin,Urine Negative (Negative); Blood, Urine Negative (Negative); Glucose,Urine (UA) Negative (Negative); Hyaline Casts,Urine 146 /LPF (0-3); Ketones,Urine Negative (Negative); Mucus,Urine Many /LPF (Occasional); Nitrite,Urine Negative (Negative); Protein,Urine 100 MG/DL; RBC,Urine 2 /HPF (0-4); Squamous Epithelial Cell,Urine Occasional /HPF (0-10); Urine Color Amber (Yellow); Urine Specific Gravity 1.013 (1.001-1.035); WBC,Urine 5 /HPF (0-6)
[2018-05-22 01:19] LABS: Alanine Aminotransferase 17 U/L (16-61); Albumin 3.2 G/DL (3.4-5.0); Alkaline Phosphatase 84 U/L (45-117); Aspartate Amino Transferase 25 U/L (0-37); Blood Urea Nitrogen 14 MG/DL (7-18); Glucose 126 MG/DL (74-106); Osmolality,Calculated 277.7 MOS/KG (273-304); Potassium 3.4 MMOL/L (3.5-5.1); Sodium 138 MMOL/L (136-145); Total Protein 7.1 G/DL (6.4-8.3)
[2018-05-22] MEDS ORDERED: ONDANSETRON 4 MG/2 ML VIAL IV PRN (03:29)
[2018-05-22] MEDS ORDERED: ENOXAPARIN 30 MG/0.3 ML SYRINGE SUBCUT SCH (03:30)
[2018-05-22] MEDS ORDERED: ALBUTEROL/IPRATROPIUM 3 ML NEB RESP TX PRN (04:42)
[2018-05-22 05:23] LABS: Basophils % 0.5 % (0.0-0.8); Eosinophils % 0.5 % (0.00-10.9); Hematocrit 42.3 VOL% (42.0-52.0); Hemoglobin 13.8 GM/DL (14.0-18.0); Immature Granulocytes % 0.5 %; Immature Granulocytes Absolute 0.04 #; Lymphocytes # 1.3 10*3/uL (1.4-4.0); Lymphocytes % 15.3 % (21.2-54.2); Mean Corpuscular HGB Conc 32.6 GM/DL (32-36); Mean Corpuscular Hemoglobin 32 PG (27-34); Mean Corpuscular Volume 96.6 FL (87-102); Mean Platelet Volume 10.7 FL (9.6-12.0); Monocytes # 0.6 10*3/uL (0.11-0.8); Monocytes % 7.1 % (1.7-12.7); Neutrophils # 6.6 10*3/uL (1.4-7.4); Neutrophils % 76.1 % (38.7-73.9); Platelet Count 151 T/CUMM (130-400); Red Blood Count 4.38 MC/CUMM (3.8-5.5); Red Cell Distribution Width 14.5 % (9.3-17.3); White Blood Count 8.6 T/CUMM (4-12)
[2018-05-22 06:07] LABS: Calcium 8.7 MG/DL (8.5-10.1); Osmolality,Calculated 279.4 MOS/KG (273-304); Potassium 3.1 MMOL/L (3.5-5.1); Thyroid Stimulating Hormone 2.66 uIU/ml (0.358-3.74)
[2018-05-22] MEDS ORDERED: POTASSIUM CHLORIDE 20 MEQ TABLET PO ONE (06:16)
[2018-05-22] MEDS: METOPROLOL SUCCINATE XL 25 MG TABLET PO SCH (08:46)
[2018-05-22] MEDS: PANTOPRAZOLE 40 MG TABLET PO SCH (08:46)
[2018-05-22] MEDS: FOLIC ACID 1 MG TABLET PO SCH (08:46)
[2018-05-22] MEDS: APIXABAN 5 MG TABLET PO SCH ×2 (08:47→21:09)
[2018-05-22] MEDS: ASCORBIC ACID 500 MG TABLET PO SCH ×2 (08:47→21:09)
[2018-05-22] MEDS: POTASSIUM CHLORIDE 10 MEQ TABLET PO SCH ×2 (08:47→21:08)
[2018-05-22] MEDS: FUROSEMIDE 40 MG/4 ML VIAL IV SCH (08:47)
[2018-05-22] MEDS: DILTIAZEM CD 120 MG CAPSULE PO SCH ×2 (08:47→21:08)
[2018-05-22] MEDS ORDERED: MAGNESIUM OXIDE 400 MG TABLET PO SCH (09:00)
[2018-05-22] MEDS: POTASSIUM CHLORIDE 20 MEQ TABLET PO PRN ×4 (11:46→16:54)
[2018-05-22] MEDS: SPIRONOLACTONE 25 MG TABLET PO SCH (11:46)
[2018-05-22] MEDS: chlordiazePOXIDE 25 MG CAPSULE PO SCH ×2 (15:20→21:08)
[2018-05-22] MEDS ORDERED: MAGNESIUM SULF RIDER 2 GM in PREMIX 1 EACH IV ONE (15:30)
[2018-05-22] MEDS ORDERED: LISINOPRIL 5 MG TABLET PO SCH (21:00)
[2018-05-22] MEDS: MAGNESIUM OXIDE 400 MG TABLET PO SCH (21:08)
[2018-05-23 04:49] LABS: Basophils # 0.1 10*3/uL (0.0-0.2); Basophils % 0.6 % (0.0-0.8); Eosinophils # 0.1 10*3/uL (0.0-0.87); Hematocrit 44.2 VOL% (42.0-52.0); Hemoglobin 14.5 GM/DL (14.0-18.0); Immature Granulocytes % 0.5 %; Immature Granulocytes Absolute 0.04 #; Lymphocytes # 1.7 10*3/uL (1.4-4.0); Lymphocytes % 18.9 % (21.2-54.2); Mean Corpuscular HGB Conc 32.8 GM/DL (32-36); Mean Corpuscular Hemoglobin 32 PG (27-34); Mean Corpuscular Volume 98.2 FL (87-102); Mean Platelet Volume 10.8 FL (9.6-12.0); Monocytes # 0.7 10*3/uL (0.11-0.8); Monocytes % 7.7 % (1.7-12.7); Neutrophils # 6.2 10*3/uL (1.4-7.4); Neutrophils % 71.3 % (38.7-73.9); Platelet Count 193 T/CUMM (130-400); Red Cell Distribution Width 14.9 % (9.3-17.3); White Blood Count 8.7 T/CUMM (4-12)
[2018-05-23 05:18] LABS: Calcium 8.7 MG/DL (8.5-10.1); Osmolality,Calculated 272.1 MOS/KG (273-304); Potassium 4.5 MMOL/L (3.5-5.1)
[2018-05-23 08:19] VITALS: BP 131/91
[2018-05-23] MEDS: PANTOPRAZOLE 40 MG TABLET PO SCH (09:51)
[2018-05-23] MEDS: DILTIAZEM CD 120 MG CAPSULE PO SCH (09:53)
[2018-05-23] MEDS: SPIRONOLACTONE 25 MG TABLET PO SCH (09:53)
[2018-05-23] MEDS: ASCORBIC ACID 500 MG TABLET PO SCH (09:53)
[2018-05-23] MEDS: POTASSIUM CHLORIDE 10 MEQ TABLET PO SCH (09:53)
[2018-05-23] MEDS: FOLIC ACID 1 MG TABLET PO SCH (09:53)
[2018-05-23] MEDS: METOPROLOL SUCCINATE XL 25 MG TABLET PO SCH (09:53)
[2018-05-23] MEDS: MAGNESIUM OXIDE 400 MG TABLET PO SCH (09:53)
[2018-05-23] MEDS: APIXABAN 5 MG TABLET PO SCH (09:54)
[2018-05-23] MEDS: FUROSEMIDE 40 MG/4 ML VIAL IV SCH (09:54)
[2018-05-23] MEDS: chlordiazePOXIDE 25 MG CAPSULE PO SCH (09:56)
== END 2018-05-23 11:00 | disposition home or self-care (01) ==
LOC: EDUNIT# → EDBD → N.EDINP 00:07 → N.ED 00:07 → SUATTDRO 03:29 → N.TELES 04:13
PROVIDERS: ADMIT Internal Medicine; ATTEND Internal Medicine

== ENCOUNTER 2018-05-30 21:11 | Inpatient (IN) ==
[2018-05-30] MEDS ORDERED: SODIUM CHLORIDE 0.9% 1,000 ML IV STA (21:19)
[2018-05-30] MEDS ORDERED: DILTIAZEM 50 MG/10 ML VIAL IV STA ×2 (21:19→21:29)
[2018-05-30] MEDS: DILTIAZEM INJ 100 MG in SODIUM CHLORIDE 0.9% 100 ML IV SCH (21:43)
[2018-05-30 22:01] LABS: Basophils # 0.1 10*3/uL (0.0-0.2); Basophils % 0.8 % (0.0-0.8); Eosinophils # 0.1 10*3/uL (0.0-0.87); Eosinophils % 0.7 % (0.00-10.9); Hematocrit 43.4 VOL% (42.0-52.0); Immature Granulocytes % 0.7 %; Immature Granulocytes Absolute 0.06 #; Lymphocytes # 1.5 10*3/uL (1.4-4.0); Lymphocytes % 16.4 % (21.2-54.2); Mean Corpuscular HGB Conc 32.3 GM/DL (32-36); Mean Corpuscular Hemoglobin 32 PG (27-34); Mean Platelet Volume 10.7 FL (9.6-12.0); Monocytes # 0.7 10*3/uL (0.11-0.8); Monocytes % 7.5 % (1.7-12.7); Neutrophils # 6.6 10*3/uL (1.4-7.4); Neutrophils % 73.9 % (38.7-73.9); Platelet Count 169 T/CUMM (130-400); Red Blood Count 4.34 MC/CUMM (3.8-5.5); White Blood Count 8.9 T/CUMM (4-12)
[2018-05-30] MEDS ORDERED: FUROSEMIDE 40 MG/4 ML VIAL IV STA (22:01)
[2018-05-30 22:10] LABS: INR 1.4; PT Patient Result 14.7 SECS; Partial Thromboplastin Time 32.3 SECS (0-40)
[2018-05-30 22:29] LABS: Albumin 3.6 G/DL (3.4-5.0); Bilirubin,Total 2.8 MG/DL (0.2-1.0); Calcium 8.9 MG/DL (8.5-10.1); Total Protein 7.2 G/DL (6.4-8.3)
[2018-05-30 22:30] LABS: Osmolality,Calculated 279.7 MOS/KG (273-304); Potassium 3.3 MMOL/L (3.5-5.1); Thyroid Stimulating Hormone 4.15 uIU/ml (0.358-3.74)
[2018-05-31] MEDS ORDERED: ACETAMINOPHEN 325 MG TABLET PO PRN (00:23)
[2018-05-31] MEDS ORDERED: GLUCAGON 1 MG VIAL IM PRN (00:23)
[2018-05-31] MEDS ORDERED: DEXTROSE 50% 25 GM/50 ML VIAL IV PRN (00:23)
[2018-05-31] MEDS ORDERED: ONDANSETRON 4 MG/2 ML VIAL IV PRN (00:23)
[2018-05-31] MEDS: ASCORBIC ACID 500 MG TABLET PO SCH ×3 (01:31→20:28)
[2018-05-31] MEDS: APIXABAN 5 MG TABLET PO SCH ×3 (01:31→20:28)
[2018-05-31] MEDS: LISINOPRIL 5 MG TABLET PO SCH ×2 (01:32→20:34)
[2018-05-31] MEDS: POTASSIUM CHLORIDE 10 MEQ TABLET PO SCH ×3 (01:32→20:28)
[2018-05-31 04:37] LABS: Basophils # 0.1 10*3/uL (0.0-0.2); Basophils % 0.6 % (0.0-0.8); Eosinophils % 0.5 % (0.00-10.9); Hematocrit 45.2 VOL% (42.0-52.0); Hemoglobin 14.1 GM/DL (14.0-18.0); Immature Granulocytes % 0.4 %; Immature Granulocytes Absolute 0.03 #; Lymphocytes # 1.3 10*3/uL (1.4-4.0); Lymphocytes % 15.1 % (21.2-54.2); Mean Corpuscular HGB Conc 31.2 GM/DL (32-36); Mean Corpuscular Hemoglobin 33 PG (27-34); Mean Corpuscular Volume 104.1 FL (87-102); Mean Platelet Volume 10.8 FL (9.6-12.0); Monocytes # 0.9 10*3/uL (0.11-0.8); Monocytes % 10.3 % (1.7-12.7); Neutrophils # 6.1 10*3/uL (1.4-7.4); Neutrophils % 73.1 % (38.7-73.9); Platelet Count 127 T/CUMM (130-400); Red Blood Count 4.34 MC/CUMM (3.8-5.5); Red Cell Distribution Width 15.1 % (9.3-17.3); White Blood Count 8.3 T/CUMM (4-12)
[2018-05-31 06:28] LABS: Albumin 3.4 G/DL (3.4-5.0); Bilirubin,Direct 1.19 MG/DL (0.0-0.20); Bilirubin,Indirect 2.4 MG/DL (0.0-1.0); Bilirubin,Total 3.6 MG/DL (0.2-1.0); Total Protein 6.7 G/DL (6.4-8.3)
[2018-05-31 06:36] LABS: Free T4 (Free Thyroxine) 1.4 NG/DL (0.76-1.46); Osmolality,Calculated 280.5 MOS/KG (273-304); Potassium 3.6 MMOL/L (3.5-5.1)
[2018-05-31] MEDS: INSULIN REGULAR 100 UNIT/ML SUBCUT SCH ×4 (08:32→20:28)
[2018-05-31] MEDS ORDERED: METOPROLOL SUCCINATE XL 25 MG TABLET PO SCH (09:00)
[2018-05-31] MEDS: MAGNESIUM OXIDE 400 MG TABLET PO SCH (09:25)
[2018-05-31] MEDS: FOLIC ACID 1 MG TABLET PO SCH (09:25)
[2018-05-31] MEDS: DILTIAZEM INJ 100 MG in SODIUM CHLORIDE 0.9% 100 ML IV SCH ×2 (09:27→23:13)
[2018-05-31] MEDS: DILTIAZEM CD 120 MG CAPSULE PO SCH ×2 (16:06→20:28)
[2018-06-01 04:02] LABS: Bilirubin,Direct 0.77 MG/DL (0.0-0.20); Bilirubin,Indirect 1.5 MG/DL (0.0-1.0); Bilirubin,Total 2.3 MG/DL (0.2-1.0); Total Protein 6.3 G/DL (6.4-8.3)
[2018-06-01 04:43] LABS: Bilirubin,Total 2.2 MG/DL (0.2-1.0); Calcium 8.6 MG/DL (8.5-10.1); Potassium 3.6 MMOL/L (3.5-5.1); Total Protein 6.4 G/DL (6.4-8.3)
[2018-06-01] MEDS: POLYVINYL ALCOHOL 1.4% OPH SOLN 15 ML BOTTLE BOTH EYES PRN (09:18)
[2018-06-01] MEDS: INSULIN REGULAR 100 UNIT/ML SUBCUT SCH ×4 (09:19→21:23)
[2018-06-01] MEDS: METOPROLOL SUCCINATE XL 50 MG TABLET PO SCH (09:19)
[2018-06-01] MEDS: ASCORBIC ACID 500 MG TABLET PO SCH ×2 (09:19→21:22)
[2018-06-01] MEDS: MAGNESIUM OXIDE 400 MG TABLET PO SCH (09:19)
[2018-06-01] MEDS: APIXABAN 5 MG TABLET PO SCH ×2 (09:19→21:22)
[2018-06-01] MEDS: FOLIC ACID 1 MG TABLET PO SCH (09:19)
[2018-06-01] MEDS: POTASSIUM CHLORIDE 10 MEQ TABLET PO SCH ×2 (09:19→21:23)
[2018-06-01] MEDS: DILTIAZEM CD 120 MG CAPSULE PO SCH ×2 (09:19→21:23)
[2018-06-01] MEDS ORDERED: LEVALBUTEROL 1.25 MG/3 ML NEB RESP TX PRN (16:33)
[2018-06-01] MEDS ORDERED: MAGNESIUM HYDROXIDE SUSP 30 ML UDCUP PO PRN (17:13)
[2018-06-01] MEDS: DOCUSATE SODIUM 100 MG CAPSULE PO PRN (17:28)
[2018-06-01] MEDS: LISINOPRIL 5 MG TABLET PO SCH (21:25)
[2018-06-02 05:11] LABS: Albumin 3.4 G/DL (3.4-5.0); Bilirubin,Total 3.5 MG/DL (0.2-1.0); Calcium 8.6 MG/DL (8.5-10.1); Osmolality,Calculated 280.8 MOS/KG (273-304); Total Protein 6.8 G/DL (6.4-8.3)
[2018-06-02 05:14] LABS: Albumin 3.4 G/DL (3.4-5.0); Bilirubin,Direct 1.48 MG/DL (0.0-0.20); Bilirubin,Indirect 2.3 MG/DL (0.0-1.0); Bilirubin,Total 3.8 MG/DL (0.2-1.0); Total Protein 6.8 G/DL (6.4-8.3)
[2018-06-02] MEDS: INSULIN REGULAR 100 UNIT/ML SUBCUT SCH ×4 (09:15→20:47)
[2018-06-02] MEDS: POTASSIUM CHLORIDE 10 MEQ TABLET PO SCH ×2 (09:16→20:46)
[2018-06-02] MEDS: DILTIAZEM CD 120 MG CAPSULE PO SCH ×2 (09:16→20:46)
[2018-06-02] MEDS: ASCORBIC ACID 500 MG TABLET PO SCH ×2 (09:16→20:46)
[2018-06-02] MEDS: APIXABAN 5 MG TABLET PO SCH ×2 (09:16→20:46)
[2018-06-02] MEDS: DOCUSATE SODIUM 100 MG CAPSULE PO PRN (09:16)
[2018-06-02] MEDS: MAGNESIUM OXIDE 400 MG TABLET PO SCH (09:16)
[2018-06-02] MEDS: FOLIC ACID 1 MG TABLET PO SCH (09:16)
[2018-06-02] MEDS: METOPROLOL SUCCINATE XL 50 MG TABLET PO SCH (09:16)
[2018-06-02] MEDS: POLYVINYL ALCOHOL 1.4% OPH SOLN 15 ML BOTTLE BOTH EYES PRN (09:18)
[2018-06-02] MEDS: metOLazone 2.5 MG TABLET PO SCH (12:23)
[2018-06-02 13:55] LABS: Folate > 24.0 NG/ML (5.4-24.0); Vitamin B12 762 PG/ML (211-911)
[2018-06-02] MEDS ORDERED: FUROSEMIDE 40 MG/4 ML VIAL IV ONE (19:24)
[2018-06-02] MEDS ORDERED: FUROSEMIDE 40 MG/4 ML VIAL IM ONE (20:16)
[2018-06-02] MEDS: FUROSEMIDE 40 MG/4 ML VIAL IV SCH (20:17)
[2018-06-02] MEDS: LISINOPRIL 5 MG TABLET PO SCH (20:47)
[2018-06-03 05:06] LABS: Basophils # 0.1 10*3/uL (0.0-0.2); Basophils % 0.7 % (0.0-0.8); Eosinophils # 0.1 10*3/uL (0.0-0.87); Hematocrit 42.6 VOL% (42.0-52.0); Hemoglobin 14.1 GM/DL (14.0-18.0); Immature Granulocytes % 0.7 %; Immature Granulocytes Absolute 0.06 #; Lymphocytes # 1.2 10*3/uL (1.4-4.0); Lymphocytes % 14.3 % (21.2-54.2); Mean Corpuscular HGB Conc 33.1 GM/DL (32-36); Mean Corpuscular Hemoglobin 32 PG (27-34); Mean Corpuscular Volume 97.3 FL (87-102); Mean Platelet Volume 11.9 FL (9.6-12.0); Monocytes # 0.7 10*3/uL (0.11-0.8); Monocytes % 8.3 % (1.7-12.7); Neutrophils # 6.3 10*3/uL (1.4-7.4); Platelet Count 146 T/CUMM (130-400); Red Blood Count 4.38 MC/CUMM (3.8-5.5); Red Cell Distribution Width 15.5 % (9.3-17.3); White Blood Count 8.4 T/CUMM (4-12)
[2018-06-03 05:23] LABS: Calcium 8.8 MG/DL (8.5-10.1); Osmolality,Calculated 258.2 MOS/KG (273-304); Potassium 3.8 MMOL/L (3.5-5.1)
[2018-06-03] MEDS ORDERED: sitaGLIPtin 25 MG TABLET PO SCH (09:00)
[2018-06-03] MEDS: INSULIN REGULAR 100 UNIT/ML SUBCUT SCH ×4 (09:04→21:34)
[2018-06-03] MEDS: DILTIAZEM CD 120 MG CAPSULE PO SCH ×2 (09:09→21:33)
[2018-06-03] MEDS: CLORAZEPATE 3.75 MG TABLET PO SCH ×2 (09:10→21:33)
[2018-06-03] MEDS: ASCORBIC ACID 500 MG TABLET PO SCH ×2 (09:10→21:31)
[2018-06-03] MEDS: POTASSIUM CHLORIDE 10 MEQ TABLET PO SCH ×2 (09:10→21:32)
[2018-06-03] MEDS: APIXABAN 5 MG TABLET PO SCH ×2 (09:10→21:31)
[2018-06-03] MEDS: metOLazone 2.5 MG TABLET PO SCH (09:11)
[2018-06-03] MEDS: FOLIC ACID 1 MG TABLET PO SCH (09:11)
[2018-06-03] MEDS: METOPROLOL SUCCINATE XL 50 MG TABLET PO SCH (09:12)
[2018-06-03] MEDS: MAGNESIUM OXIDE 400 MG TABLET PO SCH (09:12)
[2018-06-03] MEDS: FUROSEMIDE 40 MG/4 ML VIAL IV SCH ×2 (10:55→16:14)
[2018-06-03] MEDS: LISINOPRIL 5 MG TABLET PO SCH (21:35)
[2018-06-04 06:16] LABS: Basophils # 0.1 10*3/uL (0.0-0.2); Basophils % 0.8 % (0.0-0.8); Eosinophils # 0.1 10*3/uL (0.0-0.87); Eosinophils % 0.7 % (0.00-10.9); Hematocrit 44.1 VOL% (42.0-52.0); Hemoglobin 14.6 GM/DL (14.0-18.0); Immature Granulocytes % 0.8 %; Immature Granulocytes Absolute 0.07 #; Lymphocytes # 1.2 10*3/uL (1.4-4.0); Lymphocytes % 13.3 % (21.2-54.2); Mean Corpuscular HGB Conc 33.1 GM/DL (32-36); Mean Corpuscular Hemoglobin 32 PG (27-34); Mean Corpuscular Volume 96.9 FL (87-102); Mean Platelet Volume 10.4 FL (9.6-12.0); Monocytes # 0.9 10*3/uL (0.11-0.8); Neutrophils # 6.8 10*3/uL (1.4-7.4); Neutrophils % 74.4 % (38.7-73.9); Platelet Count 184 T/CUMM (130-400); Red Blood Count 4.55 MC/CUMM (3.8-5.5); Red Cell Distribution Width 16.4 % (9.3-17.3); White Blood Count 9.2 T/CUMM (4-12)
[2018-06-04 06:46] LABS: Calcium 8.8 MG/DL (8.5-10.1); Osmolality,Calculated 262.9 MOS/KG (273-304)
[2018-06-04 07:02] LABS: Albumin 3.3 G/DL (3.4-5.0); Bilirubin,Total 2.1 MG/DL (0.2-1.0); Calcium 8.9 MG/DL (8.5-10.1); Osmolality,Calculated 262.1 MOS/KG (273-304); Potassium 5.1 MMOL/L (3.5-5.1); Total Protein 6.9 G/DL (6.4-8.3)
[2018-06-04] MEDS ORDERED: SODIUM CHLORIDE 0.9% 1,000 ML IV SCH (08:30)
[2018-06-04] MEDS: ASCORBIC ACID 500 MG TABLET PO SCH ×2 (10:06→21:08)
[2018-06-04] MEDS: MAGNESIUM OXIDE 400 MG TABLET PO SCH (10:06)
[2018-06-04] MEDS: APIXABAN 5 MG TABLET PO SCH ×2 (10:06→21:08)
[2018-06-04] MEDS: INSULIN REGULAR 100 UNIT/ML SUBCUT SCH ×4 (10:07→21:09)
[2018-06-04] MEDS: sitaGLIPtin 25 MG TABLET PO SCH (10:10)
[2018-06-04] MEDS: FUROSEMIDE 40 MG/4 ML VIAL IV SCH ×2 (10:11→16:32)
[2018-06-04] MEDS: metOLazone 2.5 MG TABLET PO SCH (10:11)
[2018-06-04] MEDS: METOPROLOL SUCCINATE XL 50 MG TABLET PO SCH (10:11)
[2018-06-04] MEDS: DILTIAZEM CD 120 MG CAPSULE PO SCH ×2 (10:11→21:09)
[2018-06-04] MEDS: SODIUM BICARB INJ 50 MEQ in SODIUM CHLORIDE 0.9% 1,000 ML IV SCH (12:44)
[2018-06-04] MEDS: POLYVINYL ALCOHOL 1.4% OPH SOLN 15 ML BOTTLE BOTH EYES PRN (12:44)
[2018-06-04] MEDS: LISINOPRIL 5 MG TABLET PO SCH (21:09)
[2018-06-05 03:32] LABS: Basophils # 0.1 10*3/uL (0.0-0.2); Basophils % 0.7 % (0.0-0.8); Eosinophils # 0.1 10*3/uL (0.0-0.87); Eosinophils % 0.9 % (0.00-10.9); Hematocrit 40.7 VOL% (42.0-52.0); Hemoglobin 13.2 GM/DL (14.0-18.0); Immature Granulocytes % 0.9 %; Immature Granulocytes Absolute 0.07 #; Lymphocytes # 1.2 10*3/uL (1.4-4.0); Lymphocytes % 15.5 % (21.2-54.2); Mean Corpuscular HGB Conc 32.4 GM/DL (32-36); Mean Corpuscular Hemoglobin 32 PG (27-34); Mean Corpuscular Volume 99.3 FL (87-102); Mean Platelet Volume 10.9 FL (9.6-12.0); Monocytes # 0.7 10*3/uL (0.11-0.8); Monocytes % 8.8 % (1.7-12.7); Neutrophils # 5.5 10*3/uL (1.4-7.4); Neutrophils % 73.2 % (38.7-73.9); Platelet Count 145 T/CUMM (130-400); Red Cell Distribution Width 16.1 % (9.3-17.3); White Blood Count 7.5 T/CUMM (4-12)
[2018-06-05 03:47] LABS: Calcium 8.3 MG/DL (8.5-10.1); Osmolality,Calculated 262.1 MOS/KG (273-304); Potassium 5.5 MMOL/L (3.5-5.1)
[2018-06-05] MEDS: METOPROLOL SUCCINATE XL 25 MG TABLET PO SCH (08:51)
[2018-06-05] MEDS: ASCORBIC ACID 500 MG TABLET PO SCH ×2 (08:51→20:25)
[2018-06-05] MEDS: metOLazone 2.5 MG TABLET PO SCH (08:51)
[2018-06-05] MEDS: FUROSEMIDE 40 MG/4 ML VIAL IV SCH ×2 (08:51→16:11)
[2018-06-05] MEDS: sitaGLIPtin 25 MG TABLET PO SCH (08:52)
[2018-06-05] MEDS: MAGNESIUM OXIDE 400 MG TABLET PO SCH (08:52)
[2018-06-05] MEDS: DILTIAZEM CD 120 MG CAPSULE PO SCH ×2 (08:52→20:26)
[2018-06-05] MEDS: APIXABAN 5 MG TABLET PO SCH ×2 (08:53→20:25)
[2018-06-05] MEDS: SODIUM POLYSTYRENE SULFATE 15 GM/60 ML BOTTLE PO SCH ×2 (09:03→20:14)
[2018-06-05] MEDS: INSULIN REGULAR 100 UNIT/ML SUBCUT SCH ×3 (09:04→20:14)
[2018-06-05] MEDS ORDERED: metOLazone 2.5 MG TABLET PO SCH (12:25)
[2018-06-05] MEDS: SODIUM BICARB INJ 50 MEQ in SODIUM CHLORIDE 0.9% 1,000 ML IV SCH (15:33)
[2018-06-05] MEDS: LISINOPRIL 5 MG TABLET PO SCH (20:25)
[2018-06-06] MEDS: SODIUM POLYSTYRENE SULFATE 15 GM/60 ML BOTTLE PO SCH ×4 (03:40→21:09)
[2018-06-06 04:59] LABS: Calcium 8.5 MG/DL (8.5-10.1); Osmolality,Calculated 267.5 MOS/KG (273-304); Potassium 5.4 MMOL/L (3.5-5.1)
[2018-06-06] MEDS: SODIUM BICARB INJ 50 MEQ in SODIUM CHLORIDE 0.9% 1,000 ML IV SCH (05:57)
[2018-06-06] MEDS: DILTIAZEM CD 120 MG CAPSULE PO SCH ×2 (08:33→21:09)
[2018-06-06] MEDS: APIXABAN 5 MG TABLET PO SCH ×2 (08:33→21:02)
[2018-06-06] MEDS: sitaGLIPtin 25 MG TABLET PO SCH (08:33)
[2018-06-06] MEDS: METOPROLOL SUCCINATE XL 25 MG TABLET PO SCH (08:33)
[2018-06-06] MEDS: ASCORBIC ACID 500 MG TABLET PO SCH ×2 (08:33→21:01)
[2018-06-06] MEDS: MAGNESIUM OXIDE 400 MG TABLET PO SCH (08:34)
[2018-06-06] MEDS: FUROSEMIDE 40 MG/4 ML VIAL IV SCH (08:34)
[2018-06-06] MEDS: INSULIN REGULAR 100 UNIT/ML SUBCUT SCH ×3 (14:19→21:02)
[2018-06-07] MEDS: SODIUM POLYSTYRENE SULFATE 15 GM/60 ML BOTTLE PO SCH ×2 (04:27→08:37)
[2018-06-07 04:36] LABS: Basophils % 0.6 % (0.0-0.8); Eosinophils # 0.1 10*3/uL (0.0-0.87); Eosinophils % 1.7 % (0.00-10.9); Hematocrit 39.1 VOL% (42.0-52.0); Hemoglobin 12.6 GM/DL (14.0-18.0); Immature Granulocytes % 0.5 %; Immature Granulocytes Absolute 0.03 #; Lymphocytes % 14.5 % (21.2-54.2); Mean Corpuscular HGB Conc 32.2 GM/DL (32-36); Mean Corpuscular Hemoglobin 32 PG (27-34); Mean Corpuscular Volume 98.7 FL (87-102); Mean Platelet Volume 10.8 FL (9.6-12.0); Monocytes # 0.7 10*3/uL (0.11-0.8); Monocytes % 11.2 % (1.7-12.7); Neutrophils # 4.7 10*3/uL (1.4-7.4); Neutrophils % 71.5 % (38.7-73.9); Platelet Count 111 T/CUMM (130-400); Red Blood Count 3.96 MC/CUMM (3.8-5.5); Red Cell Distribution Width 15.4 % (9.3-17.3); White Blood Count 6.6 T/CUMM (4-12)
[2018-06-07 04:52] LABS: Calcium 8.7 MG/DL (8.5-10.1); Potassium 3.5 MMOL/L (3.5-5.1)
[2018-06-07 07:49] VITALS: BP 135/76
[2018-06-07] MEDS: APIXABAN 5 MG TABLET PO SCH (08:34)
[2018-06-07] MEDS: METOPROLOL SUCCINATE XL 25 MG TABLET PO SCH (08:34)
[2018-06-07] MEDS: metOLazone 2.5 MG TABLET PO SCH ×2 (08:35→08:48)
[2018-06-07] MEDS: ASCORBIC ACID 500 MG TABLET PO SCH (08:35)
[2018-06-07] MEDS: MAGNESIUM OXIDE 400 MG TABLET PO SCH (08:36)
[2018-06-07] MEDS: DILTIAZEM CD 120 MG CAPSULE PO SCH (08:36)
[2018-06-07] MEDS: INSULIN REGULAR 100 UNIT/ML SUBCUT SCH ×2 (08:36→12:47)
[2018-06-07] MEDS ORDERED: FUROSEMIDE 40 MG/4 ML VIAL IV SCH (09:00)
[2018-06-07] MEDS ORDERED: METOPROLOL SUCCINATE XL 25 MG TABLET PO ONE (09:26)
[2018-06-08] MEDS ORDERED: METOPROLOL SUCCINATE XL 50 MG TABLET PO SCH (09:00)
[2018-06-08] MEDS ORDERED: DILTIAZEM CD 120 MG CAPSULE PO SCH (09:00)
== END 2018-06-07 14:15 | disposition home health service (06) | DRG 308 ==
LOC: EDUNIT# → EDBD → N.ED 21:11 → SUATTDRO 22:44 → N.EDINP 22:44 → N.TELES 05-31 00:22
PROVIDERS: ADMIT Internal Medicine; ATTEND Internal Medicine

== ENCOUNTER 2018-07-23 06:59 | Inpatient (IN) ==
[2018-07-23] MEDS ORDERED: DILTIAZEM 25 MG/5 ML VIAL IV ONE (07:25)
[2018-07-23] MEDS: DILTIAZEM 50 MG/10 ML VIAL IV STA ×2 (07:26→07:28)
[2018-07-23 07:39] LABS: Basophils # 0.1 10*3/uL (0.0-0.2); Basophils % 0.9 % (0.0-0.8); Eosinophils % 0.5 % (0.00-10.9); Hematocrit 46.2 VOL% (42.0-52.0); Hemoglobin 14.7 GM/DL (14.0-18.0); Immature Granulocytes % 0.2 %; Immature Granulocytes Absolute 0.02 #; Lymphocytes # 1.6 10*3/uL (1.4-4.0); Lymphocytes % 19.5 % (21.2-54.2); Mean Corpuscular HGB Conc 31.8 GM/DL (32-36); Mean Corpuscular Hemoglobin 31 PG (27-34); Mean Corpuscular Volume 97.3 FL (87-102); Mean Platelet Volume 10.9 FL (9.6-12.0); Monocytes # 0.7 10*3/uL (0.11-0.8); Neutrophils # 5.8 10*3/uL (1.4-7.4); Neutrophils % 69.9 % (38.7-73.9); Platelet Count 148 T/CUMM (130-400); Red Blood Count 4.75 MC/CUMM (3.8-5.5); Red Cell Distribution Width 15.4 % (9.3-17.3); White Blood Count 8.2 T/CUMM (4-12)
[2018-07-23] MEDS: DILTIAZEM INJ 100 MG in SODIUM CHLORIDE 0.9% 100 ML IV SCH (07:40)
[2018-07-23] MEDS ORDERED: FUROSEMIDE 40 MG/4 ML VIAL IV STA (07:52)
[2018-07-23 08:07] LABS: Albumin 3.9 G/DL (3.4-5.0); Bilirubin,Total 3.8 MG/DL (0.2-1.0); Calcium 8.7 MG/DL (8.5-10.1); Osmolality,Calculated 277.7 MOS/KG (273-304); Potassium 3.9 MMOL/L (3.5-5.1); Total Protein 7.3 G/DL (6.4-8.3)
[2018-07-23] MEDS ORDERED: MAGNESIUM SULF RIDER 2 GM in PREMIX 1 EACH IV ONE (08:43)
[2018-07-23] MEDS ORDERED: DEXTROSE 50% 25 GM/50 ML VIAL IV PRN (09:29)
[2018-07-23] MEDS ORDERED: ONDANSETRON 4 MG/2 ML VIAL IV PRN (09:29)
[2018-07-23] MEDS ORDERED: FUROSEMIDE 40 MG TABLET PO SCH (09:29)
[2018-07-23] MEDS ORDERED: GLUCAGON 1 MG VIAL IM PRN (09:29)
[2018-07-23] MEDS ORDERED: ACETAMINOPHEN 325 MG TABLET PO PRN (09:29)
[2018-07-23] MEDS ORDERED: ENOXAPARIN 40 MG/0.4 ML SYRINGE SUBCUT SCH (09:30)
[2018-07-23] MEDS: DILTIAZEM CD 120 MG CAPSULE PO SCH ×2 (11:00→20:57)
[2018-07-23] MEDS: PANTOPRAZOLE 40 MG TABLET PO SCH (11:01)
[2018-07-23] MEDS: APIXABAN 5 MG TABLET PO SCH ×2 (11:01→20:56)
[2018-07-23] MEDS: MAGNESIUM OXIDE 400 MG TABLET PO SCH (11:02)
[2018-07-23] MEDS: INSULIN LISPRO 100 UNIT/ML SUBCUT SCH ×3 (13:02→20:58)
[2018-07-23] MEDS: FUROSEMIDE 40 MG/4 ML VIAL IV SCH (16:50)
[2018-07-24] MEDS: DILTIAZEM INJ 100 MG in SODIUM CHLORIDE 0.9% 100 ML IV SCH (06:39)
[2018-07-24] MEDS: INSULIN LISPRO 100 UNIT/ML SUBCUT SCH ×4 (07:33→21:45)
[2018-07-24 07:41] LABS: Basophils % 0.6 % (0.0-0.8); Eosinophils # 0.1 10*3/uL (0.0-0.87); Eosinophils % 1.4 % (0.00-10.9); Hematocrit 40.4 VOL% (42.0-52.0); Hemoglobin 12.8 GM/DL (14.0-18.0); Immature Granulocytes % 0.3 %; Immature Granulocytes Absolute 0.02 #; Lymphocytes # 1.1 10*3/uL (1.4-4.0); Lymphocytes % 16.6 % (21.2-54.2); Mean Corpuscular HGB Conc 31.7 GM/DL (32-36); Mean Corpuscular Hemoglobin 31 PG (27-34); Mean Corpuscular Volume 96.7 FL (87-102); Mean Platelet Volume 10.8 FL (9.6-12.0); Monocytes # 0.6 10*3/uL (0.11-0.8); Neutrophils # 4.6 10*3/uL (1.4-7.4); Neutrophils % 72.1 % (38.7-73.9); Platelet Count 101 T/CUMM (130-400); Red Blood Count 4.18 MC/CUMM (3.8-5.5); Red Cell Distribution Width 15.2 % (9.3-17.3); White Blood Count 6.4 T/CUMM (4-12)
[2018-07-24 08:14] LABS: Calcium 8.5 MG/DL (8.5-10.1); Potassium 3.5 MMOL/L (3.5-5.1); Troponin I 0.044 NG/ML (0.00-0.045)
[2018-07-24 08:23] LABS: Anisocytosis 1+; Platelet Estimate Decreased
[2018-07-24] MEDS: PANTOPRAZOLE 40 MG TABLET PO SCH (09:20)
[2018-07-24] MEDS: DILTIAZEM CD 120 MG CAPSULE PO SCH ×2 (09:21→21:44)
[2018-07-24] MEDS: APIXABAN 5 MG TABLET PO SCH ×2 (09:21→21:45)
[2018-07-24] MEDS: MAGNESIUM OXIDE 400 MG TABLET PO SCH ×2 (09:21→21:44)
[2018-07-24] MEDS: FUROSEMIDE 40 MG/4 ML VIAL IV SCH (09:25)
[2018-07-24] MEDS ORDERED: FUROSEMIDE 80 MG TABLET PO SCH (10:00)
[2018-07-24] MEDS: FOLIC ACID 1 MG TABLET PO SCH (11:35)
[2018-07-24] MEDS: ASCORBIC ACID 500 MG TABLET PO SCH ×2 (11:36→21:44)
[2018-07-24] MEDS: MAGNESIUM HYDROXIDE SUSP 30 ML UDCUP PO PRN (18:33)
[2018-07-25 06:35] LABS: Basophils # 0.1 10*3/uL (0.0-0.2); Basophils % 0.8 % (0.0-0.8); Eosinophils # 0.1 10*3/uL (0.0-0.87); Eosinophils % 1.6 % (0.00-10.9); Hematocrit 40.2 VOL% (42.0-52.0); Hemoglobin 12.9 GM/DL (14.0-18.0); Immature Granulocytes % 0.2 %; Immature Granulocytes Absolute 0.01 #; Lymphocytes # 1.1 10*3/uL (1.4-4.0); Lymphocytes % 16.9 % (21.2-54.2); Mean Corpuscular HGB Conc 32.1 GM/DL (32-36); Mean Corpuscular Hemoglobin 31 PG (27-34); Mean Corpuscular Volume 96.6 FL (87-102); Mean Platelet Volume 11.1 FL (9.6-12.0); Monocytes # 0.6 10*3/uL (0.11-0.8); Monocytes % 9.6 % (1.7-12.7); Neutrophils # 4.4 10*3/uL (1.4-7.4); Neutrophils % 70.9 % (38.7-73.9); Platelet Count 119 T/CUMM (130-400); Red Blood Count 4.16 MC/CUMM (3.8-5.5); White Blood Count 6.2 T/CUMM (4-12)
[2018-07-25 07:03] LABS: Calcium 8.3 MG/DL (8.5-10.1); Osmolality,Calculated 275.7 MOS/KG (273-304); Potassium 2.8 MMOL/L (3.5-5.1)
[2018-07-25] MEDS: INSULIN LISPRO 100 UNIT/ML SUBCUT SCH ×3 (09:24→17:33)
[2018-07-25] MEDS: ASCORBIC ACID 500 MG TABLET PO SCH (09:36)
[2018-07-25] MEDS: MAGNESIUM OXIDE 400 MG TABLET PO SCH (09:36)
[2018-07-25] MEDS: APIXABAN 5 MG TABLET PO SCH (09:36)
[2018-07-25] MEDS: FOLIC ACID 1 MG TABLET PO SCH (09:37)
[2018-07-25] MEDS: PANTOPRAZOLE 40 MG TABLET PO SCH (09:37)
[2018-07-25] MEDS: DILTIAZEM CD 120 MG CAPSULE PO SCH (09:37)
[2018-07-25] MEDS: POTASSIUM CHLORIDE 20 MEQ TABLET PO PRN ×3 (09:39→16:07)
[2018-07-25] MEDS ORDERED: SPIRONOLACTONE 50 MG TABLET PO SCH (13:30)
[2018-07-25] MEDS: MAGNESIUM HYDROXIDE SUSP 30 ML UDCUP PO PRN (16:13)
[2018-07-25 18:53] VITALS: BP 148/70
== END 2018-07-25 19:14 | disposition home health service (06) ==
LOC: EDUNIT# → EDBD → N.ED 06:59 → N.EDINP 08:43 → SUATTDRO 08:43 → N.ICU 09:23 → N.4E 07-24 10:40
PROVIDERS: ADMIT Internal Medicine; ATTEND Internal Medicine

== ENCOUNTER 2018-07-31 23:25 | Inpatient (IN) ==
[2018-07-31] MEDS ORDERED: DILTIAZEM 25 MG/5 ML VIAL IV ONE (23:31)
[2018-07-31] MEDS ORDERED: FUROSEMIDE 40 MG/4 ML VIAL IV STA (23:38)
[2018-07-31] MEDS ORDERED: DILTIAZEM 50 MG/10 ML VIAL IV STA (23:38)
[2018-07-31] MEDS ORDERED: ONDANSETRON 4 MG/2 ML VIAL IV STA (23:38)
[2018-08-01] MEDS: DILTIAZEM INJ 100 MG in SODIUM CHLORIDE 0.9% 100 ML IV SCH ×4 (00:21→23:23)
[2018-08-01 00:41] LABS: Basophils # 0.1 10*3/uL (0.0-0.2); Basophils % 0.9 % (0.0-0.8); Eosinophils # 0.1 10*3/uL (0.0-0.87); Eosinophils % 1.5 % (0.00-10.9); Hematocrit 44.5 VOL% (42.0-52.0); Immature Granulocytes % 0.8 %; Immature Granulocytes Absolute 0.07 #; Lymphocytes % 23.7 % (21.2-54.2); Mean Corpuscular HGB Conc 31.5 GM/DL (32-36); Mean Corpuscular Hemoglobin 31 PG (27-34); Mean Corpuscular Volume 97.6 FL (87-102); Mean Platelet Volume 10.6 FL (9.6-12.0); Monocytes # 0.9 10*3/uL (0.11-0.8); Monocytes % 10.8 % (1.7-12.7); Neutrophils # 5.3 10*3/uL (1.4-7.4); Neutrophils % 62.3 % (38.7-73.9); Platelet Count 166 T/CUMM (130-400); Red Blood Count 4.56 MC/CUMM (3.8-5.5); Red Cell Distribution Width 15.9 % (9.3-17.3); White Blood Count 8.4 T/CUMM (4-12)
[2018-08-01 00:46] LABS: INR 1.3; PT Patient Result 13.4 SECS; Partial Thromboplastin Time 29.9 SECS (0-40)
[2018-08-01 00:56] LABS: Albumin 3.7 G/DL (3.4-5.0); Bilirubin,Total 1.9 MG/DL (0.2-1.0); Calcium 8.8 MG/DL (8.5-10.1); Osmolality,Calculated 276.7 MOS/KG (273-304); Potassium 3.6 MMOL/L (3.5-5.1); Total Protein 7.3 G/DL (6.4-8.3); Troponin I < 0.015 NG/ML (0.00-0.045)
[2018-08-01] MEDS ORDERED: MORPHINE 4 MG/1 ML VIAL IV PRN (01:59)
[2018-08-01] MEDS ORDERED: LACTULOSE 20 GM/30 ML UDCUP PO PRN (01:59)
[2018-08-01] MEDS ORDERED: ZALEPLON 5 MG CAPSULE PO PRN (01:59)
[2018-08-01] MEDS ORDERED: ACETAMINOPHEN 325 MG TABLET PO PRN (01:59)
[2018-08-01] MEDS ORDERED: MAGNESIUM SULF RIDER 4 GM in PREMIX 1 EACH IV PRN (01:59)
[2018-08-01] MEDS ORDERED: diphenhydrAMINE CAP 25 MG CAPSULE PO PRN (01:59)
[2018-08-01] MEDS ORDERED: NICOTINE 21 MG/24 HR PATCH TRANSDERM PRN (01:59)
[2018-08-01] MEDS ORDERED: ONDANSETRON 4 MG/2 ML VIAL IV PRN (01:59)
[2018-08-01] MEDS ORDERED: DILTIAZEM INJ 100 MG in SODIUM CHLORIDE 0.9% 100 ML IV SCH (02:00)
[2018-08-01 02:01] LABS: Barbiturates Screen,Urine Negative (Negative); Benzodiazepines Screen,Urine Negative (Negative); Cannabinoid Screen,Urine Negative (Negative); Opiate Screen,Urine Negative (Negative); Phencyclidine Screen,Urine Negative (Negative)
[2018-08-01 02:07] LABS: Apearance,Urine Slightly Hazy (Clear); Bacteria,Urine Occasional /HPF (Few); Bilirubin,Urine Negative (Negative); Blood, Urine Negative (Negative); Glucose,Urine (UA) Negative (Negative); Hyaline Casts,Urine 68 /LPF (0-3); Ketones,Urine Negative (Negative); Mucus,Urine Many /LPF (Occasional); Nitrite,Urine Negative (Negative); Protein,Urine 100 MG/DL; RBC,Urine 1 /HPF (0-4); Squamous Epithelial Cell,Urine Occasional /HPF (0-10); Urine Color Amber (Yellow); Urine Specific Gravity 1.019 (1.001-1.035); WBC,Urine 34 /HPF (0-6)
[2018-08-01 04:05] LABS: Basophils # 0.1 10*3/uL (0.0-0.2); Eosinophils # 0.1 10*3/uL (0.0-0.87); Hematocrit 45.4 VOL% (42.0-52.0); Hemoglobin 14.1 GM/DL (14.0-18.0); Immature Granulocytes % 0.5 %; Immature Granulocytes Absolute 0.04 #; Lymphocytes # 1.3 10*3/uL (1.4-4.0); Lymphocytes % 16.9 % (21.2-54.2); Mean Corpuscular HGB Conc 31.1 GM/DL (32-36); Mean Corpuscular Hemoglobin 31 PG (27-34); Mean Corpuscular Volume 98.5 FL (87-102); Mean Platelet Volume 11.4 FL (9.6-12.0); Monocytes # 0.8 10*3/uL (0.11-0.8); Monocytes % 9.7 % (1.7-12.7); Neutrophils # 5.6 10*3/uL (1.4-7.4); Neutrophils % 70.9 % (38.7-73.9); Platelet Count 128 T/CUMM (130-400); Red Blood Count 4.61 MC/CUMM (3.8-5.5); Red Cell Distribution Width 15.9 % (9.3-17.3)
[2018-08-01 04:36] LABS: Albumin 3.6 G/DL (3.4-5.0); Bilirubin,Total 2.6 MG/DL (0.2-1.0); Calcium 9.5 MG/DL (8.5-10.1); Osmolality,Calculated 276.7 MOS/KG (273-304); Potassium 3.9 MMOL/L (3.5-5.1); Risk Ratio 4.22; Thyroid Stimulating Hormone 4.7 uIU/ml (0.358-3.74); Total Protein 7.1 G/DL (6.4-8.3); VLDL CHOLESTEROL 19.2 MG/DL
[2018-08-01 04:39] LABS: Polychromasia Few
[2018-08-01 04:40] LABS: Platelet Estimate Decreased
[2018-08-01] MEDS: ALBUTEROL/IPRATROPIUM 3 ML NEB RESP TX SCH ×3 (06:41→19:52)
[2018-08-01] MEDS: PANTOPRAZOLE 40 MG TABLET PO SCH (08:51)
[2018-08-01] MEDS: APIXABAN 5 MG TABLET PO SCH ×2 (08:51→20:47)
[2018-08-01] MEDS: METOPROLOL SUCCINATE XL 25 MG TABLET PO SCH (08:52)
[2018-08-01] MEDS: FUROSEMIDE 40 MG/4 ML VIAL IV SCH ×3 (08:53→22:15)
[2018-08-01] MEDS ORDERED: DEXTROSE 50% 25 GM/50 ML VIAL IV PRN (10:35)
[2018-08-01] MEDS ORDERED: GLUCAGON 1 MG VIAL IM PRN (10:35)
[2018-08-01] MEDS: MAGNESIUM SULF RIDER 2 GM in PREMIX 1 EACH IV PRN (15:43)
[2018-08-01] MEDS: POTASSIUM CHLORIDE 10 MEQ TABLET PO SCH (20:47)
[2018-08-01] MEDS: DILTIAZEM CD 120 MG CAPSULE PO SCH (20:47)
[2018-08-01] MEDS: ASCORBIC ACID 500 MG TABLET PO SCH (20:47)
[2018-08-01] MEDS: LISINOPRIL 10 MG TABLET PO SCH (20:47)
[2018-08-01] MEDS ORDERED: FUROSEMIDE 40 MG/4 ML VIAL IV SCH (22:00)
[2018-08-02] MEDS: ALBUTEROL/IPRATROPIUM 3 ML NEB RESP TX SCH ×4 (00:46→18:48)
[2018-08-02 03:55] LABS: Calcium 8.9 MG/DL (8.5-10.1); Osmolality,Calculated 277.7 MOS/KG (273-304); Potassium 3.9 MMOL/L (3.5-5.1)
[2018-08-02] MEDS: FUROSEMIDE 40 MG/4 ML VIAL IV SCH ×5 (06:03→21:43)
[2018-08-02] MEDS: PANTOPRAZOLE 40 MG TABLET PO SCH (08:54)
[2018-08-02] MEDS: APIXABAN 5 MG TABLET PO SCH ×2 (08:54→21:42)
[2018-08-02] MEDS: METOPROLOL SUCCINATE XL 25 MG TABLET PO SCH (08:55)
[2018-08-02] MEDS: FOLIC ACID 1 MG TABLET PO SCH (08:55)
[2018-08-02] MEDS: metOLazone 2.5 MG TABLET PO SCH (08:55)
[2018-08-02] MEDS: ASCORBIC ACID 500 MG TABLET PO SCH ×2 (08:55→21:41)
[2018-08-02] MEDS: MAGNESIUM OXIDE 400 MG TABLET PO SCH (08:55)
[2018-08-02] MEDS: DILTIAZEM CD 120 MG CAPSULE PO SCH ×2 (08:55→21:41)
[2018-08-02] MEDS: POTASSIUM CHLORIDE 10 MEQ TABLET PO SCH ×2 (08:55→21:42)
[2018-08-02] MEDS: SPIRONOLACTONE 50 MG TABLET PO SCH (08:55)
[2018-08-02] MEDS: LISINOPRIL 10 MG TABLET PO SCH (21:42)
[2018-08-03] MEDS: ALBUTEROL/IPRATROPIUM 3 ML NEB RESP TX SCH ×4 (00:27→19:12)
[2018-08-03] MEDS: DILTIAZEM INJ 100 MG in SODIUM CHLORIDE 0.9% 100 ML IV SCH (01:24)
[2018-08-03 04:10] LABS: Calcium 8.6 MG/DL (8.5-10.1); Osmolality,Calculated 281.5 MOS/KG (273-304); Potassium 3.4 MMOL/L (3.5-5.1)
[2018-08-03] MEDS ORDERED: POTASSIUM CHLORIDE 20 MEQ TABLET PO PRN (04:39)
[2018-08-03] MEDS: FUROSEMIDE 40 MG/4 ML VIAL IV SCH ×4 (04:52→23:22)
[2018-08-03] MEDS: MAGNESIUM SULF RIDER 2 GM in PREMIX 1 EACH IV PRN (07:16)
[2018-08-03] MEDS: SPIRONOLACTONE 50 MG TABLET PO SCH (08:25)
[2018-08-03] MEDS: metOLazone 2.5 MG TABLET PO SCH (08:25)
[2018-08-03] MEDS: PANTOPRAZOLE 40 MG TABLET PO SCH (08:25)
[2018-08-03] MEDS: MAGNESIUM OXIDE 400 MG TABLET PO SCH (08:25)
[2018-08-03] MEDS: DILTIAZEM CD 120 MG CAPSULE PO SCH ×2 (08:25→20:49)
[2018-08-03] MEDS: FOLIC ACID 1 MG TABLET PO SCH (08:26)
[2018-08-03] MEDS: POTASSIUM CHLORIDE 10 MEQ TABLET PO SCH (08:26)
[2018-08-03] MEDS: METOPROLOL SUCCINATE XL 25 MG TABLET PO SCH (08:26)
[2018-08-03] MEDS: ASCORBIC ACID 500 MG TABLET PO SCH ×2 (08:26→20:48)
[2018-08-03] MEDS: APIXABAN 5 MG TABLET PO SCH ×2 (08:26→20:49)
[2018-08-03] MEDS: POTASSIUM CHLORIDE 20 MEQ TABLET PO SCH (20:49)
[2018-08-03] MEDS: LISINOPRIL 10 MG TABLET PO SCH (20:50)
[2018-08-04] MEDS: ALBUTEROL/IPRATROPIUM 3 ML NEB RESP TX SCH ×4 (01:12→19:19)
[2018-08-04] MEDS: FUROSEMIDE 40 MG/4 ML VIAL IV SCH ×4 (04:47→21:45)
[2018-08-04] MEDS: PANTOPRAZOLE 40 MG TABLET PO SCH (09:20)
[2018-08-04] MEDS: MAGNESIUM OXIDE 400 MG TABLET PO SCH (09:20)
[2018-08-04] MEDS: METOPROLOL SUCCINATE XL 25 MG TABLET PO SCH (09:20)
[2018-08-04] MEDS: SPIRONOLACTONE 50 MG TABLET PO SCH (09:21)
[2018-08-04] MEDS: ASCORBIC ACID 500 MG TABLET PO SCH ×2 (09:21→21:45)
[2018-08-04] MEDS: metOLazone 2.5 MG TABLET PO SCH (09:21)
[2018-08-04] MEDS: POTASSIUM CHLORIDE 20 MEQ TABLET PO SCH ×2 (09:21→21:45)
[2018-08-04] MEDS: APIXABAN 5 MG TABLET PO SCH ×2 (09:21→21:45)
[2018-08-04] MEDS: DILTIAZEM CD 120 MG CAPSULE PO SCH ×2 (09:21→21:45)
[2018-08-04] MEDS: FOLIC ACID 1 MG TABLET PO SCH (09:21)
[2018-08-04] MEDS: LISINOPRIL 10 MG TABLET PO SCH (21:45)
[2018-08-04] MEDS: DILTIAZEM INJ 100 MG in SODIUM CHLORIDE 0.9% 100 ML IV SCH (22:38)
[2018-08-05] MEDS: ALBUTEROL/IPRATROPIUM 3 ML NEB RESP TX SCH ×3 (01:06→13:02)
[2018-08-05] MEDS: DILTIAZEM INJ 100 MG in SODIUM CHLORIDE 0.9% 100 ML IV SCH (01:10)
[2018-08-05] MEDS: FUROSEMIDE 40 MG/4 ML VIAL IV SCH (05:05)
[2018-08-05 07:42] LABS: Basophils # 0.1 10*3/uL (0.0-0.2); Eosinophils # 0.1 10*3/uL (0.0-0.87); Hematocrit 38.5 VOL% (42.0-52.0); Hemoglobin 12.2 GM/DL (14.0-18.0); Immature Granulocytes % 0.5 %; Immature Granulocytes Absolute 0.03 #; Lymphocytes # 1.4 10*3/uL (1.4-4.0); Lymphocytes % 22.4 % (21.2-54.2); Mean Corpuscular HGB Conc 31.7 GM/DL (32-36); Mean Corpuscular Hemoglobin 31 PG (27-34); Mean Corpuscular Volume 97.2 FL (87-102); Mean Platelet Volume 10.1 FL (9.6-12.0); Monocytes # 0.7 10*3/uL (0.11-0.8); Monocytes % 12.3 % (1.7-12.7); Neutrophils # 3.7 10*3/uL (1.4-7.4); Neutrophils % 61.8 % (38.7-73.9); Platelet Count 118 T/CUMM (130-400); Red Blood Count 3.96 MC/CUMM (3.8-5.5); Red Cell Distribution Width 15.9 % (9.3-17.3)
[2018-08-05 08:09] LABS: Calcium 8.8 MG/DL (8.5-10.1); Potassium 3.8 MMOL/L (3.5-5.1)
[2018-08-05] MEDS: METOPROLOL SUCCINATE XL 25 MG TABLET PO SCH (09:46)
[2018-08-05] MEDS: PANTOPRAZOLE 40 MG TABLET PO SCH (09:46)
[2018-08-05] MEDS: SPIRONOLACTONE 50 MG TABLET PO SCH (09:46)
[2018-08-05] MEDS: MAGNESIUM OXIDE 400 MG TABLET PO SCH (09:46)
[2018-08-05] MEDS: metOLazone 2.5 MG TABLET PO SCH (09:46)
[2018-08-05] MEDS: DILTIAZEM CD 120 MG CAPSULE PO SCH (09:46)
[2018-08-05] MEDS: APIXABAN 5 MG TABLET PO SCH (09:47)
[2018-08-05] MEDS: ASCORBIC ACID 500 MG TABLET PO SCH (09:47)
[2018-08-05] MEDS: POTASSIUM CHLORIDE 20 MEQ TABLET PO SCH (09:47)
[2018-08-05] MEDS: FOLIC ACID 1 MG TABLET PO SCH (09:47)
[2018-08-05 11:56] VITALS: BP 117/71
== END 2018-08-05 15:03 | disposition home health service (06) | DRG 308 ==
LOC: EDUNIT# → EDBD → N.ED 23:25 → SUATTDRO 08-01 01:59 → N.EDINP 08-01 01:59 → N.TELES 08-01 02:34
PROVIDERS: ATTEND Internal Medicine

== ENCOUNTER 2018-12-13 18:37 | Inpatient (IN) ==
[2018-12-13] MEDS ORDERED: DILTIAZEM 50 MG/10 ML VIAL IV STA (19:19)
[2018-12-13 19:25] LABS: Basophils # 0.1 10*3/uL (0.0-0.2); Eosinophils % 0.4 % (0.00-10.9); Hematocrit 43.6 VOL% (42.0-52.0); Hemoglobin 13.9 GM/DL (14.0-18.0); Immature Granulocytes % 0.4 %; Immature Granulocytes Absolute 0.03 #; Lymphocytes # 0.7 10*3/uL (1.4-4.0); Lymphocytes % 8.8 % (21.2-54.2); Mean Corpuscular HGB Conc 31.9 GM/DL (32-36); Mean Corpuscular Hemoglobin 31 PG (27-34); Mean Corpuscular Volume 97.1 FL (87-102); Mean Platelet Volume 10.7 FL (9.6-12.0); Monocytes # 0.6 10*3/uL (0.11-0.8); Monocytes % 7.7 % (1.7-12.7); Neutrophils % 81.7 % (38.7-73.9); Platelet Count 109 T/CUMM (130-400); Red Blood Count 4.49 MC/CUMM (3.8-5.5); Red Cell Distribution Width 14.4 % (9.3-17.3); White Blood Count 7.4 T/CUMM (4-12)
[2018-12-13] MEDS ORDERED: dilTIAZem Drip 125 MG/125 ML PREMIX IV SCH ×2 (19:30→21:00)
[2018-12-13 19:38] LABS: Albumin 3.9 G/DL (3.4-5.0); Bilirubin,Total 2.7 MG/DL (0.2-1.0); Calcium 8.4 MG/DL (8.5-10.1); Osmolality,Calculated 275.7 MOS/KG (273-304); Potassium 3.8 MMOL/L (3.5-5.1); Total Protein 7.4 G/DL (6.4-8.3)
[2018-12-13 20:20] LABS: Barbiturates Screen,Urine Negative (Negative); Benzodiazepines Screen,Urine Negative (Negative); Cannabinoid Screen,Urine Negative (Negative); Opiate Screen,Urine Negative (Negative); Phencyclidine Screen,Urine Negative (Negative)
[2018-12-13] MEDS ORDERED: FUROSEMIDE 40 MG/4 ML VIAL IV STA (20:32)
[2018-12-13] MEDS ORDERED: MORPHINE 4 MG/1 ML VIAL IV PRN (21:49)
[2018-12-13] MEDS ORDERED: ZALEPLON 5 MG CAPSULE PO PRN (21:49)
[2018-12-13] MEDS ORDERED: ONDANSETRON 4 MG/2 ML VIAL IV PRN (21:49)
[2018-12-13] MEDS ORDERED: DOCUSATE SODIUM 100 MG CAPSULE PO PRN (21:49)
[2018-12-13] MEDS ORDERED: ACETAMINOPHEN 325 MG TABLET PO PRN (21:49)
[2018-12-13] MEDS ORDERED: AMIODARONE INJ 450 MG in DEXTROSE 5% 241 ML IV SCH (23:30)
[2018-12-14 02:07] LABS: Basophils # 0.1 10*3/uL (0.0-0.2); Basophils % 1.2 % (0.0-0.8); Eosinophils % 0.3 % (0.00-10.9); Hematocrit 41.1 VOL% (42.0-52.0); Hemoglobin 13.2 GM/DL (14.0-18.0); Immature Granulocytes % 0.5 %; Immature Granulocytes Absolute 0.04 #; Lymphocytes # 0.6 10*3/uL (1.4-4.0); Lymphocytes % 7.2 % (21.2-54.2); Mean Corpuscular HGB Conc 32.1 GM/DL (32-36); Mean Corpuscular Hemoglobin 31 PG (27-34); Mean Corpuscular Volume 96.5 FL (87-102); Mean Platelet Volume 10.8 FL (9.6-12.0); Monocytes # 0.8 10*3/uL (0.11-0.8); Monocytes % 10.9 % (1.7-12.7); Neutrophils # 6.2 10*3/uL (1.4-7.4); Neutrophils % 79.9 % (38.7-73.9); Platelet Count 107 T/CUMM (130-400); Red Blood Count 4.26 MC/CUMM (3.8-5.5); Red Cell Distribution Width 14.6 % (9.3-17.3); White Blood Count 7.7 T/CUMM (4-12)
[2018-12-14 02:20] LABS: Calcium 8.3 MG/DL (8.5-10.1); Osmolality,Calculated 268.2 MOS/KG (273-304); Potassium 3.6 MMOL/L (3.5-5.1)
[2018-12-14] MEDS ORDERED: FUROSEMIDE 100 MG/10 ML VIAL IV SCH (08:00)
[2018-12-14] MEDS ORDERED: METOPROLOL TARTRATE 25 MG TABLET PO SCH (10:30)
[2018-12-14] MEDS ORDERED: DILTIAZEM CD 120 MG CAPSULE PO SCH (10:30)
[2018-12-14] MEDS ORDERED: MAGNESIUM SULF RIDER 2 GM in PREMIX 1 EACH IV ONE (11:23)
[2018-12-14] MEDS ORDERED: GLUCAGON 1 MG VIAL IM PRN ×3 (11:23→18:20)
[2018-12-14] MEDS ORDERED: DEXTROSE 50% 25 GM/50 ML SYRINGE IV PRN (11:23)
[2018-12-14] MEDS ORDERED: INSULIN LISPRO 100 UNIT/ML SUBCUT SCH (11:30)
[2018-12-14 11:57] LABS: ABG Base Excess -7.7 MMOL/L (-2.5-2.5); ABG HCO3 18.2 MMOL/L (20-26); ABG Oxygen Saturation 92.5 % (95-100); ABG PCO2 26.8 MM HG (35-48); ABG PO2 69.7 MM HG (80-95); ABG TCO2 13.5 MMOL/L (23-27); Allen Test Positive
[2018-12-14] MEDS ORDERED: DOXYCYCLINE HYCLATE INJ 100 MG in SODIUM CHLORIDE 0.9% 100 ML IV SCH (12:00)
[2018-12-14] MEDS ORDERED: cefTRIAXone 1,000 MG in SYRINGE 1 EACH IV SCH ×2 (12:00→15:30)
[2018-12-14] MEDS ORDERED: IPRATROPIUM 500 MCG/2.5 ML NEB RESP TX SCH (13:00)
[2018-12-14 13:17] LABS: ABG Base Excess -6.9 MMOL/L (-2.5-2.5); ABG HCO3 18.9 MMOL/L (20-26); ABG PH 7.486 (7.35-7.45); ABG TCO2 11.8 MMOL/L (23-27); Allen Test Positive; Pt O2 Delivery Device BIPAP
[2018-12-14 13:19] LABS: ABG PCO2 18.5 MM HG (35-48)
[2018-12-14] MEDS ORDERED: LORazepam 2 MG/1 ML VIAL IV ONE (13:26)
[2018-12-14 13:38] LABS: Apearance,Urine CLEAR (Clear); Bilirubin,Urine Negative (Negative); Blood, Urine Moderate mg/dL (Negative); Glucose,Urine (UA) Negative (Negative); Ketones,Urine Negative (Negative); Mucus,Urine Occasional /LPF (Occasional); Nitrite,Urine Negative (Negative); Protein,Urine Negative; RBC,Urine 5 /HPF (0-4); Squamous Epithelial Cell,Urine Occasional /HPF (0-10); Urine Color Yellow (Yellow); Urine Specific Gravity 1.006 (1.001-1.035); Urine Urobilinogen < 2.0 EU/DL (0.2-1.0); WBC,Urine 6 /HPF (0-6)
[2018-12-14] MEDS ORDERED: FUROSEMIDE 40 MG/4 ML VIAL IV ONE (14:08)
[2018-12-14] MEDS ORDERED: DOCUSATE SODIUM 100 MG CAPSULE PO PRN (14:49)
[2018-12-14] MEDS ORDERED: ONDANSETRON 4 MG/2 ML VIAL IV PRN (14:53)
[2018-12-14] MEDS ORDERED: ZALEPLON 5 MG CAPSULE PO PRN (14:53)
[2018-12-14] MEDS ORDERED: MAGNESIUM SULF RIDER 2 GM in PREMIX 1 EACH IV PRN (14:56)
[2018-12-14] MEDS ORDERED: dilTIAZem Drip 125 MG/125 ML PREMIX IV SCH (15:00)
[2018-12-14] MEDS: DOXYCYCLINE HYCLATE INJ 100 MG in SODIUM CHLORIDE 0.9% 100 ML IV SCH (15:52)
[2018-12-14] MEDS: AMIODARONE INJ 450 MG in DEXTROSE 5% 241 ML IV SCH (15:52)
[2018-12-14] MEDS ORDERED: FUROSEMIDE 40 MG/4 ML VIAL IV SCH (16:00)
[2018-12-14] MEDS: methylPREDNISolone SOD SUC 40 MG/1 ML VIAL IV SCH (16:05)
[2018-12-14] MEDS: DEXTROSE 50% 25 GM/50 ML SYRINGE IV PRN ×3 (17:10→22:14)
[2018-12-14] MEDS ORDERED: DEXTROSE 50% 25 GM/50 ML VIAL IV PRN (18:20)
[2018-12-14] MEDS ORDERED: SODIUM CHLORIDE 0.9% 500 ML IV ONE (19:11)
[2018-12-14] MEDS ORDERED: DEXTROSE 5% NACL 0.9% 1,000 ML IV SCH (19:30)
[2018-12-14] MEDS: IPRATROPIUM 500 MCG/2.5 ML NEB RESP TX SCH (20:04)
[2018-12-14] MEDS: THIAMINE 200 MG/2 ML VIAL IV SCH (21:04)
[2018-12-14] MEDS: PHENYLEPHRINE DRIP 40 MG/250 ML PREMIX IV PRN (22:42)
[2018-12-15] MEDS: methylPREDNISolone SOD SUC 40 MG/1 ML VIAL IV SCH ×2 (00:02→08:57)
[2018-12-15] MEDS: IPRATROPIUM 500 MCG/2.5 ML NEB RESP TX SCH ×4 (01:08→19:32)
[2018-12-15] MEDS: PHENYLEPHRINE DRIP 40 MG/250 ML PREMIX IV PRN ×6 (01:52→18:13)
[2018-12-15] MEDS: DOXYCYCLINE HYCLATE INJ 100 MG in SODIUM CHLORIDE 0.9% 100 ML IV SCH ×2 (05:12→16:17)
[2018-12-15 05:52] LABS: Calcium 8.2 MG/DL (8.5-10.1); Osmolality,Calculated 269.2 MOS/KG (273-304); Potassium 5.5 MMOL/L (3.5-5.1)
[2018-12-15 06:01] LABS: Basophils % 0.2 % (0.0-0.8); Eosinophils % 0.1 % (0.00-10.9); Immature Granulocytes Absolute 0.29 #; Lymphocytes # 0.7 10*3/uL (1.4-4.0); Mean Corpuscular Hemoglobin 31 PG (27-34); Mean Corpuscular Volume 107.8 FL (87-102); Monocytes # 0.9 10*3/uL (0.11-0.8); Monocytes % 6.3 % (1.7-12.7); NRBC # 0.12 10*3/uL; Neutrophils # 12.8 10*3/uL (1.4-7.4); Neutrophils % 86.4 % (38.7-73.9); Platelet Count 89 T/CUMM (130-400); Red Cell Distribution Width 15.4 % (9.3-17.3); White Blood Count 14.8 T/CUMM (4-12)
[2018-12-15 06:03] LABS: Hematocrit 49.3 VOL% (42.0-52.0)
[2018-12-15 06:04] LABS: Hemoglobin 14.4 GM/DL (14.0-18.0)
[2018-12-15 06:10] LABS: Band Neutrophils 11 % (0-10); Lymphocytes 6 % (20-55); Macrocytosis Slight; Nucleated Red Blood Cells 1 (0-5); Segmented Neutrophils 79 % (50-85); Total Cells Counted 100
[2018-12-15 06:11] LABS: Platelet Estimate Decreased
[2018-12-15] MEDS: AMIODARONE INJ 450 MG in DEXTROSE 5% 241 ML IV SCH ×2 (07:14→09:55)
[2018-12-15] MEDS: PIPERACILLIN/TAZOBACTAM 3,375 MG in SODIUM CHLORIDE 0.9% 100 ML IV SCH ×2 (07:14→21:25)
[2018-12-15] MEDS ORDERED: SODIUM BICARB INJ 100 MEQ in SODIUM CHLORIDE 0.45% 1,000 ML IV SCH (08:00)
[2018-12-15] MEDS ORDERED: FUROSEMIDE 40 MG/4 ML VIAL IV SCH (08:00)
[2018-12-15] MEDS: THIAMINE 200 MG/2 ML VIAL IV SCH (08:55)
[2018-12-15] MEDS ORDERED: DILTIAZEM CD 120 MG CAPSULE PO SCH (09:00)
[2018-12-15] MEDS: METOPROLOL TARTRATE 25 MG TABLET PO SCH (09:00)
[2018-12-15] MEDS ORDERED: SODIUM BICARBONATE 50 MEQ/50 ML SYRINGE IV ONE ×3 (10:08→14:46)
[2018-12-15] MEDS: DEXTROSE 50% 25 GM/50 ML SYRINGE IV PRN (10:59)
[2018-12-15] MEDS ORDERED: HEPARIN/NACL 0.9% 2 UNITS/ML 500 ML IV ONE (10:59)
[2018-12-15] MEDS ORDERED: NOREPINEPHRINE 8 MG in SODIUM CHLORIDE 0.9% 242 ML IV PRN (11:26)
[2018-12-15] MEDS ORDERED: NOREPINEPHRINE 4 MG/4 ML VIAL IV ONE (11:27)
[2018-12-15] MEDS ORDERED: EPINEPHrine 1 MG/ML VIAL ONE (11:27)
[2018-12-15] MEDS ORDERED: ALBUMIN 25% 25 GM/100 ML VIAL IV ONE (12:24)
[2018-12-15] MEDS ORDERED: ALBUMIN 5% 12.5 GM/250 ML VIAL IV ONE (12:26)
[2018-12-15] MEDS ORDERED: MIDAZOLAM 2 MG/2 ML VIAL ONE (14:03)
[2018-12-15] MEDS ORDERED: SEVOFLURANE 1 UNIT/15 MINUTE INH ONE (14:03)
[2018-12-15] MEDS ORDERED: ROCURONIUM 100 MG/10 ML VIAL IV ONE (14:03)
[2018-12-15] MEDS ORDERED: ETOMIDATE 40 MG/20 ML VIAL IV ONE (14:03)
[2018-12-15] MEDS ORDERED: PHENYLEPHRINE 10 MG/1 ML VIAL IV ONE (14:03)
[2018-12-15] MEDS ORDERED: fentaNYL 100 MCG/2 ML VIAL ONE (14:03)
[2018-12-15 14:19] LABS: ABG Base Excess -15.7 MMOL/L (-2.5-2.5); ABG HCO3 12.8 MMOL/L (20-26); ABG Oxygen Saturation 98.6 % (95-100); ABG PCO2 49.1 MM HG (35-48); ABG TCO2 13.7 MMOL/L (23-27)
[2018-12-15 14:22] LABS: ABG PH 7.087 (7.35-7.45)
[2018-12-15] MEDS: DEXAMETHASONE 4 MG/1 ML VIAL IV SCH ×2 (16:17→21:26)
[2018-12-15] MEDS: SODIUM BICARB INJ 100 MEQ in DEXTROSE 5% NACL 0.22% 1,000 ML IV SCH (16:17)
[2018-12-15] MEDS: dilTIAZem Drip 125 MG/125 ML PREMIX IV SCH (16:23)
[2018-12-15] MEDS ORDERED: NOREPINEPHRINE 16 MG in SODIUM CHLORIDE 0.9% 234 ML IV PRN (18:59)
[2018-12-15] MEDS: PHENYLEPHRINE INJ 160 MG in SODIUM CHLORIDE 0.9% 234 ML IV PRN (20:00)
[2018-12-15] MEDS: PROPOFOL 1,000 MG/100 ML BOTTLE IV SCH (20:16)
[2018-12-16] MEDS: IPRATROPIUM 500 MCG/2.5 ML NEB RESP TX SCH ×4 (00:57→19:40)
[2018-12-16] MEDS: SODIUM BICARB INJ 100 MEQ in DEXTROSE 5% NACL 0.22% 1,000 ML IV SCH ×4 (02:59→22:37)
[2018-12-16] MEDS: PHENYLEPHRINE INJ 160 MG in SODIUM CHLORIDE 0.9% 234 ML IV PRN ×3 (03:10→18:35)
[2018-12-16] MEDS: DOXYCYCLINE HYCLATE INJ 100 MG in SODIUM CHLORIDE 0.9% 100 ML IV SCH ×2 (03:56→16:59)
[2018-12-16] MEDS: DEXAMETHASONE 4 MG/1 ML VIAL IV SCH ×3 (03:56→19:56)
[2018-12-16] MEDS: dilTIAZem Drip 125 MG/125 ML PREMIX IV SCH ×3 (03:57→20:31)
[2018-12-16 05:08] LABS: ABG Base Excess -4.5 MMOL/L (-2.5-2.5); ABG HCO3 19.3 MMOL/L (20-26); ABG Oxygen Saturation 99.2 % (95-100); ABG PH 7.399 (7.35-7.45); ABG PO2 203.9 MM HG (80-95); ABG TCO2 20.3 MMOL/L (23-27)
[2018-12-16 05:16] LABS: Basophils % 0.2 % (0.0-0.8); Hematocrit 39.5 VOL% (42.0-52.0); Immature Granulocytes % 0.7 %; Immature Granulocytes Absolute 0.14 #; Lymphocytes # 0.5 10*3/uL (1.4-4.0); Lymphocytes % 2.3 % (21.2-54.2); Mean Corpuscular HGB Conc 30.9 GM/DL (32-36); Mean Corpuscular Hemoglobin 31 PG (27-34); Mean Corpuscular Volume 100.8 FL (87-102); Mean Platelet Volume 11.3 FL (9.6-12.0); Monocytes # 0.7 10*3/uL (0.11-0.8); Monocytes % 3.2 % (1.7-12.7); NRBC # 0.16 10*3/uL; Neutrophils # 20.2 10*3/uL (1.4-7.4); Neutrophils % 93.6 % (38.7-73.9); Red Blood Count 3.92 MC/CUMM (3.8-5.5); Red Cell Distribution Width 15.4 % (9.3-17.3)
[2018-12-16 05:19] LABS: Hemoglobin 12.2 GM/DL (14.0-18.0); Platelet Count 63 T/CUMM (130-400); White Blood Count 21.5 T/CUMM (4-12)
[2018-12-16 05:27] LABS: INR 4.1
[2018-12-16 06:02] LABS: PT Patient Result 44.1 SECS
[2018-12-16 06:11] LABS: Albumin 3.3 G/DL (3.4-5.0); Calcium 6.7 MG/DL (8.5-10.1); Osmolality,Calculated 281.1 MOS/KG (273-304); Potassium 4.3 MMOL/L (3.5-5.1); Total Protein 6.3 G/DL (6.4-8.3)
[2018-12-16 06:14] LABS: Band Neutrophils 1 % (0-10); Lymphocytes 1 % (20-55); Platelet Estimate Decreased; Segmented Neutrophils 96 % (50-85); Total Cells Counted 100
[2018-12-16] MEDS: PROPOFOL 1,000 MG/100 ML BOTTLE IV SCH ×2 (06:41→18:13)
[2018-12-16] MEDS: THIAMINE 200 MG/2 ML VIAL IV SCH (09:30)
[2018-12-16] MEDS: PIPERACILLIN/TAZOBACTAM 3,375 MG in SODIUM CHLORIDE 0.9% 100 ML IV SCH ×2 (09:31→19:55)
[2018-12-16] MEDS ORDERED: PHYTONADIONE 10 MG/1 ML AMP SUBCUT ONE (12:26)
[2018-12-16 19:05] LABS: Hepatitis A Ab IgM Result Negative (Negative); Hepatitis B Core IgM Quant 0.08 Index; Hepatitis B Core IgM Result Negative (Negative); Hepatitis B Surface Ag Quant < 0.10 Index; Hepatitis B Surface Ag Result Negative (Negative); Hepatitis C Virus Ab Quant 0.06 Index; Hepatitis C Virus Ab Result Negative (Negative)
[2018-12-17] MEDS: PROPOFOL 1,000 MG/100 ML BOTTLE IV SCH ×5 (00:22→20:26)
[2018-12-17] MEDS: IPRATROPIUM 500 MCG/2.5 ML NEB RESP TX SCH ×4 (01:29→20:19)
[2018-12-17] MEDS: DOXYCYCLINE HYCLATE INJ 100 MG in SODIUM CHLORIDE 0.9% 100 ML IV SCH ×2 (03:25→15:15)
[2018-12-17] MEDS: SODIUM BICARB INJ 100 MEQ in DEXTROSE 5% NACL 0.22% 1,000 ML IV SCH (04:16)
[2018-12-17] MEDS: PHENYLEPHRINE INJ 160 MG in SODIUM CHLORIDE 0.9% 234 ML IV PRN ×3 (04:16→21:09)
[2018-12-17 04:56] LABS: ABG Base Excess 3.9 MMOL/L (-2.5-2.5); ABG Oxygen Saturation 99.9 % (95-100); ABG PCO2 29.4 MM HG (35-48); ABG PH 7.549 (7.35-7.45); ABG TCO2 22.5 MMOL/L (23-27); Basophils % 0.1 % (0.0-0.8); Hematocrit 35.9 VOL% (42.0-52.0); Hemoglobin 11.9 GM/DL (14.0-18.0); Immature Granulocytes % 1.4 %; Immature Granulocytes Absolute 0.22 #; Lymphocytes # 0.5 10*3/uL (1.4-4.0); Lymphocytes % 3.3 % (21.2-54.2); Mean Corpuscular HGB Conc 33.1 GM/DL (32-36); Mean Corpuscular Hemoglobin 32 PG (27-34); Mean Corpuscular Volume 95.7 FL (87-102); Mean Platelet Volume 11.6 FL (9.6-12.0); Monocytes # 0.6 10*3/uL (0.11-0.8); Monocytes % 3.7 % (1.7-12.7); NRBC # 0.15 10*3/uL; Neutrophils % 91.5 % (38.7-73.9); Platelet Count 47 T/CUMM (130-400); Red Blood Count 3.75 MC/CUMM (3.8-5.5); White Blood Count 15.3 T/CUMM (4-12)
[2018-12-17 05:11] LABS: INR 2.7
[2018-12-17 05:27] LABS: PT Patient Result 29.4 SECS
[2018-12-17 05:47] LABS: Albumin 3.1 G/DL (3.4-5.0); Bilirubin,Total 10.4 MG/DL (0.2-1.0); Calcium 6.2 MG/DL (8.5-10.1); Potassium 3.7 MMOL/L (3.5-5.1); Total Protein 5.9 G/DL (6.4-8.3)
[2018-12-17 05:50] LABS: Band Neutrophils 2 % (0-10); Lymphocytes 1 % (20-55); Segmented Neutrophils 94 % (50-85); Total Cells Counted 100
[2018-12-17 05:51] LABS: Hypochromasia Slight; Macrocytosis Slight; Platelet Estimate Decreased
[2018-12-17] MEDS: THIAMINE 200 MG/2 ML VIAL IV SCH (08:46)
[2018-12-17] MEDS: DEXAMETHASONE 4 MG/1 ML VIAL IV SCH ×2 (08:47→20:25)
[2018-12-17] MEDS ORDERED: PHYTONADIONE 10 MG/1 ML AMP SUBCUT ONE (08:47)
[2018-12-17] MEDS: PIPERACILLIN/TAZOBACTAM 3,375 MG in SODIUM CHLORIDE 0.9% 100 ML IV SCH ×2 (08:48→20:27)
[2018-12-17] MEDS: LACTATED RINGERS 1,000 ML IV SCH ×3 (08:49→22:20)
[2018-12-17] MEDS ORDERED: PHYTONADIONE 10 MG/1 ML AMP ONE (08:52)
[2018-12-17] MEDS: dilTIAZem Drip 125 MG/125 ML PREMIX IV SCH (11:43)
[2018-12-17] MEDS ORDERED: MULTIVITAMIN INJ 10 ML in AMINO ACIDS/DEXT/LYTES 5-20% 2,000 ML IV SCH (17:00)
[2018-12-17] MEDS ORDERED: DEXTROSE 10% 1,000 ML IV PRN (17:00)
[2018-12-17] MEDS: ACETAMINOPHEN 650 MG SUPP RECTAL PRN (20:15)
[2018-12-17 22:21] LABS: Basophils % 0.3 % (0.0-0.8); Hematocrit 40.3 VOL% (42.0-52.0); Hemoglobin 12.7 GM/DL (14.0-18.0); Immature Granulocytes % 2.5 %; Immature Granulocytes Absolute 0.28 #; Lymphocytes # 0.6 10*3/uL (1.4-4.0); Mean Corpuscular HGB Conc 31.5 GM/DL (32-36); Mean Corpuscular Hemoglobin 31 PG (27-34); Mean Corpuscular Volume 97.1 FL (87-102); Mean Platelet Volume 11.6 FL (9.6-12.0); Monocytes # 0.5 10*3/uL (0.11-0.8); Monocytes % 3.9 % (1.7-12.7); Neutrophils # 10.1 10*3/uL (1.4-7.4); Neutrophils % 88.3 % (38.7-73.9); Platelet Count 49 T/CUMM (130-400); Red Blood Count 4.15 MC/CUMM (3.8-5.5); White Blood Count 11.4 T/CUMM (4-12)
[2018-12-18] MEDS: IPRATROPIUM 500 MCG/2.5 ML NEB RESP TX SCH ×4 (02:09→19:52)
[2018-12-18 04:41] LABS: ABG Base Excess 0.9 MMOL/L (-2.5-2.5); ABG HCO3 23.5 MMOL/L (20-26); ABG Oxygen Saturation 97.9 % (95-100); ABG PCO2 31.5 MM HG (35-48); ABG PH 7.491 (7.35-7.45); ABG PO2 112.8 MM HG (80-95); ABG TCO2 24.5 MMOL/L (23-27)
[2018-12-18] MEDS: LACTATED RINGERS 1,000 ML IV SCH ×2 (04:52→12:49)
[2018-12-18] MEDS: DOXYCYCLINE HYCLATE INJ 100 MG in SODIUM CHLORIDE 0.9% 100 ML IV SCH ×2 (05:15→16:20)
[2018-12-18 05:40] LABS: Basophils % 0.3 % (0.0-0.8); Hematocrit 39.8 VOL% (42.0-52.0); Hemoglobin 12.7 GM/DL (14.0-18.0); Immature Granulocytes % 2.2 %; Immature Granulocytes Absolute 0.22 #; Lymphocytes # 0.8 10*3/uL (1.4-4.0); Lymphocytes % 7.8 % (21.2-54.2); Mean Corpuscular HGB Conc 31.9 GM/DL (32-36); Mean Corpuscular Hemoglobin 31 PG (27-34); Mean Corpuscular Volume 98.3 FL (87-102); Mean Platelet Volume 10.9 FL (9.6-12.0); Monocytes # 0.6 10*3/uL (0.11-0.8); Monocytes % 5.6 % (1.7-12.7); Neutrophils # 8.5 10*3/uL (1.4-7.4); Neutrophils % 84.1 % (38.7-73.9); Red Blood Count 4.05 MC/CUMM (3.8-5.5); Red Cell Distribution Width 14.6 % (9.3-17.3); White Blood Count 10.1 T/CUMM (4-12)
[2018-12-18 05:49] LABS: Platelet Count 46 T/CUMM (130-400)
[2018-12-18 05:54] LABS: Calcium 6.5 MG/DL (8.5-10.1); Osmolality,Calculated 303.7 MOS/KG (273-304); Potassium 3.7 MMOL/L (3.5-5.1)
[2018-12-18 05:59] LABS: Prealbumin 5.8 MG/DL (20-40)
[2018-12-18 06:16] LABS: Platelet Estimate Decreased; Polychromasia Few
[2018-12-18] MEDS: PIPERACILLIN/TAZOBACTAM 3,375 MG in SODIUM CHLORIDE 0.9% 100 ML IV SCH ×2 (07:35→20:30)
[2018-12-18] MEDS: DEXAMETHASONE 4 MG/1 ML VIAL IV SCH ×2 (07:35→20:29)
[2018-12-18] MEDS: PHENYLEPHRINE INJ 160 MG in SODIUM CHLORIDE 0.9% 234 ML IV PRN (08:05)
[2018-12-18] MEDS: THIAMINE 200 MG/2 ML VIAL IV SCH (08:46)
[2018-12-18 09:20] LABS: INR 2.6
[2018-12-18 09:22] LABS: PT Patient Result 27.9 SECS
[2018-12-18] MEDS ORDERED: PHYTONADIONE 10 MG/1 ML AMP SUBCUT ONE (09:53)
[2018-12-18 09:55] LABS: Albumin 2.7 G/DL (3.4-5.0); Bilirubin,Direct 7.41 MG/DL (0.0-0.20); Bilirubin,Indirect 3.9 MG/DL (0.0-1.0); Bilirubin,Total 11.3 MG/DL (0.2-1.0); Total Protein 5.6 G/DL (6.4-8.3)
[2018-12-18] MEDS: dilTIAZem Drip 125 MG/125 ML PREMIX IV SCH (12:43)
[2018-12-18] MEDS ORDERED: MULTIVITAMIN INJ 10 ML in AMINO ACIDS/DEXT/LYTES 5-20% 2,000 ML IV SCH (17:00)
[2018-12-18] MEDS: MULTIVITAMIN IV SCH (17:03)
[2018-12-18] MEDS: [UNRECOGNIZED DRUG - OTHER] IV SCH (17:03)
[2018-12-18] MEDS: INSULIN REGULAR IV SCH (17:03)
[2018-12-18] MEDS: INSULIN REGULAR 100 UNIT/ML SUBCUT SCH (18:41)
[2018-12-18 19:00] LABS: CMV DNA Detect/Quant, P Undetected IU/mL (Undetected)
[2018-12-18] MEDS: PROPOFOL 1,000 MG/100 ML BOTTLE IV SCH (20:30)
[2018-12-19] MEDS: LACTATED RINGERS 1,000 ML IV SCH (00:30)
[2018-12-19] MEDS: IPRATROPIUM 500 MCG/2.5 ML NEB RESP TX SCH ×4 (01:33→20:15)
[2018-12-19] MEDS: INSULIN REGULAR 100 UNIT/ML SUBCUT SCH ×4 (02:45→18:07)
[2018-12-19 05:42] LABS: ABG Base Excess 3.8 MMOL/L (-2.5-2.5); ABG HCO3 26.4 MMOL/L (20-26); ABG Oxygen Saturation 98.8 % (95-100); ABG PCO2 33.5 MM HG (35-48); ABG PH 7.515 (7.35-7.45); ABG PO2 144.9 MM HG (80-95); ABG TCO2 27.5 MMOL/L (23-27)
[2018-12-19 05:54] LABS: Basophils % 0.1 % (0.0-0.8); Hematocrit 40.2 VOL% (42.0-52.0); Hemoglobin 12.8 GM/DL (14.0-18.0); Immature Granulocytes % 1.2 %; Immature Granulocytes Absolute 0.09 #; Lymphocytes # 0.4 10*3/uL (1.4-4.0); Lymphocytes % 4.7 % (21.2-54.2); Mean Corpuscular HGB Conc 31.8 GM/DL (32-36); Mean Corpuscular Hemoglobin 31 PG (27-34); Mean Corpuscular Volume 95.7 FL (87-102); Mean Platelet Volume 12.6 FL (9.6-12.0); Monocytes # 0.5 10*3/uL (0.11-0.8); Monocytes % 6.4 % (1.7-12.7); NRBC # 0.07 10*3/uL; Neutrophils # 6.5 10*3/uL (1.4-7.4); Neutrophils % 87.6 % (38.7-73.9); Red Cell Distribution Width 14.2 % (9.3-17.3); White Blood Count 7.4 T/CUMM (4-12)
[2018-12-19 06:01] LABS: Platelet Count 28 T/CUMM (130-400)
[2018-12-19 06:10] LABS: INR 2.2
[2018-12-19 06:11] LABS: PT Patient Result 24.1 SECS
[2018-12-19] MEDS: DOXYCYCLINE HYCLATE INJ 100 MG in SODIUM CHLORIDE 0.9% 100 ML IV SCH (06:21)
[2018-12-19 06:32] LABS: Albumin 2.7 G/DL (3.4-5.0); Bilirubin,Direct 7.5 MG/DL (0.0-0.20); Bilirubin,Indirect 3.6 MG/DL (0.0-1.0); Bilirubin,Total 11.1 MG/DL (0.2-1.0); Total Protein 5.7 G/DL (6.4-8.3)
[2018-12-19 06:40] LABS: Albumin 2.7 G/DL (3.4-5.0); Band Neutrophils 1 % (0-10); Bilirubin,Total 11.07 MG/DL (0.2-1.0); Calcium 6.9 MG/DL (8.5-10.1); Lymphocytes 6 % (20-55); Osmolality,Calculated 313.5 MOS/KG (273-304); Potassium 3.9 MMOL/L (3.5-5.1); Segmented Neutrophils 89 % (50-85); Total Cells Counted 100; Total Protein 5.7 G/DL (6.4-8.3)
[2018-12-19 06:41] LABS: Hypochromasia 2+; Platelet Estimate Decreased
[2018-12-19] MEDS: DEXAMETHASONE 4 MG/1 ML VIAL IV SCH ×3 (08:01→19:47)
[2018-12-19] MEDS: PIPERACILLIN/TAZOBACTAM 3,375 MG in SODIUM CHLORIDE 0.9% 100 ML IV SCH (08:01)
[2018-12-19] MEDS ORDERED: CALCIUM GLUCONATE 2,000 MG in SODIUM CHLORIDE 0.9% 100 ML IV ONE (09:00)
[2018-12-19] MEDS: MEROPENEM 500 MG in SODIUM CHLORIDE 0.9% 100 ML IV SCH ×2 (09:29→19:48)
[2018-12-19] MEDS: THIAMINE 200 MG/2 ML VIAL IV SCH (09:29)
[2018-12-19] MEDS: SODIUM CHLORIDE 0.9% 1,000 ML IV SCH (09:30)
[2018-12-19] MEDS: dilTIAZem Drip 125 MG/125 ML PREMIX IV SCH ×2 (11:21→19:46)
[2018-12-19] MEDS: MULTIVITAMIN IV SCH (17:55)
[2018-12-19] MEDS: [UNRECOGNIZED DRUG - OTHER] IV SCH (17:55)
[2018-12-19] MEDS: INSULIN REGULAR IV SCH (17:55)
[2018-12-19] MEDS: PROPOFOL 1,000 MG/100 ML BOTTLE IV SCH (19:48)
[2018-12-19] MEDS: METOPROLOL TARTRATE 25 MG TABLET PO SCH (20:24)
[2018-12-20] MEDS: INSULIN REGULAR 100 UNIT/ML SUBCUT SCH ×4 (00:29→18:08)
[2018-12-20] MEDS: IPRATROPIUM 500 MCG/2.5 ML NEB RESP TX SCH ×4 (00:35→19:33)
[2018-12-20] MEDS: MORPHINE 4 MG/1 ML VIAL IV PRN (01:39)
[2018-12-20 04:00] LABS: ABG HCO3 27.1 MMOL/L (20-26); ABG PCO2 36.8 MM HG (35-48); ABG PH 7.466 (7.35-7.45); ABG TCO2 22.8 MMOL/L (23-27)
[2018-12-20 04:12] LABS: Basophils % 0.2 % (0.0-0.8); Hematocrit 42.4 VOL% (42.0-52.0); Hemoglobin 13.3 GM/DL (14.0-18.0); Immature Granulocytes % 1.8 %; Immature Granulocytes Absolute 0.19 #; Lymphocytes # 0.4 10*3/uL (1.4-4.0); Lymphocytes % 3.5 % (21.2-54.2); Mean Corpuscular HGB Conc 31.4 GM/DL (32-36); Mean Corpuscular Hemoglobin 30 PG (27-34); Mean Corpuscular Volume 95.9 FL (87-102); Mean Platelet Volume 12.4 FL (9.6-12.0); Monocytes # 0.6 10*3/uL (0.11-0.8); Monocytes % 5.5 % (1.7-12.7); NRBC # 0.13 10*3/uL; Neutrophils # 9.2 10*3/uL (1.4-7.4); Red Blood Count 4.42 MC/CUMM (3.8-5.5); Red Cell Distribution Width 14.1 % (9.3-17.3); White Blood Count 10.3 T/CUMM (4-12)
[2018-12-20 04:17] LABS: INR 2.1
[2018-12-20 04:22] LABS: Platelet Count 30 T/CUMM (130-400)
[2018-12-20 04:24] LABS: PT Patient Result 22.8 SECS
[2018-12-20 04:40] LABS: Albumin 2.6 G/DL (3.4-5.0); Calcium 7.6 MG/DL (8.5-10.1); Osmolality,Calculated 319.4 MOS/KG (273-304); Potassium 4.5 MMOL/L (3.5-5.1); Total Protein 5.7 G/DL (6.4-8.3)
[2018-12-20 05:12] LABS: Band Neutrophils 1 % (0-10); Hypochromasia 1+; Lymphocytes 3 % (20-55); Nucleated Red Blood Cells 1 (0-5); Platelet Estimate Decreased; Segmented Neutrophils 93 % (50-85); Total Cells Counted 100
[2018-12-20] MEDS: MEROPENEM 500 MG in SODIUM CHLORIDE 0.9% 100 ML IV SCH ×2 (09:13→21:17)
[2018-12-20] MEDS: DEXAMETHASONE 4 MG/1 ML VIAL IV SCH ×2 (09:14→21:16)
[2018-12-20] MEDS: METOPROLOL TARTRATE 25 MG TABLET PO SCH ×2 (09:14→21:18)
[2018-12-20] MEDS: THIAMINE 200 MG/2 ML VIAL IV SCH (09:14)
[2018-12-20] MEDS: SODIUM CHLORIDE 0.9% 1,000 ML IV SCH (09:20)
[2018-12-20] MEDS ORDERED: CALCIUM GLUCONATE 2,000 MG in SODIUM CHLORIDE 0.9% 100 ML IV ONE (09:22)
[2018-12-20] MEDS: dilTIAZem Drip 125 MG/125 ML PREMIX IV SCH (12:06)
[2018-12-20] MEDS: METOCLOPRAMIDE 10 MG/2 ML VIAL IV SCH ×2 (15:19→18:08)
[2018-12-20] MEDS: MULTIVITAMIN IV SCH (17:59)
[2018-12-20] MEDS: [UNRECOGNIZED DRUG - OTHER] IV SCH (17:59)
[2018-12-20] MEDS: INSULIN REGULAR IV SCH (17:59)
[2018-12-21] MEDS: dilTIAZem Drip 125 MG/125 ML PREMIX IV SCH ×2 (00:20→13:23)
[2018-12-21] MEDS: METOCLOPRAMIDE 10 MG/2 ML VIAL IV SCH ×4 (01:00→18:00)
[2018-12-21] MEDS: INSULIN REGULAR 100 UNIT/ML SUBCUT SCH ×4 (01:00→18:27)
[2018-12-21] MEDS: IPRATROPIUM 500 MCG/2.5 ML NEB RESP TX SCH ×4 (01:14→20:14)
[2018-12-21] MEDS: PROPOFOL 1,000 MG/100 ML BOTTLE IV SCH ×2 (05:51→19:48)
[2018-12-21] MEDS: ACETAMINOPHEN 650 MG SUPP RECTAL PRN (06:00)
[2018-12-21 06:26] LABS: Basophils # 0.1 10*3/uL (0.0-0.2); Basophils % 0.8 % (0.0-0.8); Hematocrit 44.3 VOL% (42.0-52.0); Hemoglobin 14.1 GM/DL (14.0-18.0); Immature Granulocytes Absolute 1.07 #; Lymphocytes # 0.6 10*3/uL (1.4-4.0); Mean Corpuscular HGB Conc 31.8 GM/DL (32-36); Mean Corpuscular Hemoglobin 31 PG (27-34); Mean Corpuscular Volume 95.9 FL (87-102); Mean Platelet Volume 13.3 FL (9.6-12.0); Monocytes # 1.1 10*3/uL (0.11-0.8); Monocytes % 7.3 % (1.7-12.7); NRBC # 0.19 10*3/uL; Neutrophils # 12.5 10*3/uL (1.4-7.4); Neutrophils % 80.9 % (38.7-73.9); Platelet Count 65 T/CUMM (130-400); Red Blood Count 4.62 MC/CUMM (3.8-5.5); Red Cell Distribution Width 14.8 % (9.3-17.3); White Blood Count 15.4 T/CUMM (4-12)
[2018-12-21 06:41] LABS: ABG Base Excess 0.8 MMOL/L (-2.5-2.5); ABG HCO3 25.1 MMOL/L (20-26); ABG Oxygen Saturation 99.4 % (95-100); ABG PH 7.473 (7.35-7.45); ABG TCO2 19.9 MMOL/L (23-27)
[2018-12-21 06:45] LABS: Band Neutrophils 2 % (0-10); Hypochromasia 1+; Lymphocytes 3 % (20-55); Myelocytes 1 %; Nucleated Red Blood Cells 1 (0-5); Platelet Estimate Decreased; Segmented Neutrophils 90 % (50-85); Total Cells Counted 100
[2018-12-21 07:05] LABS: Albumin 2.4 G/DL (3.4-5.0); Calcium 8.2 MG/DL (8.5-10.1); Osmolality,Calculated 327.1 MOS/KG (273-304); Potassium 5.2 MMOL/L (3.5-5.1); Total Protein 5.8 G/DL (6.4-8.3)
[2018-12-21 07:07] LABS: Bilirubin,Total 13.8 MG/DL (0.2-1.0)
[2018-12-21] MEDS: DEXAMETHASONE 4 MG/1 ML VIAL IV SCH ×2 (08:57→21:01)
[2018-12-21] MEDS: METOPROLOL TARTRATE 25 MG TABLET PO SCH ×2 (08:58→21:01)
[2018-12-21] MEDS: THIAMINE 200 MG/2 ML VIAL IV SCH (08:58)
[2018-12-21] MEDS: MEROPENEM 500 MG in SODIUM CHLORIDE 0.9% 100 ML IV SCH ×2 (08:58→21:01)
[2018-12-21] MEDS: SODIUM CHLORIDE 0.9% 1,000 ML IV SCH (11:20)
[2018-12-21] MEDS: SODIUM BICARB INJ 100 MEQ in DEXTROSE 5% 1,000 ML IV SCH (16:46)
[2018-12-21] MEDS: MULTIVITAMIN IV SCH (16:46)
[2018-12-21] MEDS: INSULIN REGULAR IV SCH (16:46)
[2018-12-21] MEDS: [UNRECOGNIZED DRUG - OTHER] IV SCH (16:46)
[2018-12-22] MEDS: IPRATROPIUM 500 MCG/2.5 ML NEB RESP TX SCH ×4 (00:18→19:12)
[2018-12-22] MEDS: INSULIN REGULAR 100 UNIT/ML SUBCUT SCH ×4 (00:38→18:43)
[2018-12-22] MEDS: METOCLOPRAMIDE 10 MG/2 ML VIAL IV SCH ×4 (00:39→18:44)
[2018-12-22] MEDS: MORPHINE 4 MG/1 ML VIAL IV PRN (00:51)
[2018-12-22] MEDS: dilTIAZem Drip 125 MG/125 ML PREMIX IV SCH ×2 (04:00→14:05)
[2018-12-22 05:10] LABS: ABG HCO3 24.5 MMOL/L (20-26); ABG PCO2 35.9 MM HG (35-48); ABG PH 7.452 (7.35-7.45); ABG PO2 149.5 MM HG (80-95); ABG TCO2 25.6 MMOL/L (23-27)
[2018-12-22 06:01] LABS: Basophils % 0.1 % (0.0-0.8); Hemoglobin 14.4 GM/DL (14.0-18.0); Immature Granulocytes % 9.9 %; Immature Granulocytes Absolute 1.68 #; Lymphocytes # 0.7 10*3/uL (1.4-4.0); Lymphocytes % 4.4 % (21.2-54.2); Mean Corpuscular HGB Conc 31.3 GM/DL (32-36); Mean Corpuscular Hemoglobin 31 PG (27-34); Mean Corpuscular Volume 98.3 FL (87-102); Monocytes # 1.6 10*3/uL (0.11-0.8); Monocytes % 9.4 % (1.7-12.7); NRBC # 0.11 10*3/uL; Neutrophils # 12.9 10*3/uL (1.4-7.4); Neutrophils % 76.2 % (38.7-73.9); Red Blood Count 4.68 MC/CUMM (3.8-5.5); Red Cell Distribution Width 15.3 % (9.3-17.3); White Blood Count 16.9 T/CUMM (4-12)
[2018-12-22 06:24] LABS: Platelet Count 77 T/CUMM (130-400)
[2018-12-22 06:25] LABS: Albumin 2.5 G/DL (3.4-5.0); Calcium 8.6 MG/DL (8.5-10.1); Osmolality,Calculated 335.7 MOS/KG (273-304); Prealbumin 14.2 MG/DL (20-40); Total Protein 5.9 G/DL (6.4-8.3)
[2018-12-22 06:26] LABS: Hypochromasia 1+; Lymphocytes 5 % (20-55); Metamyelocytes 1 %; Myelocytes 1 %; Segmented Neutrophils 85 % (50-85); Total Cells Counted 100
[2018-12-22 06:27] LABS: Macrocytosis Slight; Platelet Estimate Decreased
[2018-12-22 06:30] LABS: Potassium 6.1 MMOL/L (3.5-5.1)
[2018-12-22] MEDS: METOPROLOL TARTRATE 25 MG TABLET PO SCH ×2 (09:15→21:16)
[2018-12-22] MEDS: DEXAMETHASONE 4 MG/1 ML VIAL IV SCH ×2 (09:15→21:16)
[2018-12-22] MEDS: THIAMINE 200 MG/2 ML VIAL IV SCH (09:17)
[2018-12-22] MEDS: MEROPENEM 500 MG in SODIUM CHLORIDE 0.9% 100 ML IV SCH ×2 (09:24→21:17)
[2018-12-22 10:41] LABS: INR 2.1
[2018-12-22 10:49] LABS: PT Patient Result 22.5 SECS
[2018-12-22] MEDS ORDERED: SODIUM POLYSTYRENE SULFATE 15 GM/60 ML BOTTLE PO ONE (11:40)
[2018-12-22] MEDS: SODIUM BICARB INJ 100 MEQ in DEXTROSE 5% 1,000 ML IV SCH (14:30)
[2018-12-22] MEDS: INSULIN REGULAR IV SCH (17:28)
[2018-12-22] MEDS: [UNRECOGNIZED DRUG - OTHER] IV SCH (17:28)
[2018-12-22] MEDS: MULTIVITAMIN IV SCH (17:28)
[2018-12-22] MEDS: AMINO ACIDS IV SCH (17:28)
[2018-12-22] MEDS: DILTIAZEM 60 MG TABLET PO SCH ×2 (17:32→21:16)
[2018-12-22] MEDS: PROPOFOL 1,000 MG/100 ML BOTTLE IV SCH (20:23)
[2018-12-23] MEDS: INSULIN REGULAR 100 UNIT/ML SUBCUT SCH ×5 (00:05→23:44)
[2018-12-23] MEDS: IPRATROPIUM 500 MCG/2.5 ML NEB RESP TX SCH ×4 (00:09→19:50)
[2018-12-23] MEDS: METOCLOPRAMIDE 10 MG/2 ML VIAL IV SCH ×5 (00:10→23:45)
[2018-12-23] MEDS: MORPHINE 4 MG/1 ML VIAL IV PRN (02:12)
[2018-12-23] MEDS: dilTIAZem Drip 125 MG/125 ML PREMIX IV SCH ×2 (02:15→18:00)
[2018-12-23 04:20] LABS: ABG Base Excess 1.6 MMOL/L (-2.5-2.5); ABG HCO3 25.8 MMOL/L (20-26); ABG Oxygen Saturation 99.3 % (95-100); ABG PCO2 38.6 MM HG (35-48); ABG PH 7.432 (7.35-7.45); ABG TCO2 21.8 MMOL/L (23-27); Allen Test Positive; Pt O2 Delivery Device Ventilator
[2018-12-23 05:26] LABS: INR 2.1
[2018-12-23 06:18] LABS: PT Patient Result 22.5 SECS
[2018-12-23 08:28] LABS: Basophils # 0.1 10*3/uL (0.0-0.2); Basophils % 0.6 % (0.0-0.8); Hematocrit 45.5 VOL% (42.0-52.0); Hemoglobin 14.1 GM/DL (14.0-18.0); Immature Granulocytes % 7.5 %; Lymphocytes # 0.6 10*3/uL (1.4-4.0); Lymphocytes % 3.5 % (21.2-54.2); Mean Corpuscular Hemoglobin 31 PG (27-34); Mean Corpuscular Volume 98.5 FL (87-102); Monocytes # 1.4 10*3/uL (0.11-0.8); Monocytes % 8.3 % (1.7-12.7); NRBC # 0.09 10*3/uL; Neutrophils % 80.1 % (38.7-73.9); Red Blood Count 4.62 MC/CUMM (3.8-5.5); Red Cell Distribution Width 15.7 % (9.3-17.3); White Blood Count 17.4 T/CUMM (4-12)
[2018-12-23 08:29] LABS: Platelet Count 80 T/CUMM (130-400)
[2018-12-23 08:47] LABS: Albumin 2.4 G/DL (3.4-5.0); Calcium 8.7 MG/DL (8.5-10.1); Osmolality,Calculated 339.1 MOS/KG (273-304); Potassium 5.6 MMOL/L (3.5-5.1); Total Protein 5.8 G/DL (6.4-8.3)
[2018-12-23 08:48] LABS: Band Neutrophils 3 % (0-10); Hypochromasia 1+; Lymphocytes 2 % (20-55); Macrocytosis Slight; Platelet Estimate Decreased; Segmented Neutrophils 89 % (50-85); Total Cells Counted 100
[2018-12-23 08:53] LABS: Bilirubin,Total 18.5 MG/DL (0.2-1.0)
[2018-12-23] MEDS: MEROPENEM 500 MG in SODIUM CHLORIDE 0.9% 100 ML IV SCH ×2 (09:29→21:19)
[2018-12-23] MEDS: METOPROLOL TARTRATE 25 MG TABLET PO SCH ×2 (09:31→21:19)
[2018-12-23] MEDS: DILTIAZEM 60 MG TABLET PO SCH ×4 (09:31→21:19)
[2018-12-23] MEDS: DEXAMETHASONE 4 MG/1 ML VIAL IV SCH ×2 (09:32→21:19)
[2018-12-23] MEDS: THIAMINE 200 MG/2 ML VIAL IV SCH (09:34)
[2018-12-23] MEDS: DEXTROSE 5% 1,000 ML IV SCH (16:13)
[2018-12-23] MEDS: MULTIVITAMIN IV SCH (18:56)
[2018-12-23] MEDS: AMINO ACIDS IV SCH (18:56)
[2018-12-23] MEDS: INSULIN REGULAR IV SCH (18:56)
[2018-12-23] MEDS: [UNRECOGNIZED DRUG - OTHER] IV SCH (18:56)
[2018-12-23] MEDS: PROPOFOL 1,000 MG/100 ML BOTTLE IV SCH (21:20)
[2018-12-24] MEDS: IPRATROPIUM 500 MCG/2.5 ML NEB RESP TX SCH ×4 (02:07→19:03)
[2018-12-24 04:19] LABS: Pt O2 Delivery Device Ventilator
[2018-12-24 04:24] LABS: ABG Base Excess -1.3 MMOL/L (-2.5-2.5); ABG HCO3 20.2 MMOL/L (20-26); ABG Oxygen Saturation 99.4 % (95-100); ABG PCO2 26.4 MM HG (35-48); ABG PH 7.501 (7.35-7.45); ABG PO2 181.7 MM HG (80-95)
[2018-12-24 06:00] LABS: Basophils # 0.1 10*3/uL (0.0-0.2); Basophils % 0.5 % (0.0-0.8); Hematocrit 45.7 VOL% (42.0-52.0); Hemoglobin 14.3 GM/DL (14.0-18.0); Immature Granulocytes % 7.8 %; Immature Granulocytes Absolute 1.44 #; Lymphocytes # 0.5 10*3/uL (1.4-4.0); Lymphocytes % 2.8 % (21.2-54.2); Mean Corpuscular HGB Conc 31.3 GM/DL (32-36); Mean Corpuscular Hemoglobin 30 PG (27-34); Mean Platelet Volume 13.1 FL (9.6-12.0); Monocytes # 1.6 10*3/uL (0.11-0.8); Monocytes % 8.7 % (1.7-12.7); NRBC # 0.08 10*3/uL; Neutrophils # 14.7 10*3/uL (1.4-7.4); Neutrophils % 80.2 % (38.7-73.9); Red Blood Count 4.71 MC/CUMM (3.8-5.5); Red Cell Distribution Width 16.4 % (9.3-17.3); White Blood Count 18.4 T/CUMM (4-12)
[2018-12-24 06:01] LABS: Platelet Count 91 T/CUMM (130-400)
[2018-12-24] MEDS: METOCLOPRAMIDE 10 MG/2 ML VIAL IV SCH ×3 (06:11→17:46)
[2018-12-24] MEDS: INSULIN REGULAR 100 UNIT/ML SUBCUT SCH ×3 (06:11→18:05)
[2018-12-24 06:27] LABS: Albumin 2.2 G/DL (3.4-5.0); Calcium 8.5 MG/DL (8.5-10.1); Osmolality,Calculated 345.7 MOS/KG (273-304); Potassium 5.7 MMOL/L (3.5-5.1); Total Protein 5.7 G/DL (6.4-8.3)
[2018-12-24 06:32] LABS: Bilirubin,Total 20.9 MG/DL (0.2-1.0)
[2018-12-24 06:36] LABS: Lymphocytes 6 % (20-55); Platelet Estimate Decreased; Polychromasia Few; Segmented Neutrophils 91 % (50-85); Total Cells Counted 100
[2018-12-24] MEDS: MEROPENEM 500 MG in SODIUM CHLORIDE 0.9% 100 ML IV SCH ×2 (08:36→21:05)
[2018-12-24] MEDS: DEXAMETHASONE 4 MG/1 ML VIAL IV SCH ×2 (08:36→21:04)
[2018-12-24] MEDS: METOPROLOL TARTRATE 25 MG TABLET PO SCH ×2 (09:39→21:05)
[2018-12-24] MEDS: THIAMINE 200 MG/2 ML VIAL IV SCH (09:39)
[2018-12-24] MEDS: DILTIAZEM 60 MG TABLET PO SCH ×3 (09:39→21:05)
[2018-12-24 11:32] LABS: INR 1.9; PT Patient Result 20.4 SECS
[2018-12-24] MEDS: dilTIAZem Drip 125 MG/125 ML PREMIX IV SCH (14:21)
[2018-12-24] MEDS: COLLAGENASE OINT 30 GM TUBE TOP SCH (14:37)
[2018-12-24] MEDS: DEXTROSE 5% 1,000 ML IV SCH (14:42)
[2018-12-24] MEDS: ACETAMINOPHEN 650 MG SUPP RECTAL PRN (15:38)
[2018-12-24] MEDS: PROPOFOL 1,000 MG/100 ML BOTTLE IV SCH (21:04)
[2018-12-24] MEDS: HEPARIN DRIP 25,000 UNITS/500 ML PREMIX IV SCH (21:04)
[2018-12-25] MEDS: IPRATROPIUM 500 MCG/2.5 ML NEB RESP TX SCH ×4 (00:49→20:18)
[2018-12-25 01:34] LABS: Basophils # 0.1 10*3/uL (0.0-0.2); Basophils % 0.5 % (0.0-0.8); Hematocrit 44.2 VOL% (42.0-52.0); Hemoglobin 13.8 GM/DL (14.0-18.0); Immature Granulocytes % 5.5 %; Immature Granulocytes Absolute 1.01 #; Lymphocytes # 0.4 10*3/uL (1.4-4.0); Lymphocytes % 2.4 % (21.2-54.2); Mean Corpuscular HGB Conc 31.2 GM/DL (32-36); Mean Corpuscular Hemoglobin 30 PG (27-34); Mean Corpuscular Volume 96.3 FL (87-102); Mean Platelet Volume 13.6 FL (9.6-12.0); Monocytes # 1.3 10*3/uL (0.11-0.8); Monocytes % 6.8 % (1.7-12.7); NRBC # 0.04 10*3/uL; Neutrophils # 15.6 10*3/uL (1.4-7.4); Neutrophils % 84.8 % (38.7-73.9); Red Blood Count 4.59 MC/CUMM (3.8-5.5); Red Cell Distribution Width 17.1 % (9.3-17.3); White Blood Count 18.4 T/CUMM (4-12)
[2018-12-25 01:35] LABS: Platelet Count 85 T/CUMM (130-400)
[2018-12-25] MEDS: INSULIN REGULAR 100 UNIT/ML SUBCUT SCH ×4 (01:36→17:54)
[2018-12-25] MEDS: METOCLOPRAMIDE 10 MG/2 ML VIAL IV SCH ×4 (01:36→17:54)
[2018-12-25 01:55] LABS: Lymphocytes 2 % (20-55); Nucleated Red Blood Cells 1 (0-5); Segmented Neutrophils 93 % (50-85)
[2018-12-25 01:56] LABS: Platelet Estimate Decreased; Polychromasia Few
[2018-12-25 01:57] LABS: Albumin 2.1 G/DL (3.4-5.0); Calcium 8.4 MG/DL (8.5-10.1); Osmolality,Calculated 349.6 MOS/KG (273-304); Potassium 5.6 MMOL/L (3.5-5.1); Total Cells Counted 100; Total Protein 5.6 G/DL (6.4-8.3)
[2018-12-25 02:00] LABS: Bilirubin,Total 22.9 MG/DL (0.2-1.0)
[2018-12-25 02:06] LABS: Prealbumin 12.1 MG/DL (20-40)
[2018-12-25 03:58] LABS: ABG Base Excess -0.7 MMOL/L (-2.5-2.5); ABG HCO3 23.8 MMOL/L (20-26); ABG Oxygen Saturation 99.2 % (95-100); ABG PCO2 32.9 MM HG (35-48); ABG PH 7.443 (7.35-7.45); ABG TCO2 19.1 MMOL/L (23-27); Pt O2 Delivery Device Ventilator
[2018-12-25 05:26] LABS: Hepatitis B Surface Ag Quant < 0.10 Index; Hepatitis B Surface Ag Result Negative (Negative)
[2018-12-25 05:54] LABS: HIV Antigen/Antibody Result Nonreactive (Nonreactive); Hepatitis C Virus Ab Quant 0.24 Index; Hepatitis C Virus Ab Result Negative (Negative)
[2018-12-25] MEDS: MEROPENEM 500 MG in SODIUM CHLORIDE 0.9% 100 ML IV SCH ×2 (09:44→20:35)
[2018-12-25] MEDS: THIAMINE 200 MG/2 ML VIAL IV SCH (09:45)
[2018-12-25] MEDS: DILTIAZEM 60 MG TABLET PO SCH ×3 (09:45→20:35)
[2018-12-25] MEDS: COLLAGENASE OINT 30 GM TUBE TOP SCH (09:46)
[2018-12-25] MEDS: METOPROLOL TARTRATE 25 MG TABLET PO SCH ×2 (09:46→20:36)
[2018-12-25] MEDS: DEXAMETHASONE 4 MG/1 ML VIAL IV SCH ×2 (09:48→20:35)
[2018-12-25] MEDS: DEXTROSE 5% 1,000 ML IV SCH (11:35)
[2018-12-25] MEDS: dilTIAZem Drip 125 MG/125 ML PREMIX IV SCH (13:26)
[2018-12-25] MEDS: HEPARIN DRIP 25,000 UNITS/500 ML PREMIX IV SCH (13:31)
[2018-12-25] MEDS: PROPOFOL 1,000 MG/100 ML BOTTLE IV SCH (20:34)
[2018-12-26] MEDS: INSULIN REGULAR 100 UNIT/ML SUBCUT SCH ×4 (00:51→18:33)
[2018-12-26] MEDS: METOCLOPRAMIDE 10 MG/2 ML VIAL IV SCH ×4 (00:52→18:34)
[2018-12-26] MEDS: IPRATROPIUM 500 MCG/2.5 ML NEB RESP TX SCH ×4 (01:40→19:43)
[2018-12-26 03:48] LABS: ABG Base Excess -0.9 MMOL/L (-2.5-2.5); ABG HCO3 23.7 MMOL/L (20-26); ABG Oxygen Saturation 98.1 % (95-100); ABG PCO2 36.4 MM HG (35-48); ABG PH 7.412 (7.35-7.45); ABG TCO2 19.7 MMOL/L (23-27); Allen Test Positive; Pt O2 Delivery Device Ventilator
[2018-12-26] MEDS ORDERED: PERMETHRIN 1% LOTION 59 ML BOTTLE TOP ONE ×3 (04:19→09:30)
[2018-12-26 05:22] LABS: Albumin 2.2 G/DL (3.4-5.0); Basophils # 0.1 10*3/uL (0.0-0.2); Basophils % 0.5 % (0.0-0.8); Calcium 8.1 MG/DL (8.5-10.1); Hematocrit 44.5 VOL% (42.0-52.0); Hemoglobin 14.3 GM/DL (14.0-18.0); Immature Granulocytes % 3.9 %; Immature Granulocytes Absolute 1.13 #; Lymphocytes # 0.5 10*3/uL (1.4-4.0); Lymphocytes % 1.6 % (21.2-54.2); Mean Corpuscular HGB Conc 32.1 GM/DL (32-36); Mean Corpuscular Hemoglobin 31 PG (27-34); Mean Corpuscular Volume 95.3 FL (87-102); Mean Platelet Volume 13.2 FL (9.6-12.0); Monocytes # 1.4 10*3/uL (0.11-0.8); Monocytes % 4.7 % (1.7-12.7); NRBC # 0.04 10*3/uL; Neutrophils # 25.8 10*3/uL (1.4-7.4); Neutrophils % 89.3 % (38.7-73.9); Osmolality,Calculated 355.6 MOS/KG (273-304); Platelet Count 81 T/CUMM (130-400); Red Blood Count 4.67 MC/CUMM (3.8-5.5); Red Cell Distribution Width 17.4 % (9.3-17.3); Total Protein 5.7 G/DL (6.4-8.3); White Blood Count 28.8 T/CUMM (4-12)
[2018-12-26 05:31] LABS: Bilirubin,Total 25.4 MG/DL (0.2-1.0)
[2018-12-26 06:16] LABS: Acanthocytes Few; Anisocytosis 1+; Lymphocytes 2 % (20-55); Macrocytosis 1+; Nucleated Red Blood Cells 1 (0-5); Ovalocytes Few; Platelet Estimate Decreased; Polychromasia Few; Segmented Neutrophils 95 % (50-85); Total Cells Counted 100
[2018-12-26] MEDS: DEXTROSE 5% 1,000 ML IV SCH (07:35)
[2018-12-26] MEDS: COLLAGENASE OINT 30 GM TUBE TOP SCH (09:25)
[2018-12-26] MEDS: DILTIAZEM 60 MG TABLET PO SCH ×3 (14:05→21:21)
[2018-12-26] MEDS: DEXAMETHASONE 4 MG/1 ML VIAL IV SCH (14:05)
[2018-12-26] MEDS: METOPROLOL TARTRATE 25 MG TABLET PO SCH ×2 (14:05→21:21)
[2018-12-26] MEDS: MEROPENEM 500 MG in SODIUM CHLORIDE 0.9% 100 ML IV SCH (14:05)
[2018-12-26] MEDS: THIAMINE 200 MG/2 ML VIAL IV SCH (14:06)
[2018-12-26] MEDS: HEPARIN DRIP 25,000 UNITS/500 ML PREMIX IV SCH ×2 (14:43→18:09)
[2018-12-26] MEDS: dilTIAZem Drip 125 MG/125 ML PREMIX IV SCH (14:44)
[2018-12-26] MEDS: PROPOFOL 1,000 MG/100 ML BOTTLE IV SCH (20:33)
[2018-12-27] MEDS: METOCLOPRAMIDE 10 MG/2 ML VIAL IV SCH ×5 (00:03→23:57)
[2018-12-27] MEDS: INSULIN REGULAR 100 UNIT/ML SUBCUT SCH ×3 (00:03→13:23)
[2018-12-27] MEDS: IPRATROPIUM 500 MCG/2.5 ML NEB RESP TX SCH ×4 (00:52→19:20)
[2018-12-27] MEDS: DEXAMETHASONE 4 MG/1 ML VIAL IV SCH ×2 (01:57→13:24)
[2018-12-27] MEDS: MEROPENEM 500 MG in SODIUM CHLORIDE 0.9% 100 ML IV SCH ×2 (02:00→13:24)
[2018-12-27 03:21] LABS: Basophils # 0.1 10*3/uL (0.0-0.2); Basophils % 0.3 % (0.0-0.8); Hemoglobin 13.6 GM/DL (14.0-18.0); Immature Granulocytes % 3.2 %; Lymphocytes # 0.3 10*3/uL (1.4-4.0); Lymphocytes % 1.3 % (21.2-54.2); Mean Corpuscular HGB Conc 32.4 GM/DL (32-36); Mean Corpuscular Hemoglobin 31 PG (27-34); Mean Corpuscular Volume 94.6 FL (87-102); Monocytes # 1.1 10*3/uL (0.11-0.8); Monocytes % 4.2 % (1.7-12.7); NRBC # 0.05 10*3/uL; Platelet Count 62 T/CUMM (130-400); Red Blood Count 4.44 MC/CUMM (3.8-5.5); Red Cell Distribution Width 16.9 % (9.3-17.3); White Blood Count 25.2 T/CUMM (4-12)
[2018-12-27 03:58] LABS: Albumin 2.1 G/DL (3.4-5.0); Calcium 8.2 MG/DL (8.5-10.1); Osmolality,Calculated 352.8 MOS/KG (273-304); Total Protein 5.5 G/DL (6.4-8.3)
[2018-12-27 04:01] LABS: Bilirubin,Total 24.5 MG/DL (0.2-1.0)
[2018-12-27 04:01] LABS: Anisocytosis 1+; Band Neutrophils 5 % (0-10); Lymphocytes 1 % (20-55); Nucleated Red Blood Cells 1 (0-5); Segmented Neutrophils 91 % (50-85); Total Cells Counted 100
[2018-12-27 04:02] LABS: Platelet Estimate Decreased; Target Cells Few
[2018-12-27 04:58] LABS: ABG HCO3 22.7 MMOL/L (20-26); ABG Oxygen Saturation 98.9 % (95-100); ABG PCO2 35.1 MM HG (35-48); ABG PH 7.405 (7.35-7.45); Pt O2 Delivery Device Ventilator
[2018-12-27] MEDS: DEXTROSE 5% 1,000 ML IV SCH (06:17)
[2018-12-27] MEDS: DILTIAZEM 60 MG TABLET PO SCH ×2 (09:02→16:31)
[2018-12-27] MEDS: METOPROLOL TARTRATE 25 MG TABLET PO SCH (09:03)
[2018-12-27] MEDS: COLLAGENASE OINT 30 GM TUBE TOP SCH (09:03)
[2018-12-27] MEDS: THIAMINE 200 MG/2 ML VIAL IV SCH (09:03)
[2018-12-27] MEDS: dilTIAZem Drip 125 MG/125 ML PREMIX IV SCH (14:54)
[2018-12-27] MEDS ORDERED: DEXTROSE 5% NACL 0.45% 1,000 ML IV SCH (15:00)
[2018-12-27] MEDS ORDERED: LORazepam 2 MG/1 ML VIAL IV PRN (16:25)
[2018-12-27] MEDS: MORPHINE 4 MG/1 ML VIAL IV PRN ×4 (16:48→23:57)
[2018-12-27] MEDS: PROPOFOL 1,000 MG/100 ML BOTTLE IV SCH (21:38)
[2018-12-28] MEDS: MORPHINE 4 MG/1 ML VIAL IV PRN ×6 (01:38→23:09)
[2018-12-28] MEDS: IPRATROPIUM 500 MCG/2.5 ML NEB RESP TX SCH ×4 (02:57→21:06)
[2018-12-28] MEDS: METOCLOPRAMIDE 10 MG/2 ML VIAL IV SCH ×4 (05:35→23:32)
[2018-12-28] MEDS: COLLAGENASE OINT 30 GM TUBE TOP SCH (13:05)
[2018-12-29] MEDS: METOCLOPRAMIDE 10 MG/2 ML VIAL IV SCH ×3 (06:11→18:09)
[2018-12-29] MEDS: MORPHINE 4 MG/1 ML VIAL IV PRN ×4 (06:42→19:51)
[2018-12-29] MEDS: COLLAGENASE OINT 30 GM TUBE TOP SCH (08:50)
[2018-12-30] MEDS: MORPHINE 4 MG/1 ML VIAL IV PRN ×3 (00:03→09:39)
[2018-12-30] MEDS: METOCLOPRAMIDE 10 MG/2 ML VIAL IV SCH ×3 (00:06→11:26)
[2018-12-30] MEDS: COLLAGENASE OINT 30 GM TUBE TOP SCH (10:12)
[2018-12-30 16:39] VITALS: BP 67/39
== END 2018-12-30 17:34 | disposition expired | DRG 853 ==
LOC: N.ED 18:37 → SUATTDRO 21:19 → N.EDINP 21:19 → N.TELEN 22:50 → N.CC 12-14 12:27 → N.3E 12-30 14:56
PROVIDERS: ADMIT Internal Medicine; ATTEND Hospitalist